=== PATIENT | male | born 1955 | race African-American/Black ===

== ENCOUNTER 2017-02-04 19:46 | Emergency (ER) | payer MEDICARE ==
[2017-02-04] MEDS ORDERED: predniSONE 20 MG TAB ONE (20:11)
--- NOTE | 2017-02-04 21:29 | RAD ---
SINGLE VIEW OF THE CHEST: 02/04/17 COMPARISON: 02/03/17 HISTORY: Shortness of breath and dyspnea. History of COPD. FINDINGS: Single view of the chest shows a normal sized cardiomediastinal silhouette. There is no evidence of consolidation, mass, or pleural effusion. Degenerative changes are seen in the spine. IMPRESSION: No evidence of acute cardiopulmonary disease. POS: [facility]
[2017-02-04 21:38] LABS: #Basophils 0.1 thou/uL (0.0-0.2); #Eosinphils 0.1 thou/uL (0.0-0.7); #Lymphocytes 2.7 thou/uL (1.20-3.40); #Monocytes 0.6 thou/uL (0.11-0.59); #Neutrophils 3.4 thou/uL (1.40-6.50); %Basophils 0.9 % (0.0-1.0); %Eosinophils 0.7 % (0.0-10.0); %Monocytes 9.1 % (0.0-10.0); Hematocrit 32.6 % (42.0-52.0); Red Blood Cell (RBC) Count 3.21 mill/uL (4.70-6.10); White Blood Cell (WBC) Count 6.8 thou/uL (4.8-10.8)
[2017-02-04 21:51] LABS: ALT (SGPT) 53 U/L (8-55); AST (SGOT) 59 U/L (5-34); Alkaline Phosphatase 94 U/L (40-150); Anion Gap 15 mmol/L (10-20); BUN (Urea Nitrogen) 9 mg/dL (8.4-25.7); Bilirubin, Total 0.2 mg/dL (0.2-1.2); CK (CPK) 82 U/L (30-200); Calc. Creatinine Clearance 0 mL/min (70-130); Calcium 8.6 mg/dL (7.8-10.44); Carbon Dioxide 23 mmol/L (22-29); Chloride 115 mmol/L (98-107); Estimated GFR-MDRD Greater than 90; Globulin 2.4 g/dL (2.4-3.5); Lipase 37 U/L (8-78); Protein, Total 5.8 g/dL (6.0-8.3)
[2017-02-04 21:55] LABS: Troponin I Less than 0.010 ng/mL (< 0.028)
--- NOTE | 2017-02-27 15:19 | EKG ---
Test Reason : SOB Blood Pressure : / mmHG Vent. Rate : 093 BPM Atrial Rate : 093 BPM P-R Int : 148 ms QRS Dur : 082 ms QT Int : 364 ms P-R-T Axes : 078 052 065 degrees QTc Int : 452 ms Normal sinus rhythm Normal ECG Confirmed by REED PENALOZA, ERICKA ([id number]), editor magazine FIDELINA CHANEY ([id number]) on 02/27/2017 3:19:07 PM Referred By: Confirmed By:ERICKA MCBRIDE MD
== END 2017-02-04 22:50 | disposition home or self-care (01) ==
LOC: ERS 19:46
DX: J44.1 Chronic obstructive pulmonary disease with (acute) exacerbation (principal); I11.0 Hypertensive heart disease with heart failure; I50.9 Heart failure, unspecified; F41.9 Anxiety disorder, unspecified; F32.9 Major depressive disorder, single episode, unspecified; F17.210 Nicotine dependence, cigarettes, uncomplicated
CPT/HCPCS: 36415; 71010; 80053; 82550; 82553; 83690; 83880; 84484; 85025; 93005; 94640; 94760; 99284; J7506; J7620

== ENCOUNTER 2017-02-07 21:35 | Inpatient (IN) | payer MEDICARE ==
[2017-02-07] MEDS ORDERED: methylPREDNISolone Sod Succ/PF 125 MG/2 ML VIAL ONE (22:15)
[2017-02-07 22:25] LABS: PTT 24.5 SEC (22.9-36.1); Prothrombin Time 12.2 SEC (12.0-14.7)
[2017-02-07 22:33] LABS: ALT (SGPT) 74 U/L (8-55); AST (SGOT) 134 U/L (5-34); Alkaline Phosphatase 92 U/L (40-150); Anion Gap 22 mmol/L (10-20); BUN (Urea Nitrogen) 16 mg/dL (8.4-25.7); Bilirubin, Total 0.5 mg/dL (0.2-1.2); CK (CPK) 89 U/L (30-200); Calc. Creatinine Clearance 0 mL/min (70-130); Calcium 9.3 mg/dL (7.8-10.44); Carbon Dioxide 21 mmol/L (22-29); Chloride 102 mmol/L (98-107); Estimated GFR-MDRD 86
[2017-02-07 22:43] LABS: #Basophils 0.1 thou/uL (0.0-0.2); #Eosinphils 0.1 thou/uL (0.0-0.7); #Lymphocytes 2.6 thou/uL (1.20-3.40); #Monocytes 0.8 thou/uL (0.11-0.59); #Neutrophils 4.7 thou/uL (1.40-6.50); %Basophils 0.7 % (0.0-1.0); %Eosinophils 1.2 % (0.0-10.0); %Lymphocytes 31.2 % (21.0-51.0); %Monocytes 9.8 % (0.0-10.0); Neutrophil 65 % (42-75); Red Blood Cell (RBC) Count 3.92 mill/uL (4.70-6.10); White Blood Cell (WBC) Count 8.2 thou/uL (4.8-10.8)
[2017-02-07 22:51] LABS: Troponin I Less than 0.010 ng/mL (< 0.028)
[2017-02-07 22:52] LABS: Acetaminophen Less than 6.0 mcg/mL (10.0-30.0); Salicylate Less than 8.0 mg/dL (15.0-30.0)
--- NOTE | 2017-02-07 23:39 | RAD ---
AP CHEST: Indication: Shortness of breath. Comparison: 02-04-17 FINDINGS: There are stable changes of emphysema. There is partial pneumonectomy changes involving the right beni ng base. Heart size is within normal limits. No pleural effusion, airspace consolidation, or pneumot horax is noted. There is deformity involving the posterior left fourth rib which is stable. There is healed fracture deformity involving the posterior left 9th rib and right 8th ribs. No acute osseous abnormality is evident. IMPRESSION: No acute abnormality. POS: [facility]
--- NOTE | 2017-02-08 00:17 | PDOC.EVN ---
Event Note - Event Note Event Note: [id number] h&p dictated 1. Acute copd exacerbation 2. alcohol abuse 3. h/o htn 4. h/o subdural hematoma
[2017-02-08] MEDS ORDERED: Albuterol Sulfate 2.5 mg/3 ml Neb NEB PRN (00:51)
[2017-02-08 01:30] LABS: Amphetamine Not Detected (NotDetected); Methadone Not Detected (NotDetected); Methamphetamine Not Detected (NotDetected)
[2017-02-08 01:30] LABS: Troponin I Less than 0.010 ng/mL (< 0.028)
[2017-02-08] MEDS: cefTRIAXone\\ROCEPHIN 1 GM in Sodium Chloride 0.9% 100 ML IVPB SCH (02:17)
[2017-02-08] MEDS: Azithromycin 500 MG in Sodium Chloride 0.9% 250 ML 250 ML IVPB SCH (02:22)
[2017-02-08 02:50] LABS: Troponin I Less than 0.010 ng/mL (< 0.028)
[2017-02-08 03:01] VITALS: BMI 18.9
--- NOTE | 2017-02-08 06:39 | HP ---
DATE OF ADMISSION: 02/07/2017 CHIEF COMPLAINT: Dyspnea. HISTORY OF PRESENT ILLNESS: The patient is a 61-year-old male with past medical history of COPD, hypertension, hepatitis C, subdural hematoma, alcohol abuse, now came to the ER because of dyspnea; dyspnea started a few days back. Dyspnea is associated with cough, cough is associated with sputum production and chest congestion, sputum green to yellow in color. Per ED physician, this is the third visit in the last one week patient came to the ER for COPD exacerbation. The patient was adviced to get admitted last week when he came for COPD exacerbations, left from the ER. The patient complains of chest pain, the coughing and trouble breathing. Denies any dizziness, denies lightheadedness, denies any nausea, denies any vomiting. PAST MEDICAL HISTORY: As per HPI. PAST SURGICAL HISTORY: Foot surgery. SOCIAL HISTORY: Positive for alcohol, positive for smoking. Denies any drugs. He did drink alcohol today. MEDICATIONS: Reviewed. FAMILY HISTORY: Positive for heart problems. REVIEW OF SYSTEMS: Constitutional: Denies any fever, denies any chills. Eyes : Negative. Ears: Negative. Throat: Negative. Cardiovascular System: Positive for chest pain. Respiratory System: Positive for cough and sputum production. Cranial Nerve System: Denies syncope, denies lightheadedness. Psychiatric: Denies anxiety. Musculoskeletal: Denies any joint deformities. Integument: Denies any rash. All other review of systems are reviewed and are negative. PHYSICAL EXAMINATION: VITAL SIGNS: Blood pressure 140/70, afebrile, heart rate 110, respiratory rate 18, pulse ox 98%. GENERAL: The patient appears tired. HEENT: Patent. Nose normal. Ears normal. Teeth intact. Tongue is moist. NECK: Supple, no JVD. CARDIOVASCULAR SYSTEM: S1, S2 present. Regular rate and rhythm. No murmurs, no rubs, no gallops. RESPIRATORY SYSTEM: Positive for rhonchi, diminished breath sounds present. Positive for wheezing. No accessory muscles were seen. GASTROINTESTINAL: Abdomen is soft, nontender, no guarding, no organomegaly, no masses felt. MUSCULOSKELETAL: No edema. INTEGUMENTARY: No rashes were seen. PSYCHIATRIC: Mood appropriate at this time. MUSCULOSKELETAL: No edema. IMAGING STUDIES AND LABORATORY DATA: Chest x-ray, no obvious infiltrates seen. Labs at the time of H and P, sodium 141, potassium 3.7, chloride 102, CO2 of 71, BUN 16, creatinine 1.06, AST 134, ALT 74. Troponin less than 0.010. Serum total protein 7. PT 12.2, INR 0.9. CBC showed a white count of 8.2, hemoglobin 13.3, platelet count is 190. ASSESSMENT AND PLAN: The patient is a 61-year-old female. 1. Chronic obstructive pulmonary disease exacerbation. Plan to start the patient on breathing treatments and IV steroids. Plan to monitor the patient closely. 2. History of hypertension. Monitor blood pressure. Continue blood pressure meds. 3. History of subdural hematoma and hepatitis C, stable. Continue to monitor closely. 4. Deep venous thrombosis and gastrointestinal prophylaxis, PPI and SCDs. 5. Alcohol abuse. Plan to start po thiamine, folic acid, and p.r.n. Ativan. The case was discussed in detail with the patient. The patient is FULL CODE. MTDD
[2017-02-08] MEDS: Metoprolol Tartrate 25 MG TAB PO SCH ×2 (08:59→21:10)
[2017-02-08] MEDS: Lisinopril 2.5 MG TAB PO SCH (08:59)
[2017-02-08] MEDS: Folic Acid 1 MG TAB PO SCH (08:59)
[2017-02-08] MEDS: HYDROcodone/Acetaminophen 10/325 mg Tablet PO PRN ×2 (11:04→21:10)
[2017-02-08 12:43] LABS: Anion Gap 10 mmol/L (-14-95); T. Carbon Dioxide 23.8 mmol/L (1.0-85.0); pH (Venous) 7.441 (7.35-7.45); vO2 Saturation-calc 97.8 % (0.0-100.0)
--- NOTE | 2017-02-08 15:47 | PQF ---
CLINICAL DOCUMENTATION IMPROVEMENT CLARIFICATION FORM: ICD-10 Updated PLEASE DO AN ADDENDUM TO THE PROGRESS NOTE WITH ANY DOCUMENTATION UPDATES OR ADDITIONS AND CARRY THROUGH TO DC SUMMARY. THANK YOU. Date: 02/08/17 ATTN: SERGIO Please sean a box (or boxes) below if a more specific term indicating a diagnosis and/or acuity level for this condition can be identified. Please exercise your independent, professional judgment in responding to the clarification form. Clinical indicators are provided on the bottom of this form for your review. Thank you. [ ] Under-nutrition / Malnutrition:[ ] Mild [ ] Moderate[ ] Severe [ ] Unspecified [ ] Protein Calorie Malnutrition: [ ] Mild [ ] Moderate [ ] Severe [ ] Unspecified [ ] Marasmus [ ] Nutritional Edema [ ] Other Malnutrition (please specify) __ [ ] No diagnosis of Malnutrition [ ] Does not apply to this patient [ ] Unable to determine [ ] Other diagnosis: [ ] Present on Admission (POA); [ ] Yes [ ] No [ ] Unable to determine BMI Less than 19Under weight 19 - 24.9Healthy 25.0 - 29.9Slightly Overweight 30.0 - 34.9Obese 35.0 - 39.9Severely Obese 40.0 and OverMorbidly Obese Values Commonly Used to Grade the Severity of Protein-Energy Malnutrition Measurement Normal Mild Moderate Severe Normal weight (%) 38990 8590 7585 < 75 Body mass index 1924 1818.9 1617.9 < 16 Serum albumin (g/dL) 3.55.0 3.13.4 2.43.0 < 2.4 Serum transferrin (mg/dL) 269507 330119 459359 < 150 Total lymphocyte count (per mm3) 50583598 27732470 800 1500 < 800 Delayed hypersensitivity index 2 2 1 0 From The Merck Manual of Diagnosis and Therapy, Edition 18, edited by Sean Bueno. Copyright 2006 by [employer], [place]. Available at : http://www.merck.com/mmpe/sec01/ch002/ki420s.html. Accessed 12/01/06. The following CLINICAL INDICATORS - Signs / Symptoms are documented in the medical record: BMI 18.9 DIETARY NOTE 02/08: "REPORTS UBW AT 140 LBS NUT HAS RECENTLY LOST 20 POUNDS ' SINCE BEING SICK ON AND OFF'" "KCAL AND PROTEIN REQUIREMENTS NOT MET" RISKS: ALCOHOL ABUSE TREATMENT: DIETARY CONSULT (This form is maintained as a part of the permanent medical record) 2015 [employer]. All Rights Reserved JOSE [email or web address] Office: [phone] MTDD
[2017-02-08] MEDS: Sodium Chloride 0.9% 1,000 ML IV SCH (19:43)
[2017-02-08] MEDS: Mirtazapine 15 MG TAB PO SCH (21:11)
[2017-02-09] MEDS: cefTRIAXone\\ROCEPHIN 1 GM in Sodium Chloride 0.9% 100 ML IVPB SCH (00:21)
[2017-02-09] MEDS: HYDROcodone/Acetaminophen 10/325 mg Tablet PO PRN ×3 (00:32→21:42)
[2017-02-09] MEDS: Azithromycin 500 MG in Sodium Chloride 0.9% 250 ML 250 ML IVPB SCH (02:18)
[2017-02-09 06:34] LABS: Anion Gap 12 mmol/L (10-20); BUN (Urea Nitrogen) 17 mg/dL (8.4-25.7); Calc. Creatinine Clearance 75 mL/min (70-130); Carbon Dioxide 27 mmol/L (22-29); Chloride 103 mmol/L (98-107); Estimated GFR-MDRD Greater than 90
[2017-02-09 06:36] LABS: #Lymphocytes 0.5 thou/uL (1.20-3.40); #Monocytes 0.5 thou/uL (0.11-0.59); #Neutrophils 7.8 thou/uL (1.40-6.50); %Basophils 0.3 % (0.0-1.0); %Eosinophils 0.1 % (0.0-10.0); Hematocrit 39.1 % (42.0-52.0); Mean Platelet Volume 8.8 fL (7.4-10.4); White Blood Cell (WBC) Count 8.9 thou/uL (4.8-10.8)
[2017-02-09] MEDS: Lisinopril 2.5 MG TAB PO SCH (09:35)
[2017-02-09] MEDS: Folic Acid 1 MG TAB PO SCH (09:35)
[2017-02-09] MEDS: Metoprolol Tartrate 25 MG TAB PO SCH ×2 (09:35→21:21)
--- NOTE | 2017-02-09 11:02 | PQF ---
CLINICAL DOCUMENTATION IMPROVEMENT CLARIFICATION FORM: ICD-10 Updated PLEASE DO AN ADDENDUM TO THE PROGRESS NOTE WITH ANY DOCUMENTATION UPDATES OR ADDITIONS AND CARRY THROUGH TO DC SUMMARY. THANK YOU. Date: 02/09/17 ATTN: DR. HILL Please sean a box (or boxes) below if a more specific term indicating a diagnosis and/or acuity level for this condition can be identified. Please exercise your independent, professional judgment in responding to the clarification form. Clinical indicators are provided on the bottom of this form for your review. Thank you. [ ] Under-nutrition / Malnutrition:[ ] Mild [ ] Moderate[ ] Severe [ ] Unspecified [ ] Protein Calorie Malnutrition: [ ] Mild [ ] Moderate [ ] Severe [ ] Unspecified [ ] Marasmus [ ] Nutritional Edema [ ] Other Malnutrition (please specify) __ [ ] No diagnosis of Malnutrition [ ] Does not apply to this patient [ ] Unable to determine [ ] Other diagnosis: [ ] Present on Admission (POA); [ ] Yes [ ] No [ ] Unable to determine BMI Less than 19Under weight 19 - 24.9Healthy 25.0 - 29.9Slightly Overweight 30.0 - 34.9Obese 35.0 - 39.9Severely Obese 40.0 and OverMorbidly Obese Values Commonly Used to Grade the Severity of Protein-Energy Malnutrition Measurement Normal Mild Moderate Severe Normal weight (%) 18603 8590 7585 < 75 Body mass index 1924 1818.9 1617.9 < 16 Serum albumin (g/dL) 3.55.0 3.13.4 2.43.0 < 2.4 Serum transferrin (mg/dL) 521700 507107 825098 < 150 Total lymphocyte count (per mm3) 73190188 82572141 800 1500 < 800 Delayed hypersensitivity index 2 2 1 0 From The Merck Manual of Diagnosis and Therapy, Edition 18, edited by Sean Bueno. Copyright 2006 by [employer], [place]. Available at : http://www.merck.com/mmpe/sec01/ch002/fn014v.html. Accessed 12/01/06. The following CLINICAL INDICATORS - Signs / Symptoms are documented in the medical record: BMI 18.9 DIETARY NOTE 02/08: "REPORTS UBW AT 140 LBS NUT HAS RECENTLY LOST 20 POUNDS ' SINCE BEING SICK ON AND OFF'" "KCAL AND PROTEIN REQUIREMENTS NOT MET" RISKS: ALCOHOL ABUSE TREATMENT: DIETARY CONSULT (This form is maintained as a part of the permanent medical record) 2014 [email or web address]. All Rights Reserved JOSE [email or web address] Office: [phone] [facility]
--- NOTE | 2017-02-09 13:02 | PDOC.PN ---
- Subjective Encounter Start Date: 02/09/17 Encounter Start Time: 13:00 breathing better no f/c no n/v - Objective MAR Reviewed: Yes Vital Signs & Weight: Vital Signs (12 hours) Temp Pulse Resp BP BP Pulse Ox 02/09/17 09:35 70 118/80 02/09/17 08:00 97.4 F L 70 18 118/80 95 02/09/17 04:00 97.8 F 67 20 148/79 H 95 Weight Admit Weight 120 lb 14.4 oz Weight 125 lb 6.4 oz I&O: 02/08/17 02/09/17 02/10/17 06:59 06:59 06:59 Intake Total 630 5208 Output Total 350 3425 Balance 280 1783 Result Diagrams: 02/09/17 05:37 02/09/17 05:37 Phys Exam - Physical Examination Constitutional: NAD HEENT: PERRLA Neck: no JVD scattered wheezing, good air entry Cardiovascular: RRR Gastrointestinal: non-tender Musculoskeletal: pulses present Neurological: moves all 4 limbs Psychiatric: A&O x 3 Dx/Plan (1) COPD exacerbation Code(s): J44.1 - CHRONIC OBSTRUCTIVE PULMONARY DISEASE W (ACUTE) EXACERBATION Status: Acute (2) Alcohol abuse Code(s): F10.10 - ALCOHOL ABUSE, UNCOMPLICATED Status: Chronic (3) Anxiety and depression Code(s): F41.9 - ANXIETY DISORDER, UNSPECIFIED; F32.9 - MAJOR DEPRESSIVE DISORDER, SINGLE EPISODE, UNSPECIFIED Status: Chronic (4) Chronic pain Code(s): G89.29 - OTHER CHRONIC PAIN Status: Chronic (5) Hepatitis C Code(s): B19.20 - UNSPECIFIED VIRAL HEPATITIS C WITHOUT HEPATIC COMA Status: Chronic (6) Hypertension Code(s): I10 - ESSENTIAL (PRIMARY) HYPERTENSION Status: Chronic (7) Tobacco abuse Code(s): Z72.0 - TOBACCO USE Status: Chronic - Plan * pt is under weight with some h/o wt loss. will have pcp evaluate that as out pt. * he has been advised to stop smoking and drinking * copd is better- will change to po steroids and po abx * d/c in am if clinically better
[2017-02-09] MEDS: Sodium Chloride 0.9% 1,000 ML IV SCH (14:53)
[2017-02-09] MEDS: predniSONE 20 MG TAB PO SCH (17:25)
[2017-02-09] MEDS: Mirtazapine 15 MG TAB PO SCH (21:21)
[2017-02-10] MEDS: HYDROcodone/Acetaminophen 10/325 mg Tablet PO PRN ×2 (01:55→09:40)
[2017-02-10 06:48] LABS: #Lymphocytes 1.5 thou/uL (1.20-3.40); #Monocytes 0.6 thou/uL (0.11-0.59); #Neutrophils 8.6 thou/uL (1.40-6.50); %Basophils 0.1 % (0.0-1.0); %Eosinophils 0.2 % (0.0-10.0); %Lymphocytes 14.1 % (21.0-51.0); %Monocytes 5.8 % (0.0-10.0); Hematocrit 37.5 % (42.0-52.0); Mean Platelet Volume 9.2 fL (7.4-10.4); Red Blood Cell (RBC) Count 3.69 mill/uL (4.70-6.10); White Blood Cell (WBC) Count 10.8 thou/uL (4.8-10.8)
[2017-02-10 06:59] LABS: Anion Gap 11 mmol/L (10-20); BUN (Urea Nitrogen) 20 mg/dL (8.4-25.7); Calc. Creatinine Clearance 75 mL/min (70-130); Carbon Dioxide 25 mmol/L (22-29); Chloride 106 mmol/L (98-107); Estimated GFR-MDRD Greater than 90
[2017-02-10 08:11] VITALS: BP 146/97; TEMP 98.3
[2017-02-10] MEDS: Lisinopril 2.5 MG TAB PO SCH (09:39)
[2017-02-10] MEDS: Folic Acid 1 MG TAB PO SCH (09:39)
[2017-02-10] MEDS: Metoprolol Tartrate 25 MG TAB PO SCH (09:40)
[2017-02-10] MEDS: predniSONE 20 MG TAB PO SCH (09:40)
--- NOTE | 2017-02-10 11:36 | PDOC.PN ---
- Subjective Encounter Start Date: 02/10/17 Encounter Start Time: 11:36 Patient seen and examined. No new complaints. No overnight events - Objective MAR Reviewed: Yes Vital Signs & Weight: Vital Signs (12 hours) Temp Pulse Resp BP BP Pulse Ox 02/10/17 09:39 91 146/97 H 02/10/17 07:05 98.3 F 91 18 146/97 H 94 L 02/10/17 04:00 98.0 F 61 18 130/84 93 L Weight Admit Weight 120 lb 14.4 oz Weight 125 lb 6.4 oz I&O: 02/09/17 02/10/17 02/11/17 06:59 06:59 06:59 Intake Total 5208 Output Total 3425 Balance 1783 Result Diagrams: 02/10/17 06:15 02/10/17 06:15 Phys Exam - Physical Examination Constitutional: NAD HEENT: PERRLA Neck: no JVD Respiratory: no rales Cardiovascular: no significant murmur Gastrointestinal: non-tender Musculoskeletal: pulses present Neurological: normal sensation Psychiatric: A&O x 3 Dx/Plan (1) COPD exacerbation Code(s): J44.1 - CHRONIC OBSTRUCTIVE PULMONARY DISEASE W (ACUTE) EXACERBATION Status: Resolved (2) Alcohol abuse Code(s): F10.10 - ALCOHOL ABUSE, UNCOMPLICATED Status: Chronic (3) Anxiety and depression Code(s): F41.9 - ANXIETY DISORDER, UNSPECIFIED; F32.9 - MAJOR DEPRESSIVE DISORDER, SINGLE EPISODE, UNSPECIFIED Status: Chronic (4) Chronic pain Code(s): G89.29 - OTHER CHRONIC PAIN Status: Chronic (5) Hepatitis C Code(s): B19.20 - UNSPECIFIED VIRAL HEPATITIS C WITHOUT HEPATIC COMA Status: Chronic (6) Hypertension Code(s): I10 - ESSENTIAL (PRIMARY) HYPERTENSION Status: Chronic (7) Tobacco abuse Code(s): Z72.0 - TOBACCO USE Status: Chronic - Plan * . doing well d/c home
[2017-02-10] MEDS: Sodium Chloride 0.9% 1,000 ML IV SCH (11:46)
--- NOTE | 2017-02-10 14:28 | DIS ---
DATE OF ADMISSION: 02/08/2017 DATE OF DISCHARGE: 02/10/2017 DISCHARGE DIAGNOSES: 1. Acute chronic obstructive pulmonary disease exacerbation, resolved. 2. Acute bronchitis, better. 3. Alcohol abuse, counseled. 4. Tobacco abuse, the patient was counseled. 5. Anxiety, stable. 6. Chronic pain, stable. 7. Hepatitis C, stable. 8. Hypertension, stable. DISCHARGE MEDICATIONS: Include all home medications plus Levaquin 500 mg p.o. daily for 5 days and Medrol Dosepak. BRIEF HOSPITAL COURSE: This is a 61-year-old pleasant gentleman with a history of smoking and COPD, who came into the hospital with dyspnea. Please refer to the admitting physician's H\T\P for furth er details. He had some cough and chest congestion as well as chest x-ray was negative for pneumoni a. The patient was treated as COPD exacerbation secondary to acute bronchitis with IV antibiotics, nebulizer treatments, IV steroids. He improved during this hospital stay. Steroids were transition ed to p.o. He feels much better right now. He has been asked not to smoke and drink. He understan ds all this. He is asked to come back to the emergency room in case symptoms recur. Right now, he is medically stable to be discharged. He is asked to follow up with PCP. He is medically stable to be discharged. Total time for this discharge took 35 minutes.
--- NOTE | 2017-02-12 14:55 | EKG ---
Test Reason : SOB Blood Pressure : / mmHG Vent. Rate : 114 BPM Atrial Rate : 114 BPM P-R Int : 134 ms QRS Dur : 082 ms QT Int : 332 ms P-R-T Axes : 079 051 060 degrees QTc Int : 457 ms Sinus tachycardia Anterior infarct , age undetermined Abnormal ECG Confirmed by KALEE ARIAS D.O. ([id number]), makeup editor FIDELINA CHANEY ([id number]) on 02/12/2017 2:55:42 PM Referred By: Confirmed By:KALEE ARIAS D.O.
== END 2017-02-10 12:09 | disposition home or self-care (01) | DRG 192 ==
LOC: ERS 21:35 → 2NO 02-08 01:04
PROVIDERS: ADMIT Internal Medicine; ATTEND Internal Medicine
DX: J44.0 Chronic obstructive pulmonary disease with (acute) lower respiratory infection (principal); I10 Essential (primary) hypertension; J20.9 Acute bronchitis, unspecified; J44.1 Chronic obstructive pulmonary disease with (acute) exacerbation; B18.2 Chronic viral hepatitis C; Z72.0 Tobacco use; F10.10 Alcohol abuse, uncomplicated; F41.9 Anxiety disorder, unspecified; G89.29 Other chronic pain; F32.9 Major depressive disorder, single episode, unspecified
CPT/HCPCS: 36415; 71010; 80048; 80053; 80306; 80307; 82330; 82435; 82550; 82553; 82803; 83880; 84132; 84295; 84484; 85014; 85025; 85610; 85730; 93005; 96374; A4216; J0456; J0696; J2920; J2930; J7050; J7506; J7620

== ENCOUNTER 2017-02-15 18:49 | Emergency (ER) | payer MEDICARE, MEDICAID ==
[2017-02-15] MEDS ORDERED: Dexamethasone 4 mg/ml Vial ONE (19:24)
[2017-02-15] MEDS ORDERED: Albuterol Sulfate 2.5 mg/3 ml Neb ONE (19:24)
[2017-02-15] MEDS ORDERED: Albuterol Sulfate 2.5 mg/0.5 ml Neb ONE (19:24)
== END 2017-02-15 19:51 | disposition left against medical advice (07) ==
LOC: ERS 18:49
DX: R05 Cough (principal); I11.0 Hypertensive heart disease with heart failure; I50.9 Heart failure, unspecified; J44.9 Chronic obstructive pulmonary disease, unspecified; F32.9 Major depressive disorder, single episode, unspecified; F41.9 Anxiety disorder, unspecified; F17.210 Nicotine dependence, cigarettes, uncomplicated; Z79.899 Other long term (current) drug therapy
CPT/HCPCS: 94640; 96374; J1100; J7611

== ENCOUNTER 2017-03-03 17:55 | Emergency (ER) | payer MEDICARE, MEDICAID ==
[2017-03-03] MEDS ORDERED: methylPREDNISolone Sod Succ/PF 125 MG/2 ML VIAL ONE (18:23)
--- NOTE | 2017-03-03 19:01 | RAD ---
PORTABLE CHEST ONE VIEW: 03/03/17 at 6:27 p.m. HISTORY: Shortness of breath, dyspnea. FINDINGS: Comparison is made with exam of 02/07/17. The heart size is normal. The aorta is tortuous. No focal areas of consolidation, pneumothorax or pl eural effusions are seen. Emphysematous changes are again noted. Healed fracture deformity of the po sterior left 9th rib and right 8th rib again seen. IMPRESSION: No acute process. POS: [facility]
[2017-03-03 19:12] LABS: ALT (SGPT) 51 U/L (8-55); AST (SGOT) 59 U/L (5-34); Alkaline Phosphatase 84 U/L (40-150); Anion Gap 17 mmol/L (10-20); BUN (Urea Nitrogen) 6 mg/dL (8.4-25.7); Bilirubin, Total 0.8 mg/dL (0.2-1.2); Calc. Creatinine Clearance 0 mL/min (70-130); Calcium 9.8 mg/dL (7.8-10.44); Carbon Dioxide 24 mmol/L (22-29); Chloride 99 mmol/L (98-107); Estimated GFR-MDRD Greater than 90; Protein, Total 7.4 g/dL (6.0-8.3)
[2017-03-03 19:31] LABS: #Basophils 0.1 thou/uL (0.0-0.2); #Eosinphils 0.1 thou/uL (0.0-0.7); #Lymphocytes 3.2 thou/uL (1.20-3.40); #Monocytes 0.8 thou/uL (0.11-0.59); #Neutrophils 3.8 thou/uL (1.40-6.50); %Basophils 1.1 % (0.0-1.0); %Eosinophils 0.8 % (0.0-10.0); %Lymphocytes 39.9 % (21.0-51.0); %Monocytes 10.4 % (0.0-10.0); Band 3 % (5-11); Hematocrit 43.4 % (42.0-52.0); Macrocytosis SLIGHT = 6-15 cells (100X) (0-5/hpf); Neutrophil 40 % (42-75); Ovalocytes SLIGHT = 2-5 cells (100X) (0-1/hpf); Reactive Lymphocytes 8 % (0-10); Red Blood Cell (RBC) Count 4.25 mill/uL (4.70-6.10); White Blood Cell (WBC) Count 7.9 thou/uL (4.8-10.8)
== END 2017-03-03 22:23 | disposition home or self-care (01) ==
LOC: ERS 17:55
DX: J44.1 Chronic obstructive pulmonary disease with (acute) exacerbation (principal); I11.0 Hypertensive heart disease with heart failure; I50.9 Heart failure, unspecified; F41.9 Anxiety disorder, unspecified; F32.9 Major depressive disorder, single episode, unspecified; F17.210 Nicotine dependence, cigarettes, uncomplicated; Z79.899 Other long term (current) drug therapy
CPT/HCPCS: 71010; 80053; 85025; 94640; 96374; J2930; J7620

== ENCOUNTER 2017-03-10 20:07 | Emergency (ER) | payer MEDICARE, MEDICAID | END 2017-03-10 20:35 | disposition left against medical advice (07) | LOC: ERS 20:07 | DX: F10.10 Alcohol abuse, uncomplicated (principal); J44.9 Chronic obstructive pulmonary disease, unspecified; M87.9 Osteonecrosis, unspecified; I11.0 Hypertensive heart disease with heart failure; I50.9 Heart failure, unspecified; F41.9 Anxiety disorder, unspecified; F32.9 Major depressive disorder, single episode, unspecified; F17.210 Nicotine dependence, cigarettes, uncomplicated; Z79.899 Other long term (current) drug therapy | CPT/HCPCS: 93005 ==

== ENCOUNTER 2017-03-11 00:23 | Emergency (ER) | payer MEDICARE, MEDICAID ==
[2017-03-11] MEDS ORDERED: Dexamethasone 10 MG/ML VIAL ONE (02:03)
[2017-03-11 02:15] LABS: #Basophils 0.1 thou/uL (0.0-0.2); #Eosinphils 0.1 thou/uL (0.0-0.7); #Monocytes 0.8 thou/uL (0.11-0.59); #Neutrophils 2.7 thou/uL (1.40-6.50); %Basophils 2.2 % (0.0-1.0); %Eosinophils 1.3 % (0.0-10.0); %Lymphocytes 44.6 % (21.0-51.0); Hematocrit 42.1 % (42.0-52.0); Mean Platelet Volume 8.3 fL (7.4-10.4); Red Blood Cell (RBC) Count 4.05 mill/uL (4.70-6.10); White Blood Cell (WBC) Count 6.7 thou/uL (4.8-10.8)
[2017-03-11 02:33] LABS: ALT (SGPT) 35 U/L (8-55); AST (SGOT) 54 U/L (5-34); Alkaline Phosphatase 116 U/L (40-150); Anion Gap 14 mmol/L (10-20); BUN (Urea Nitrogen) 9 mg/dL (8.4-25.7); Bilirubin, Total 0.4 mg/dL (0.2-1.2); Calc. Creatinine Clearance 0 mL/min (70-130); Calcium 9.3 mg/dL (7.8-10.44); Carbon Dioxide 28 mmol/L (22-29); Chloride 109 mmol/L (98-107); Estimated GFR-MDRD Greater than 90; Globulin 2.9 g/dL (2.4-3.5); Protein, Total 7.1 g/dL (6.0-8.3)
[2017-03-11 02:37] LABS: Troponin I Less than 0.010 ng/mL (< 0.028)
--- NOTE | 2017-03-11 07:59 | RAD ---
RADIOGRAPH CHEST 1 VIEW: Date: 03/11/17 Time: 0106 hours COMPARISON: 04/21/16. HISTORY: 61-year-old male with dyspnea. FINDINGS: There is hyperinflation of the lungs, consistent with COPD. There is no evidence of air space densi ty, pneumothorax, or pulmonary edema. The left lateral costophrenic angle is sharp. Right lateral c ostophrenic angle is blunted, unchanged since 04/21/16. There is no cardiomegaly. There is no interv al change overall. IMPRESSION: 1. No acute pulmonary findings. 2. Emphysema. 3. Mild right lateral basilar chronic pleural thickening. jn [] POS: [facility]
== END 2017-03-11 03:40 | disposition home or self-care (01) ==
LOC: ERS 00:23
DX: J44.1 Chronic obstructive pulmonary disease with (acute) exacerbation (principal); F41.9 Anxiety disorder, unspecified; F32.9 Major depressive disorder, single episode, unspecified; F17.210 Nicotine dependence, cigarettes, uncomplicated; I11.0 Hypertensive heart disease with heart failure; I50.9 Heart failure, unspecified; Z79.899 Other long term (current) drug therapy
CPT/HCPCS: 36415; 71010; 80053; 82553; 84484; 85025; 94640; 96372; J1100; J7620

== ENCOUNTER 2017-05-22 19:00 | Emergency (ER) | payer MEDICARE, MEDICAID ==
[~2017-05-22 19:00] MED LIST: ISOVUE-370 76%-LOCM 1 ML ONE
[2017-05-22 19:41] LABS: #Basophils 0.1 thou/uL (0.0-0.2); #Eosinphils 0.2 thou/uL (0.0-0.7); #Lymphocytes 2.1 thou/uL (1.20-3.40); #Monocytes 0.6 thou/uL (0.11-0.59); #Neutrophils 2.6 thou/uL (1.40-6.50); %Basophils 1.4 % (0.0-1.0); %Eosinophils 3.2 % (0.0-10.0); %Lymphocytes 38.6 % (21.0-51.0); %Monocytes 10.5 % (0.0-10.0); %Neutrophils 46.4 % (42.0-75.0); Hemoglobin 13.2 g/dL (14.0-18.0); Mean Corpuscular HGB CONC 34.4 g/dL (32.0-36.0); Mean Corpuscular Hemoglobin 33.5 pg (27.0-31.0); Mean Corpuscular Volume 97.4 fl (80.0-94.0); Platelet Count 183 thou/uL (130-400); RBC Distribution Width 12.4 % (11.5-14.5); Red Blood Cell (RBC) Count 3.95 mill/uL (4.70-6.10); White Blood Cell (WBC) Count 5.5 thou/uL (4.8-10.8)
--- NOTE | 2017-05-22 19:52 | RAD ---
CHEST ONE VIEW 05/22/17 HISTORY: Dyspnea. COMPARISON: Chest one view, 03/18/17. FINDINGS: Chronic blunting of the right lateral costophrenic sulcus. Suture material right lower lobe. No new focal air space consolidation, pneumothorax or effusion. Cardiac silhouette and mediastinal co ntours are within normal limits. IMPRESSION: No acute intrathoracic abnormality. POS: [facility]
[2017-05-22 20:04] LABS: ALT (SGPT) 53 U/L (8-55); AST (SGOT) 123 U/L (5-34); Albumin 4.5 g/dL (3.5-5.0); Alkaline Phosphatase 82 U/L (40-150); Anion Gap 18 mmol/L (10-20); BUN (Urea Nitrogen) 7 mg/dL (8.4-25.7); Bilirubin, Total 0.5 mg/dL (0.2-1.2); CK (CPK) 229 U/L (30-200); Calc. Creatinine Clearance 0 mL/min (70-130); Carbon Dioxide 22 mmol/L (22-29); Chloride 103 mmol/L (98-107); Estimated GFR-MDRD Greater than 90; Globulin 3.3 g/dL (2.4-3.5); Glucose 73 mg/dL (70-105); Lipase 27 U/L (8-78); Potassium 4.3 mmol/L (3.5-5.1); Protein, Total 7.8 g/dL (6.0-8.3); Sodium 139 mmol/L (136-145)
[2017-05-22] MEDS ORDERED: methylPREDNISolone Sod Succ/PF 125 MG/2 ML VIAL ONE (20:04)
[2017-05-22 20:05] LABS: CKMB 3.7 ng/mL (0-6.6); Troponin I Less than 0.010 ng/mL (< 0.028)
[2017-05-22 21:07] LABS: Bilirubin Negative (Negative); Blood, Urine Negative (Negative); Clarity CLEAR (Clear); Glucose, Urine (Dipstick) Negative (Negative); Leukocyte Negative (Negative); Nitrite Negative (Negative); Protein, Urine (Dipstick) Negative (Neg-Trace); Specific Gravity, Urine 1.011 (1.002-1.036); Urobilinogen 0.2 mg/dL (0.2-1.0); pH, Urine 5.5 (5.0-9.0)
--- NOTE | 2017-05-22 21:32 | CT ---
CTA CHEST WITH 3D VOLUME RENDERING 05/22/17 Reference made to 11/12/16. CLINICAL HISTORY: Intermittent, progressive shortness of breath. FINDINGS: There is no large, central filling defect of pulmonary arterial system to indicate pulmonary embolus. The thoracic aorta is nonaneurysmal. There is extensive pulmonary emphysema. Incompletely assessed s ubcentimeter hypodensity of the lateral aspect of the right kidney is incompletely evaluated. There i s diffuse osseous degenerative change. IMPRESSION: 1. No large, central pulmonary embolus. 2. Pulmonary emphysema. POS: [facility]
[2017-05-23 00:41] LABS: Lactic Acid 2.2 mmol/L (0.5-2.2)
--- NOTE | 2017-06-12 22:41 | EKG ---
Test Reason : Blood Pressure : / mmHG Vent. Rate : 084 BPM Atrial Rate : 084 BPM P-R Int : 146 ms QRS Dur : 080 ms QT Int : 382 ms P-R-T Axes : 079 042 057 degrees QTc Int : 451 ms Normal sinus rhythm Early repolarization Normal ECG Confirmed by WARREN LAKE ([id number]), editorial cartoonist FIDELINA CHANEY ([id number]) on 06/12/2017 10:40:35 PM Referred By: Confirmed By:W[place]EN [place]
== END 2017-05-23 01:05 | disposition home or self-care (01) ==
LOC: ERS 19:00
DX: J44.1 Chronic obstructive pulmonary disease with (acute) exacerbation (principal); B19.20 Unspecified viral hepatitis C without hepatic coma; I11.0 Hypertensive heart disease with heart failure; I50.9 Heart failure, unspecified; F41.9 Anxiety disorder, unspecified; F32.9 Major depressive disorder, single episode, unspecified; F17.210 Nicotine dependence, cigarettes, uncomplicated; Z71.6 Tobacco abuse counseling
CPT/HCPCS: 36415; 71045; 71275; 80053; 81003; 82553; 83605; 83690; 83880; 84484; 85025; 85379; 93005; 94640; 94760; 96361; 96365; 96375; 99406; J1956; J2930; J7620

== ENCOUNTER 2017-06-09 08:14 | Emergency (ER) | payer MEDICARE, MEDICAID ==
[2017-06-09 08:56] LABS: #Eosinphils 0.1 thou/uL (0.0-0.7); #Lymphocytes 1.9 thou/uL (1.20-3.40); #Monocytes 0.6 thou/uL (0.11-0.59); #Neutrophils 4.4 thou/uL (1.40-6.50); %Basophils 0.1 % (0.0-1.0); %Eosinophils 1.4 % (0.0-10.0); %Lymphocytes 26.8 % (21.0-51.0); %Monocytes 9.2 % (0.0-10.0); %Neutrophils 62.5 % (42.0-75.0); Hemoglobin 14.8 g/dL (14.0-18.0); Mean Corpuscular HGB CONC 31.8 g/dL (32.0-36.0); Mean Corpuscular Hemoglobin 31.6 pg (27.0-31.0); Mean Corpuscular Volume 99.5 fl (80.0-94.0); Mean Platelet Volume 8.3 fL (7.4-10.4); Platelet Count 254 thou/uL (130-400); RBC Distribution Width 13.6 % (11.5-14.5); Red Blood Cell (RBC) Count 4.67 mill/uL (4.70-6.10)
[2017-06-09 09:16] LABS: CKMB 1.5 ng/mL (0-6.6); Troponin I Less than 0.010 ng/mL (< 0.028)
[2017-06-09 10:32] LABS: Albumin 4.3 g/dL (3.5-5.0)
[2017-06-09 10:33] LABS: Chloride 106 mmol/L (98-107); Potassium 4.1 mmol/L (3.5-5.1); Sodium 142 mmol/L (136-145)
[2017-06-09 10:34] LABS: Calcium 9.7 mg/dL (7.8-10.44); Glucose 64 mg/dL (70-105)
[2017-06-09] MEDS ORDERED: Albuterol Sulfate 2.5 mg/3 ml Neb ONE (10:34)
[2017-06-09 10:35] LABS: Globulin 3.3 g/dL (2.4-3.5); Protein, Total 7.6 g/dL (6.0-8.3)
[2017-06-09 10:36] LABS: Anion Gap 18 mmol/L (10-20); Bilirubin, Total 0.5 mg/dL (0.2-1.2); Carbon Dioxide 22 mmol/L (22-29)
[2017-06-09 10:37] LABS: Alcohol 167 mg/dL (Less than 10); Alkaline Phosphatase 78 U/L (40-150)
[2017-06-09 10:38] LABS: Calc. Creatinine Clearance 0 mL/min (70-130); Estimated GFR-MDRD Greater than 90
[2017-06-09 10:39] LABS: BUN (Urea Nitrogen) 9 mg/dL (8.4-25.7)
--- NOTE | 2017-06-09 10:39 | RAD ---
CHEST ONE VIEW: History: Dyspnea. Comparison: 05-22-17 FINDINGS: Small right pleural effusion. Cardiac silhouette and mediastinal contours are within normal limits. N o focal consolidation. There is trace material in the right lower lobe. IMPRESSION: Blunting right lateral costophrenic sulcus may be chronic scarring. POS: [facility]
[2017-06-09 10:40] LABS: ALT (SGPT) 27 U/L (8-55); AST (SGOT) 50 U/L (5-34)
[2017-06-09] MEDS ORDERED: Azithromycin 250 MG TAB ONE (11:57)
== END 2017-06-09 12:06 | disposition home or self-care (01) ==
LOC: ERS 08:14
DX: J40 Bronchitis, not specified as acute or chronic (principal); J44.9 Chronic obstructive pulmonary disease, unspecified; I11.0 Hypertensive heart disease with heart failure; I50.9 Heart failure, unspecified; F41.9 Anxiety disorder, unspecified; F32.9 Major depressive disorder, single episode, unspecified; F17.210 Nicotine dependence, cigarettes, uncomplicated; Z79.899 Other long term (current) drug therapy
CPT/HCPCS: 36415; 71045; 80053; 80307; 82553; 84484; 85025; 93005; 94640; J7611; J7620

== ENCOUNTER 2017-06-09 18:15 | Emergency (ER) | payer MEDICARE ==
[2017-06-09] MEDS ORDERED: predniSONE 20 MG TAB ONE (20:17)
== END 2017-06-09 20:30 | disposition home or self-care (01) ==
LOC: ERS 18:15
DX: J40 Bronchitis, not specified as acute or chronic (principal); J44.9 Chronic obstructive pulmonary disease, unspecified; I11.0 Hypertensive heart disease with heart failure; I50.9 Heart failure, unspecified; F41.9 Anxiety disorder, unspecified; F32.9 Major depressive disorder, single episode, unspecified; F17.210 Nicotine dependence, cigarettes, uncomplicated
CPT/HCPCS: 36415; 71045; 80053; 80307; 82553; 84484; 85025; 93005; 94640; J7506; J7611; J7620

== ENCOUNTER 2017-07-19 15:44 | Emergency (ER) | payer MEDICARE, MEDICAID ==
[2017-07-19] MEDS ORDERED: methylPREDNISolone Sod Succ/PF 125 MG/2 ML VIAL ONE (17:09)
[2017-07-19 17:19] LABS: ALT (SGPT) 33 U/L (8-55); AST (SGOT) 70 U/L (5-34); Alkaline Phosphatase 74 U/L (40-150); Anion Gap 14 mmol/L (10-20); BUN (Urea Nitrogen) 7 mg/dL (8.4-25.7); Bilirubin, Total 0.3 mg/dL (0.2-1.2); Calc. Creatinine Clearance 0 mL/min (70-130); Calcium 9.2 mg/dL (7.8-10.44); Carbon Dioxide 26 mmol/L (22-29); Chloride 102 mmol/L (98-107); Estimated GFR-MDRD Greater than 90; Globulin 2.7 g/dL (2.4-3.5); Glucose 89 mg/dL (70-105); Potassium 3.9 mmol/L (3.5-5.1); Protein, Total 6.7 g/dL (6.0-8.3); Sodium 138 mmol/L (136-145)
[2017-07-19 17:23] LABS: Hemoglobin 11.9 g/dL (14.0-18.0); Mean Corpuscular HGB CONC 33.1 g/dL (32.0-36.0); Mean Corpuscular Hemoglobin 31.6 pg (27.0-31.0); Mean Corpuscular Volume 95.3 fl (80.0-94.0); Mean Platelet Volume 7.8 fL (7.4-10.4); Platelet Count 182 thou/uL (130-400); RBC Distribution Width 12.2 % (11.5-14.5); Red Blood Cell (RBC) Count 3.78 mill/uL (4.70-6.10); White Blood Cell (WBC) Count 5.6 thou/uL (4.8-10.8)
[2017-07-19 17:25] LABS: CKMB 1.8 ng/mL (0-6.6); Troponin I Less than 0.010 ng/mL (< 0.028)
[2017-07-19 17:30] LABS: Band 4 % (5-11); Eosinophils 4 % (0-10); Lymphocytes 44 % (21-51); MDiff Complete? YES; Metamyelocyte 5 % (0-0); Monocytes 3 % (0-10); Myelocyte 1 % (0-0); Neutrophil 39 % (42-75); PLT Morphology Comment Appears Adequate; RBC Morphology Normal
[2017-07-19 17:34] LABS: CK (CPK) 141 U/L (30-200); Lipase 21 U/L (8-78)
--- NOTE | 2017-07-19 18:13 | RAD ---
CHEST ONE VIEW: History: Shortness of breath. Comparison: 06-09-17 FINDINGS: There is mild blunting of the right lateral costophrenic sulcus, similar. No pneumothorax. No large e ffusion. There is some thickening of the right sided fissure. No acute osseous abnormality is appreciated. IMPRESSION: No acute intrathoracic abnormality. POS: [facility]
== END 2017-07-19 20:11 | disposition home or self-care (01) ==
LOC: ERS 15:44
DX: J44.0 Chronic obstructive pulmonary disease with (acute) lower respiratory infection (principal); J20.9 Acute bronchitis, unspecified; F41.9 Anxiety disorder, unspecified; I11.0 Hypertensive heart disease with heart failure; I50.9 Heart failure, unspecified; F32.9 Major depressive disorder, single episode, unspecified; F17.210 Nicotine dependence, cigarettes, uncomplicated; Z71.6 Tobacco abuse counseling
CPT/HCPCS: 36416; 71045; 80053; 82553; 83690; 83880; 84484; 85025; 93005; 94640; 94760; 96374; 99406; J2930; J7620

== ENCOUNTER 2017-07-20 16:14 | Observation (INO) | payer MEDICARE, MEDICAID ==
[2017-07-20 16:59] LABS: #Lymphocytes 2.1 thou/uL (1.20-3.40); #Neutrophils 5.7 thou/uL (1.40-6.50); %Basophils 0.5 % (0.0-1.0); %Eosinophils 0.2 % (0.0-10.0); %Lymphocytes 23.6 % (21.0-51.0); %Monocytes 11.1 % (0.0-10.0); %Neutrophils 64.7 % (42.0-75.0); Hemoglobin 11.4 g/dL (14.0-18.0); Mean Corpuscular HGB CONC 32.8 g/dL (32.0-36.0); Mean Corpuscular Hemoglobin 31.4 pg (27.0-31.0); Mean Corpuscular Volume 95.7 fl (80.0-94.0); Mean Platelet Volume 8.4 fL (7.4-10.4); Platelet Count 185 thou/uL (130-400); RBC Distribution Width 12.7 % (11.5-14.5); Red Blood Cell (RBC) Count 3.63 mill/uL (4.70-6.10); White Blood Cell (WBC) Count 8.8 thou/uL (4.8-10.8)
[2017-07-20] MEDS ORDERED: methylPREDNISolone Sod Succ/PF 125 MG/2 ML VIAL ONE (16:59)
[2017-07-20 17:15] LABS: CKMB 1.9 ng/mL (0-6.6); Troponin I Less than 0.010 ng/mL (< 0.028)
[2017-07-20 17:53] LABS: ALT (SGPT) 31 U/L (8-55); AST (SGOT) 67 U/L (5-34); Albumin 4.1 g/dL (3.5-5.0); Alkaline Phosphatase 86 U/L (40-150); Anion Gap 16 mmol/L (10-20); BUN (Urea Nitrogen) 8 mg/dL (8.4-25.7); Bilirubin, Total 0.3 mg/dL (0.2-1.2); CK (CPK) 148 U/L (30-200); Calc. Creatinine Clearance 0 mL/min (70-130); Calcium 9.3 mg/dL (7.8-10.44); Carbon Dioxide 23 mmol/L (22-29); Chloride 104 mmol/L (98-107); Estimated GFR-MDRD Greater than 90; Globulin 3.2 g/dL (2.4-3.5); Glucose 90 mg/dL (70-105); Potassium 4.6 mmol/L (3.5-5.1); Protein, Total 7.3 g/dL (6.0-8.3); Sodium 138 mmol/L (136-145)
[2017-07-20] MEDS ORDERED: cefTRIAXone\\ROCEPHIN 2 GM in Sodium Chloride 0.9% 100 ML IVPB ONE (18:00)
--- NOTE | 2017-07-20 18:21 | RAD ---
CHEST ONE VIEW 07/20/17 HISTORY: Emergency exam. Shortness of breath. COMPARISON: Chest radiograph prior day. FINDINGS: There is a small right basilar air space opacity. There is mild blunting of the right lateral costoph renic sulcus. No pneumothorax. Old rib fractures. IMPRESSION: Subtle right lower lobe air space opacity concerning for infection. Followup recommended. POS: [facility]
[2017-07-20] MEDS ORDERED: Azithromycin 500 MG VIAL ONE (18:24)
--- NOTE | 2017-07-20 20:39 | PDOC.FPRHP ---
- History of Present Illness Chief Complaint: Cough and SOB History of Present Illness: 61 yo M with hx of COPD presents to the ED for the 3rd time in 3 days for progressively worsening SOB and cough. During the previous visits pt was treated for mild COPD exacerbation as outpatient. He received IV methylpred and was sent home with 50 of oral pred yesterday. Previous to today pt had no supplemental oxygen demand, however per ER today he dropped to 86 on RA. He has since been in the low 90s after duoneb. The patient states that his cough and worsening SOB started about 5 days ago. He states that nothing makes the coughing better or worse. He complains of associated fever/chills and n/v for the same period of time. Further ROS finds complaint of watery diarrhea for months. Pt states that he is homeless and does not see a doctor regularly, though has been written for an inhaler for COPD in the past. - Allergies/Adverse Reactions Allergies Allergy/AdvReac Type Severity Reaction Status Date / Time No Known Drug Allergies Allergy Verified 07/20/17 20:26 - Home Medications Medication Instructions Recorded Confirmed Type Cyanocobalamin (Vitamin B-12) 1,000 mcg PO DAILY #30 tab 11/16/16 03/19/17 Rx [Vitamin B-12] Citalopram [CeleXA] 20 mg PO DAILY #30 tab 01/01/17 03/19/17 Rx Folic Acid [Folvite] 1 mg PO DAILY #30 tab 01/01/17 03/19/17 Rx Lisinopril [Zestril] 2.5 mg PO DAILY #30 tab 01/01/17 03/19/17 Rx Metoprolol Tartrate [Lopressor] 25 mg PO BID #30 tab 01/01/17 03/19/17 Rx QUEtiapine Fumarate [SEROquel] 100 mg PO DAILY #30 tab 01/01/17 03/19/17 Rx predniSONE [Prednisone] 5 mg PO DAILY 03/19/17 03/19/17 History Benzonatate [Tessalon] 100 mg PO Q4H PRN #30 cap 03/20/17 Rx Famotidine [Pepcid] 20 mg PO BID #60 tab 03/20/17 Rx Levofloxacin [Levaquin] 500 mg PO DAILY #7 tab 03/20/17 Rx Mometasone/Formoterol 200/5 2 puff INH BID #1 inhaler 03/20/17 Rx [Dulera 200 Mcg/5 Mcg Inhaler] Ventolin HFA Inhaler [Ventolin HFA 2 puff INH Q4HR PRN #1 inh 03/20/17 Rx Inhaler] guaiFENesin ER [Mucinex] 600 mg PO Q12HR #14 tab 03/20/17 Rx predniSONE 20 mg PO QAM-WM #30 tab 03/20/17 Rx Comments: Pt does not know what meds he is supposed to be on. He has taken no medication for some time. - History PMHx: COPD HTN Hep C, untreated R avascular necrosis of talus PSHx: Unknown surgery on R talus for avascular necrosis FHx: Social: Smokes 4 cigars daily for 20 years Drinks at least 2 16oz beers per day Denies recreational drugs - Review of Systems ROS unobtainable: other (Unreliable dt etoh intoxication) General: reports: fever/chills Eyes: denies: eye pain, vision changes ENT: denies: nasal congestion, rhinorrhea Respiratory: reports: cough, shortness of breath Cardiovascular: reports: chest pain (Right side with cough). denies: palpitation, edema Gastrointestinal: reports: nausea, diarrhea (watery in nature for multiple months duration). denies: vomiting Genitourinary: denies: incontinence Skin: denies: rashes, lesions Musculoskeletal: denies: pain, tenderness Neurological: denies: numbness, syncope Psychological: denies: anxiety, depression - Vital signs BP: 144/88 HR: 88 RR: 20 Tmax: 98.0 Pox: 94% on 3L Wt: 61.3 kg - Physical Exam Constitutional: NAD, awake, alert and oriented HEENT: normocephalic and atraumatic, PERRLA, EOMI, conjunctiva clear, no scleral icterus Neck: supple, FROM Chest: no-tender to palpation, no lesions Heart: RRR, normal S1/S2, no murmurs/rubs/gallops, no edema Lungs: good air movement, no rales/rhonchi -Lungs: Wheezing in both lung bases. Abdomen: soft, non-tender, bowel sounds present Musculoskeletal: normal structure, normal tone Neurological: no focal deficit, CN II-XII intact Skin: no rash/lesions, good turgor Heme/Lymphatic: no unusual bruising or bleeding -Psychiatric: Difficult to ascertain given patient's intoxication FMR H&P: Results - Labs Result Diagrams: 07/20/17 16:39 07/20/17 16:39 Lab results: WBC 8.8 thou/uL (4.8-10.8) 07/20/17 16:39 Hgb 11.4 g/dL (14.0-18.0) L 07/20/17 16:39 Hct 34.7 % (42.0-52.0) L 07/20/17 16:39 MCV 95.7 fl (80.0-94.0) H 07/20/17 16:39 Plt Count 185 thou/uL (130-400) 07/20/17 16:39 Neutrophils % 64.7 % (42.0-75.0) 07/20/17 16:39 Sodium 138 mmol/L (136-145) 07/20/17 16:39 Potassium 4.6 mmol/L (3.5-5.1) 07/20/17 16:39 Chloride 104 mmol/L (98-107) 07/20/17 16:39 Carbon Dioxide 23 mmol/L (22-29) 07/20/17 16:39 BUN 8 mg/dL (8.4-25.7) L 07/20/17 16:39 Creatinine 0.86 mg/dL (0.6-1.3) 07/20/17 16:39 Glucose 90 mg/dL (70-105) 07/20/17 16:39 Calcium 9.3 mg/dL (7.8-10.44) 07/20/17 16:39 Total Bilirubin 0.3 mg/dL (0.2-1.2) 07/20/17 16:39 AST 67 U/L (5-34) H 07/20/17 16:39 ALT 31 U/L (8-55) 07/20/17 16:39 Alkaline Phosphatase 86 U/L (40-150) 07/20/17 16:39 Creatine Kinase 148 U/L (30-200) 07/20/17 16:39 CK-MB (CK-2) 1.9 ng/mL (0-6.6) 07/20/17 16:39 B-Natriuretic Peptide 43.7 pg/mL (0-100) 07/20/17 16:39 Serum Total Protein 7.3 g/dL (6.0-8.3) 07/20/17 16:39 Albumin 4.1 g/dL (3.5-5.0) 07/20/17 16:39 - Radiology Interpretation Chest x-ray Status: report reviewed by me Additional comment: R basilar opacity concerning for early PNA. FMR H&P: A/P - Problem List (1) COPD exacerbation Current Visit: Yes Status: Acute Priority: High Code(s): J44.1 - CHRONIC OBSTRUCTIVE PULMONARY DISEASE W (ACUTE) EXACERBATION (2) Community acquired pneumonia Current Visit: Yes Status: Acute Priority: High Code(s): J18.9 - PNEUMONIA , UNSPECIFIED ORGANISM Qualifiers: Laterality: right Lung location: lower lobe of lung Qualified Code(s): J18.1 - Lobar pneumonia, unspecified organism (3) Acute alcohol intoxication Current Visit: Yes Status: Acute Priority: Medium Code(s): F10.929 - ALCOHOL USE, UNSPECIFIED WITH INTOXICATION, UNSPECIFIED Qualifiers: Complication of substance-induced condition: uncomplicated Qualified Code(s ): F10.929 - Alcohol use, unspecified with intoxication, unspecified (4) Diarrhea Current Visit: Yes Status: Chronic Priority: Medium Code(s): R19.7 - DIARRHEA, UNSPECIFIED Qualifiers: Diarrhea type: unspecified type Qualified Code(s): R19.7 - Diarrhea, unspecified (5) Abnormal LFTs Current Visit: Yes Status: Chronic Priority: Medium Code(s): R79.89 - OTHER SPECIFIED ABNORMAL FINDINGS OF BLOOD CHEMISTRY (6) Alcohol abuse Current Visit: Yes Status: Chronic Priority: Medium Code(s): F10.10 - ALCOHOL ABUSE, UNCOMPLICATED (7) Hepatitis C Current Visit: Yes Status: Chronic Priority: Low Code(s): B19.20 - UNSPECIFIED VIRAL HEPATITIS C WITHOUT HEPATIC COMA Qualifiers: Viral hepatitis chronicity: unspecified Hepatic coma status: without hepatic coma Qualified Code(s): B19.20 - Unspecified viral hepatitis C without hepatic coma (8) Hypertension Current Visit: Yes Status: Chronic Priority: Medium Code(s): I10 - ESSENTIAL (PRIMARY) HYPERTENSION Qualifiers: Hypertension type: unspecified Qualified Code(s): I10 - Essential (primary ) hypertension (9) Tobacco abuse Current Visit: Yes Status: Chronic Priority: Low Code(s): Z72.0 - TOBACCO USE (10) Macrocytic anemia Current Visit: Yes Status: Chronic Priority: Low Code(s): D53.9 - NUTRITIONAL ANEMIA, UNSPECIFIED - Plan COPD exacerbation -In the ED patient had O2 sat in the low 90s after duoneb on RA -Continue scheduled nebs and PO prednisone -Pt getting abx for possible PNA -Continuous O2 sat monitoring. Supplemental O2 PRN Pneumonia -Continue azithro and rocephin from ED -Continuous O2 monitoring as above Chronic diarrhea -pt appears to be euvolemic -will order stool studies to r/o infectious cause HTN -there are some previously documented meds, however it is unclear the last time the patient has taken them -will restart KORY-I Macrocytic anemia -chronic and stable -most likely secondary to etoh abuse -will order B12 and folate Alcohol intoxication -ASE protocol -this is the most likely cause of mild AST elevation History of Hep C -Per patient this has never been treated -Will refer to HFA for outpatient followup DVT PPx -SCD and lovenox Diet: regular Activity: Ad jim Disposition/LOS: Pt is stable. Will admit for Obs due to progressively worsening SOB. Pt will likely dc in the next 24-48 hours FMR H&P: Upper Level - Pertinent history 61yo AAM with PMHx of COPD, Hep C, alcohol abuse, HTN, chronic pain who presents with worsening shortness of breath. Endorses 2wk hx of difficulty breathing and productive cough with greenish sputum. Pt presented to ED yesterday with similar presentation and given steroids and duoneb and discharged home with rx for PO steroids and Proventil. States never got rxs filled and shortness of breath and wheezing has worsened. He has been out of all of his medications for the past week. Not able to provide med list. Denies any fevers, chest pain, N/V. Endorses chills but that he is always cold. Currently living with family but says when he wants to be by himself he goes to [employer]. - Pertinent findings Gen: cantankerous gentleman, NAD HEENT: PERRLA Heart: S1 S2, RRR Lungs: expiratory wheezing Abd: soft, nt/nd/bs+ Ext: no cyanosis or edema - Plan Date/Time: 07/20/172028 I, Helen Lennon, have evaluated this patient and agree with findings/ plan as outlined by geotechnical intern resident. Pertinent changes/additions are listed here. 1. COPD exacerbation: Place on obs to medical. Given solumedrol, duo neb, rocephin and azithromycin in the ED. Cont duo nebs, PO steroids and add mucinex. Cont abx regimen. 2. RLL CAP: CXR showing a subtle RLL opacity concerning for infection. Questionable PNA diagnosis but regardless abx regimen for COPD will provide coverage. 3. Alcohol abuse: Reports drinking 2-3 16oz beers/day. Current alcohol level of 343. States last drink was sometime today. Monitor for withdrawals. 4. Macrocytic Anemia: likely 2/2 #3. Obtain RBC folate and B12. 5. Hep C: not treated. 6. HTN: Does not know what meds he is taking. BP stable currently. Monitor. 7. PPx: SCDs 8. Diet: regular 9. Code Status: Full Attending Addendum - Attending Addendum Date/Time: 07/20/17 3145 I personally evaluated the patient and discussed the management with Dr. Gilbert I agree with the History, Examination, Assessment and Plan documented above with any addition or exceptions noted below- Briefly this is a 61 year old BM with h/o COPD, HTN, alcohol abuse, Hepatitis C and avascular necrosis of tallus presents c/o SOB and cough for last 5 days. Seen in ER yesterday and treated for COPD exacerbation with steroids and nebs. Discharged with rx for steroids and inhaler. Patient states that his symptoms continue and worsened. Cough productive of greenish sputum. Subjective fever and chills. PMH/PSH/All/Meds/ SH /ROS reviewed and agree with resident's documentation. Afebrile VSS. Physical exam repeated by me and agree with resident's documentation. Labs WBC 8.8 Hgb 11.3. CXR- subtle right basilar opacity not seen on prior film. A/P: 1) COPD exacerbation- continue nebs, O2, steroids. Wean O2 as tolerated. 2) Possible early CAP- continue IV antibiotics, 3) HTN- continue to monitor and treat accordingly, 4) Alchol abuse- YI currently 340- monitor for withdrawal/DTs.
[2017-07-20 21:15] VITALS: BMI 18.0
[2017-07-20] MEDS ORDERED: Thiamine HCl 200 MG/2 ML VIAL IM SCH (22:45)
[2017-07-20 23:37] LABS: Folate (Folic Acid) 6.3 ng/mL (7.0-31.4)
[2017-07-21 04:55] LABS: #Lymphocytes 0.6 thou/uL (1.20-3.40); #Monocytes 0.2 thou/uL (0.11-0.59); #Neutrophils 5.2 thou/uL (1.40-6.50); %Eosinophils 0.2 % (0.0-10.0); %Lymphocytes 9.6 % (21.0-51.0); %Monocytes 2.8 % (0.0-10.0); %Neutrophils 87.4 % (42.0-75.0); Hemoglobin 11.8 g/dL (14.0-18.0); Mean Corpuscular HGB CONC 31.7 g/dL (32.0-36.0); Mean Corpuscular Hemoglobin 31.2 pg (27.0-31.0); Mean Corpuscular Volume 98.3 fl (80.0-94.0); Mean Platelet Volume 8.4 fL (7.4-10.4); Platelet Count 186 thou/uL (130-400); RBC Distribution Width 12.8 % (11.5-14.5)
[2017-07-21 05:00] LABS: Anion Gap 15 mmol/L (10-20); BUN (Urea Nitrogen) 10 mg/dL (8.4-25.7); Calc. Creatinine Clearance 75 mL/min (70-130); Calcium 9.4 mg/dL (7.8-10.44); Carbon Dioxide 26 mmol/L (22-29); Chloride 103 mmol/L (98-107); Estimated GFR-MDRD Greater than 90; Glucose 115 mg/dL (70-105); Potassium 4.3 mmol/L (3.5-5.1); Sodium 140 mmol/L (136-145)
[2017-07-21] MEDS: Acetaminophen 325 MG TAB PO PRN ×2 (05:25→12:36)
[2017-07-21] MEDS: Guaifenesin DM 100-10/5 ML UDCUP PO PRN ×2 (05:26→15:35)
[2017-07-21] MEDS ORDERED: Mometasone/Formoterol 120 PUFF INHALER INH SCH (06:30)
[2017-07-21] MEDS ORDERED: Enoxaparin Sodium 40 MG/0.4 ML SYRINGE SC SCH (09:00)
[2017-07-21] MEDS ORDERED: predniSONE 20 MG TAB PO SCH (09:00)
[2017-07-21] MEDS ORDERED: Lisinopril 2.5 MG TAB PO SCH (09:00)
[2017-07-21] MEDS ORDERED: Multivitamin W/ Minerals 1 TAB PO SCH (09:00)
[2017-07-21] MEDS ORDERED: Azithromycin 250 MG TAB PO SCH (09:00)
[2017-07-21] MEDS ORDERED: Folic Acid 1 MG TAB PO SCH (09:00)
[2017-07-21] MEDS ORDERED: Magnesium Oxide 400 MG TAB PO SCH (09:00)
--- NOTE | 2017-07-21 09:18 | PDOC.FM ---
- Subjective Subjective: Patient reports that he is feeling a little better this AM. He reports that he had been feeling feverish and having chills prior to admission, but did not have any F/C last night. He reports that his SOB has improved a little, but it is always worse in the AM. He reports that his cough is still just as bad and is productive of greenish sputum. Denies chest pain. - Objective MAR Reviewed: Yes Vital Signs & Weight: Vital Signs (12 hours) Temp Pulse Resp BP BP Pulse Ox 07/21/17 09:08 85 07/21/17 07:23 98.7 F 85 16 07/21/17 07:12 98.2 F 97 20 129/83 93 L 07/21/17 06:51 85 16 96 07/21/17 06:50 85 16 96 07/21/17 04:01 98.7 F 89 18 121/73 95 07/21/17 02:38 106 H 16 97 07/20/17 23:37 86 16 104/63 93 L 07/20/17 22:47 135/83 07/20/17 22:03 100 16 92 L Weight Admit Weight 52.254 kg Weight 52.254 kg I&O: 07/20/17 07/21/17 07/22/17 06:59 06:59 06:59 Intake Total 1570 Output Total 625 Balance 945 Result Diagrams: 07/21/17 04:12 07/21/17 04:12 <Honey Thornton - Last Filed: 07/21/17 12:44> - Objective Vital Signs & Weight: Vital Signs (12 hours) Temp Pulse Resp BP Pulse Ox 07/21/17 16:07 98.7 F 79 18 134/80 93 L 07/21/17 15:34 94 L 07/21/17 14:18 83 16 97 07/21/17 14:15 94 L 07/21/17 13:40 95 07/21/17 11:09 98.8 F 89 16 140/81 94 L 07/21/17 10:40 102 H 18 97 07/21/17 09:08 85 07/21/17 07:23 98.7 F 85 16 07/21/17 07:12 98.2 F 97 20 129/83 93 L 07/21/17 06:51 85 16 96 03/07/18 06:50 85 16 96 Weight Admit Weight 52.254 kg Weight 52.254 kg I&O: 07/20/17 07/21/17 07/22/17 06:59 06:59 06:59 Intake Total 1570 Output Total 625 Balance 945 Result Diagrams: 07/21/17 04:12 07/21/17 04:12 <Hermes Puckett - Last Filed: 07/21/17 17:15> Phys Exam - Physical Examination Constitutional: NAD HEENT: moist MMs Respiratory: no wheezing, no rales, no rhonchi, clear to auscultation bilateral Cardiovascular: RRR, no significant murmur, no rub Gastrointestinal: soft, non-tender, no distention, positive bowel sounds Musculoskeletal: no edema, pulses present Neurological: non-focal, moves all 4 limbs Psychiatric: normal affect, A&O x 3 Skin: normal turgor, cap refill <2 seconds <Honey Thornton - Last Filed: 07/21/17 12:44> Dx/Plan (1) COPD exacerbation Code(s): J44.1 - CHRONIC OBSTRUCTIVE PULMONARY DISEASE W (ACUTE) EXACERBATION Status: Acute (2) Community acquired pneumonia Code(s): J18.9 - PNEUMONIA, UNSPECIFIED ORGANISM Status: Acute QualifierTitle: Laterality: right Lung location: lower lobe of lung Qualified Code(s): J18.1 - Lobar pneumonia, unspecified organism (3) Acute alcohol intoxication Code(s): F10.929 - ALCOHOL USE, UNSPECIFIED WITH INTOXICATION, UNSPECIFIED Status: Acute QualifierTitle: Complication of substance-induced condition: uncomplicated Qualified Code(s): F10.929 - Alcohol use, unspecified with intoxication, unspecified (4) Alcohol abuse Code(s): F10.10 - ALCOHOL ABUSE, UNCOMPLICATED Status: Chronic (5) Diarrhea Code(s): R19.7 - DIARRHEA, UNSPECIFIED Status: Chronic QualifierTitle: Diarrhea type: unspecified type Qualified Code(s): R19.7 - Diarrhea, unspecified (6) Hepatitis C Code(s): B19.20 - UNSPECIFIED VIRAL HEPATITIS C WITHOUT HEPATIC COMA Status: Chronic QualifierTitle: Viral hepatitis chronicity: unspecified Hepatic coma status: without hepatic coma Qualified Code(s): B19.20 - Unspecified viral hepatitis C without hepatic coma (7) Hypertension Code(s): I10 - ESSENTIAL (PRIMARY) HYPERTENSION Status: Chronic QualifierTitle: Hypertension type: unspecified Qualified Code(s): I10 - Essential (primary) hypertension (8) Macrocytic anemia Code(s): D53.9 - NUTRITIONAL ANEMIA, UNSPECIFIED Status: Chronic (9) Protein-calorie malnutrition, moderate Code(s): E44.0 - MODERATE PROTEIN-CALORIE MALNUTRITION Status: Chronic (10) Acute respiratory failure with hypoxia Code(s): J96.01 - ACUTE RESPIRATORY FAILURE WITH HYPOXIA Status: Acute - Plan Plan: Acute Hypoxic Respiratory Failure 2/2 COPD exacerbation The patient was satting in the mid-80's on RA and improved to the low 90s after duoneb on RA in the ED intially. He has had worsened sputum production, cough, and SOB over the past few days. -Continue scheduled nebs and PO prednisone -Pt getting abx for possible PNA -Continuous O2 sat monitoring. Supplemental O2 PRN. Goal O2 of 92% Community Acquired Pneumonia CXR concerning for RLL opacity -Azithromycin day 2, Rocephin day 2 -Continuous O2 monitoring as above -Urine legionella and urine strep pneumo antigens Chronic diarrhea pt appears to be euvolemic, this is likely 2/2 alcoholism -will order stool studies to r/o infectious cause HTN there are some previously documented meds, however it is unclear the last time the patient has taken them -will restart KORY-I Macrocytic anemia Chronic and stable -most likely secondary to etoh abuse -will order B12 and RBC folate Acute Alcohol intoxication EtOH level 343 since admission -ASE protocol, ASE scores 3 since admission -this is the most likely cause of mild AST elevation History of Hep C Per patient this has never been treated -Will refer to HFA for outpatient follow-up <Honey Thornton - Last Filed: 07/21/17 12:44> Attending Addendum - Attending Addendum Date/Time: 07/21/17 2653 I personally evaluated the patient and discussed the management with Dr. Thornton. I agree with the History, Examination, Assessment and Plan documented above with any addition or exceptions noted below. <Hermes Puckett - Last Filed: 07/21/17 17:15>
[2017-07-21 11:15] LABS: Legionella Urinary Ag Negative (Negative); Strep pneumo Urine Ag NEGATIVE (NEGATIVE)
[2017-07-21 16:08] VITALS: BP 134/80; TEMP 98.7
[2017-07-21] MEDS ORDERED: cefTRIAXone\\ROCEPHIN 1 GM in Sodium Chloride 0.9% 100 ML IVPB SCH (20:00)
[2017-07-21] MEDS ORDERED: Cefdinir 300 MG CAP PO SCH (21:00)
[2017-07-22 12:17] LABS: Folate,Hemolysate 507.9 ng/mL (Not Estab.); Hematocrit 35.1 % (37.5-51.0); RBC Folate Test Component 1447 ng/mL (>498)
--- NOTE | 2017-07-23 06:19 | DIS-2 ---
DATE OF ADMISSION: 07/20/2017 DATE OF DISCHARGE: 07/21/2017 ADMITTING RESIDENT: Bang Gilbert DO DISCHARGE RESIDENT: Honey Thornton MD ADMITTING ATTENDING: Mallory Cantu M.D. DISCHARGE ATTENDING: Hermes Puckett M.D. CONSULTATIONS: None. PROCEDURES: None. PRIMARY DIAGNOSES: 1. Acute hypoxic respiratory failure secondary to chronic obstructive pulmonary disease exacerbation . 2. Community-acquired pneumonia. 3. Acute alcohol intoxication. SECONDARY DIAGNOSES: 1. Chronic diarrhea. 2. Hypertension. 3. Macrocytic anemia. 4. History of hepatitis C. DISCHARGE MEDICATIONS: 1. Azithromycin 250 mg p.o. daily, dispense #3. 2. Benzonatate 100 mg p.o. q.4 hours p.r.n. cough. 3. Omnicef 300 mg p.o. b.i.d., #7. 4. Celexa 20 mg p.o. daily. 5. Vitamin B12 of 1000 mcg p.o. daily. 6. Pepcid 20 mg p.o. b.i.d. 7. Folic acid 1 mg p.o. daily. 8. Mucinex 600 mg p.o. q.12 hours. 9. Lisinopril 2.5 mg p.o. daily. 10. Metoprolol 25 mg p.o. b.i.d. 11. Multivitamin 1 tab p.o. daily. 12. Prednisone 40 mg p.o. daily, dispense #3. 13. Seroquel 100 mg p.o. daily. 14. Spiriva Respimat 2 puffs inhaled daily. 15. Ventolin HFA inhaler 2 puffs inhaled q.4 hours p.r.n. shortness of breath or wheezing. 16. Dulera 200 mcg/5 mcg inhaler 2 puffs inhaled b.i.d. if the patient cannot afford the Spiriva. DISCONTINUED MEDICATIONS: None. HISTORY OF PRESENT ILLNESS AND HOSPITAL COURSE: This is a 61-year-old male with a past history of al cohol abuse, COPD, who presented to the ED because he had persistent cough productive with worsen spu vanessa production as well as fever. He had been seen in the emergency room for the past few days prior and treated for COPD exacerbation by the ER; however, at this time, his chest x-ray was concerning fo r subtle right lower lobe airspace opacity concerning for infection and he initially was hypoxic to 8 6% on room air, and so the patient was hospitalized. He was initially put on oxygen, given DuoNebs, and started initially on Solu-Medrol and switched to prednisone and started on Rocephin and azithromy trista. The patient did not have an elevated white blood cell count and his urine Strep pneumo and Legi onella came back negative. The patient was able to be weaned off oxygen by the afternoon of 07/23/19 18 and he was doing well with the DuoNebs and receiving oral steroids. The patient was switched to a zithromycin and cefdinir for antibiotics. The patient initially came in with a blood alcohol level o f 343 by the afternoon of , which downtrended to less than 10. The patient's blood cultures grew out no growth at 48 hours, and the patient was discharged home with 3 more days of antibiotics and pr ednisone, and the patient was also discharged home with a prescription for Spiriva. DISPOSITION: Stable. DISCHARGE INSTRUCTIONS: 1. Location: Home. 2. Diet: Heart healthy. 3. Activity: As tolerated. 4. Follow up with PCP within 1 week.
--- NOTE | 2017-07-31 14:23 | EKG ---
Test Reason : Blood Pressure : / mmHG Vent. Rate : 094 BPM Atrial Rate : 094 BPM P-R Int : 148 ms QRS Dur : 082 ms QT Int : 352 ms P-R-T Axes : 083 056 065 degrees QTc Int : 440 ms Normal sinus rhythm Cannot rule out Anterior infarct , age undetermined Abnormal ECG Confirmed by ALEKSANDER MICHELLE M.D. ([id number]), news assignment editor FIDELINA CHANEY ([id number]) on 07/31/2017 2:21:45 PM Referred By: Confirmed By:ALEKSANDER MICHELLE M.D.
== END 2017-07-21 16:40 | disposition home or self-care (01) ==
LOC: ERS 16:14 → 2SW 18:54
PROVIDERS: ADMIT Family Medicine; ATTEND Family Medicine
DX: J44.1 Chronic obstructive pulmonary disease with (acute) exacerbation (principal); J96.01 Acute respiratory failure with hypoxia; J18.9 Pneumonia, unspecified organism; F10.129 Alcohol abuse with intoxication, unspecified; K52.9 Noninfective gastroenteritis and colitis, unspecified; I10 Essential (primary) hypertension; D53.9 Nutritional anemia, unspecified; B19.20 Unspecified viral hepatitis C without hepatic coma; F17.210 Nicotine dependence, cigarettes, uncomplicated; G89.29 Other chronic pain; E44.0 Moderate protein-calorie malnutrition; Z68.1 Body mass index [BMI] 19.9 or less, adult; Z79.51 Long term (current) use of inhaled steroids; Z79.899 Other long term (current) drug therapy
CPT/HCPCS: 71045; 80048; 80053; 80307 ×2; 82274; 82550; 82553; 82607 ×2; 82746; 82747; 83630; 83880; 84484; 85014; 85025 ×2; 87040; 87328; 87329; 87899 ×2; 93005; 94640 ×3; 96365; 96366; 96367 ×2; 96372 ×2; 96375; 99285; G0378; 36415; J0456; J0696; J1650; J2930; J3411; J3475; J7050; J7506; J7620

== ENCOUNTER 2017-07-23 19:30 | Emergency (ER) | payer MEDICARE ==
--- NOTE | 2017-07-23 20:44 | RAD ---
PA AND LATERAL VIEWS CHEST: 07/23/17 HISTORY: Dyspnea. FINDINGS/IMPRESSION: Comparison is made with exam of 07/20/17. The heart size is normal. The aorta is tortuous. The lungs are expanded with continued mild blunting of the right costophrenic angle. This is likely due to a small pleural effusion. No lobar consolidati on or pneumothoraces are identified. POS: [facility]
== END 2017-07-23 21:13 | disposition home or self-care (01) ==
LOC: ERS 19:30
DX: J40 Bronchitis, not specified as acute or chronic (principal); J44.9 Chronic obstructive pulmonary disease, unspecified; I11.0 Hypertensive heart disease with heart failure; I50.9 Heart failure, unspecified; F41.9 Anxiety disorder, unspecified; F32.9 Major depressive disorder, single episode, unspecified; F17.290 Nicotine dependence, other tobacco product, uncomplicated; F17.210 Nicotine dependence, cigarettes, uncomplicated
CPT/HCPCS: 71046; 93005

== ENCOUNTER 2017-07-30 16:18 | Emergency (ER) | payer MEDICARE ==
[2017-07-30 16:51] LABS: Hemoglobin 12.9 g/dL (14.0-18.0); Mean Corpuscular HGB CONC 33.5 g/dL (32.0-36.0); Mean Corpuscular Hemoglobin 32.3 pg (27.0-31.0); Mean Corpuscular Volume 96.3 fl (80.0-94.0); Platelet Count 173 thou/uL (130-400); RBC Distribution Width 13.4 % (11.5-14.5); Red Blood Cell (RBC) Count 3.99 mill/uL (4.70-6.10); White Blood Cell (WBC) Count 6.2 thou/uL (4.8-10.8)
[2017-07-30 16:56] LABS: PTT 25.7 SEC (22.9-36.1); Prothrombin Time 12.7 SEC (12.0-14.7)
[2017-07-30 17:09] LABS: ALT (SGPT) 40 U/L (8-55); AST (SGOT) 68 U/L (5-34); Albumin 4.1 g/dL (3.5-5.0); Alkaline Phosphatase 80 U/L (40-150); Anion Gap 18 mmol/L (10-20); BUN (Urea Nitrogen) 14 mg/dL (8.4-25.7); Bilirubin, Total 0.6 mg/dL (0.2-1.2); CK (CPK) 98 U/L (30-200); CKMB 1.5 ng/mL (0-6.6); Calc. Creatinine Clearance 0 mL/min (70-130); Carbon Dioxide 21 mmol/L (22-29); Chloride 100 mmol/L (98-107); Estimated GFR-MDRD 86; Globulin 2.7 g/dL (2.4-3.5); Glucose 93 mg/dL (70-105); Lipase 25 U/L (8-78); Potassium 3.5 mmol/L (3.5-5.1); Protein, Total 6.8 g/dL (6.0-8.3); Sodium 135 mmol/L (136-145); Troponin I Less than 0.010 ng/mL (< 0.028)
[2017-07-30 17:13] LABS: Band 1 % (5-11); Lymphocytes 57 % (21-51); MDiff Complete? YES; Monocytes 10 % (0-10); Neutrophil 32 % (42-75); PLT Morphology Comment Appears Adequate
--- NOTE | 2017-07-30 17:13 | RAD ---
CHEST ONE VIEW: 07/30/17 HISTORY: 61-year-old male with history of dyspnea and COPD exacerbation. COMPARISON: 07/20/17. There is some bilateral upper lung zone hyperinflation, worse on the left side. Heart size is within normal limits. No confluent pneumonia, overt edema or other acute process. There are several deformed upper left ribs having the appearance of old rib fractures. IMPRESSION: Stable appearing chronic lung changes. No acute process. Bilateral stable hyperinflation changes. POS: [facility]
== END 2017-07-30 17:35 | disposition home or self-care (01) ==
LOC: ERS 16:18
DX: J44.1 Chronic obstructive pulmonary disease with (acute) exacerbation (principal); I11.0 Hypertensive heart disease with heart failure; I50.9 Heart failure, unspecified; F41.9 Anxiety disorder, unspecified; F32.9 Major depressive disorder, single episode, unspecified; F17.210 Nicotine dependence, cigarettes, uncomplicated; F17.290 Nicotine dependence, other tobacco product, uncomplicated; Z71.6 Tobacco abuse counseling
CPT/HCPCS: 36415; 71045; 80053; 82550; 82553; 83690; 83880; 84484; 85025; 85610; 85730; 93005; 99406

== ENCOUNTER 2017-08-07 15:16 | Emergency (ER) | payer MEDICARE, MEDICAID | END 2017-08-07 15:44 | disposition home or self-care (01) | LOC: ERS 15:16 | DX: J44.1 Chronic obstructive pulmonary disease with (acute) exacerbation (principal); I11.0 Hypertensive heart disease with heart failure; I50.9 Heart failure, unspecified; F41.9 Anxiety disorder, unspecified; F32.9 Major depressive disorder, single episode, unspecified; F17.290 Nicotine dependence, other tobacco product, uncomplicated; F17.210 Nicotine dependence, cigarettes, uncomplicated | CPT/HCPCS: 99284 ==

== ENCOUNTER 2017-08-07 18:56 | Emergency (ER) | payer MEDICARE, MEDICAID ==
[2017-08-07 19:58] LABS: #Lymphocytes 0.4 thou/uL (1.20-3.40); #Monocytes 0.1 thou/uL (0.11-0.59); #Neutrophils 2.2 thou/uL (1.40-6.50); %Eosinophils 0.3 % (0.0-10.0); %Lymphocytes 14.1 % (21.0-51.0); %Monocytes 2.5 % (0.0-10.0); %Neutrophils 83.1 % (42.0-75.0); Hemoglobin 12.9 g/dL (14.0-18.0); Mean Corpuscular HGB CONC 31.5 g/dL (32.0-36.0); Mean Corpuscular Hemoglobin 31.8 pg (27.0-31.0); Mean Platelet Volume 8.6 fL (7.4-10.4); Platelet Count 153 thou/uL (130-400); RBC Distribution Width 13.3 % (11.5-14.5); Red Blood Cell (RBC) Count 4.05 mill/uL (4.70-6.10); White Blood Cell (WBC) Count 2.6 thou/uL (4.8-10.8)
[2017-08-07 20:20] LABS: Troponin I Less than 0.010 ng/mL (< 0.028)
[2017-08-07 20:22] LABS: ALT (SGPT) 37 U/L (8-55); AST (SGOT) 39 U/L (5-34); Albumin 4.2 g/dL (3.4-4.8); Alkaline Phosphatase 89 U/L (40-150); Anion Gap 17 mmol/L (10-20); BUN (Urea Nitrogen) 8 mg/dL (8.4-25.7); Bilirubin, Total 0.3 mg/dL (0.2-1.2); Calc. Creatinine Clearance 0 mL/min (70-130); Calcium 9.6 mg/dL (7.8-10.44); Carbon Dioxide 21 mmol/L (23-31); Chloride 111 mmol/L (98-107); Estimated GFR-MDRD 82; Globulin 2.8 g/dL (2.4-3.5); Glucose 113 mg/dL (80-115); Potassium 3.7 mmol/L (3.5-5.1); Sodium 145 mmol/L (136-145)
--- NOTE | 2017-08-07 20:32 | RAD ---
PORTABLE AP CHEST X-RAY 08/07/17 HISTORY: Decreased oxygen saturation. COMPARISON: 07/30/17. FINDINGS: There are emphysematous changes seen in the upper lung zones bilaterally, similar to the prior study. There is minimal linear and patchy density at the left lung base which could be related to atelectas is, although pneumonitis cannot be excluded. Lungs are otherwise clear. Degenerative changes noted in the spine. IMPRESSION: 1. Minimal linear and patchy density at the left lung base which could be related to atelectasis or developing pneumonitis. Followup evaluation is recommended as clinically indicated. 2. Emphysematous changes within the lungs. POS: [facility]
--- NOTE | 2017-08-21 21:34 | EKG ---
Test Reason : Blood Pressure : / mmHG Vent. Rate : 098 BPM Atrial Rate : 098 BPM P-R Int : 152 ms QRS Dur : 066 ms QT Int : 328 ms P-R-T Axes : 084 -08 057 degrees QTc Int : 418 ms Normal sinus rhythm Normal ECG Confirmed by DELMER RIVERA M.D. ([id number]), editor publications FIDELINA CHANEY ([id number]) on 08/21/2017 9:34:32 PM Referred By: Confirmed By:DELMER RIVERA M.D.
== END 2017-08-07 21:58 | disposition home or self-care (01) ==
LOC: ERS 18:56
DX: D53.9 Nutritional anemia, unspecified (principal); D72.819 Decreased white blood cell count, unspecified; J44.9 Chronic obstructive pulmonary disease, unspecified; I11.0 Hypertensive heart disease with heart failure; I50.9 Heart failure, unspecified; F17.210 Nicotine dependence, cigarettes, uncomplicated
CPT/HCPCS: 36415; 71045; 80053; 83880; 84484; 85025; 93005; 99284

== ENCOUNTER 2017-08-14 05:20 | Inpatient (IN) | payer MEDICARE, MEDICAID ==
[2017-08-14] MEDS ORDERED: methylPREDNISolone Sod Succ/PF 125 MG/2 ML VIAL ONE (05:28)
[2017-08-14 05:55] LABS: #Eosinphils 0.1 thou/uL (0.0-0.7); #Lymphocytes 1.6 thou/uL (1.20-3.40); #Monocytes 0.5 thou/uL (0.11-0.59); #Neutrophils 2.8 thou/uL (1.40-6.50); %Basophils 0.2 % (0.0-1.0); %Eosinophils 1.4 % (0.0-10.0); %Lymphocytes 31.9 % (21.0-51.0); %Monocytes 10.7 % (0.0-10.0); %Neutrophils 55.8 % (42.0-75.0); Hemoglobin 13.5 g/dL (14.0-18.0); Mean Corpuscular HGB CONC 31.4 g/dL (32.0-36.0); Mean Corpuscular Hemoglobin 31.9 pg (27.0-31.0); Mean Platelet Volume 8.7 fL (7.4-10.4); Platelet Count 176 thou/uL (130-400); RBC Distribution Width 13.7 % (11.5-14.5); Red Blood Cell (RBC) Count 4.21 mill/uL (4.70-6.10)
[2017-08-14 06:04] LABS: Actual Bicarbonate (HCO3a) 24.4 mEq/L (22-26); Base Excess (BEa) -1.7 mEq/L (0 (+/-) 2.5); CO2 Tension 46.4 mmHg (35.0-45.0); O2 Tension (PaO2) 214.8 mmHg (80.0-100.0); pH, Arterial 7.34 (7.35-7.45)
[2017-08-14 06:05] LABS: Calcium, Ionized 1.2 mmol/L (1.12-1.30); Hematocrit-ABG 41.5 % (42.0-52.0); Hemoglobin (Hb) 13.1 g/dL (14.0-18.0)
[2017-08-14 06:06] LABS: Analyzer IN Cardio ER; Puncture Site LRA
[2017-08-14 06:10] LABS: ALT (SGPT) 47 U/L (8-55); AST (SGOT) 63 U/L (5-34); Albumin 4.4 g/dL (3.4-4.8); Alkaline Phosphatase 101 U/L (40-150); Anion Gap 14 mmol/L (10-20); BUN (Urea Nitrogen) 12 mg/dL (8.4-25.7); Bilirubin, Total 0.3 mg/dL (0.2-1.2); CK (CPK) 77 U/L (30-200); Calc. Creatinine Clearance 0 mL/min (70-130); Calcium 9.2 mg/dL (7.8-10.44); Carbon Dioxide 25 mmol/L (23-31); Chloride 108 mmol/L (98-107); Estimated GFR-MDRD Greater than 90; Globulin 3.1 g/dL (2.4-3.5); Glucose 115 mg/dL (80-115); Potassium 4.6 mmol/L (3.5-5.1); Protein, Total 7.5 g/dL (5.8-8.1); Sodium 142 mmol/L (136-145)
[2017-08-14 06:14] LABS: CKMB 2.3 ng/mL (0-6.6); Troponin I Less than 0.010 ng/mL (< 0.028)
--- NOTE | 2017-08-14 06:30 | PDOC.FPRHP ---
- History of Present Illness Chief Complaint: increase shortness of breath History of Present Illness: PCP: Bianka HPI: Arnie Aguirre is a 62 year old male with PMH of COPD, HTN, Hep C- untreated who presents to the ED today for worsened short of breath. Patient was recently treated at this hospital about one month ago for pneumonia. He states since he has been discharged he never really got better. He did not grape picker the prescriptions he was supposed to get after last admission. He states that he has progressively had worsening shortness of breath, especially when he has to walk somewhere. He came to the ED because he was struggling to travel anywhere without having to stop frequently to catch his breath. He also has associated increase sputum production. Denies fevers, chest pain. When he arrived to the ED, he was in respiratory distress and he was put on BiPAP. His respiratory distress improved. ED Course: In the ED, he was started on BiPAP and his O2 sats have since improved - Allergies/Adverse Reactions Allergies Allergy/AdvReac Type Severity Reaction Status Date / Time No Known Drug Allergies Allergy Verified 07/20/17 20:26 - Home Medications Medication Instructions Recorded Confirmed Type Cyanocobalamin (Vitamin B-12) 1,000 mcg PO DAILY #30 tab 11/16/16 03/19/17 Rx [Vitamin B-12] Citalopram [CeleXA] 20 mg PO DAILY #30 tab 01/01/17 03/19/17 Rx Folic Acid [Folvite] 1 mg PO DAILY #30 tab 01/01/17 03/19/17 Rx Lisinopril [Zestril] 2.5 mg PO DAILY #30 tab 01/01/17 03/19/17 Rx Metoprolol Tartrate [Lopressor] 25 mg PO BID #30 tab 01/01/17 03/19/17 Rx QUEtiapine Fumarate [SEROquel] 100 mg PO DAILY #30 tab 01/01/17 03/19/17 Rx Benzonatate [Tessalon] 100 mg PO Q4H PRN #30 cap 03/20/17 Rx Famotidine [Pepcid] 20 mg PO BID #60 tab 03/20/17 Rx Mometasone/Formoterol 200/5 2 puff INH BID #1 inhaler 03/20/17 Rx [Dulera 200 Mcg/5 Mcg Inhaler] Ventolin HFA Inhaler 2 puff INH Q4HR PRN #1 inh 03/20/17 Rx guaiFENesin ER [Mucinex] 600 mg PO Q12HR #14 tab 03/20/17 Rx Azithromycin [Zithromax] 250 mg PO DAILY #3 tab 07/21/17 Rx Cefdinir [Omnicef] 300 mg PO BID #7 cap 07/21/17 Rx Multivitamin W/ Minerals 1 tab PO DAILY #30 tab 07/21/17 Rx [Theragran M] Tiotropium Weikert [Spiriva 2 inh IH DAILY #1 inhaler 07/21/17 Rx Respimat] predniSONE 40 mg PO DAILY 3 Days #6 tab 07/21/17 Rx Comments: Unable to obtain reliable medication list at this time. Meds above are from previous admission medication list, not confirmed. - History PMHx: COPD, HTN, Hep C-untreated, avascular necrosis of talus PSHx: 2X hernia repair, surgery FHx: Social: - Review of Systems ROS unobtainable: other (Patient had burnette positive ROS, he said yes to every single ROS I asked him. Difficult to ascertain if he truly is positive for a complete 12 point review of systems.) - Vital signs BP: 171/119 HR: 82 RR: 25 Tmax: 98.1 Pox: 98% on BiPAP Wt: 65 kg - Physical Exam Constitutional: NAD, awake, alert and oriented, well developed HEENT: normocephalic and atraumatic, PERRLA, EOMI, conjunctiva clear, no scleral icterus, grossly normal vision, TM's clear and intact, grossly normal hearing, normal nasal mucosa, MMM, oropharynx clear Neck: supple, FROM, trachea midline, no JVD Chest: no-tender to palpation, no lesions Heart: RRR, normal S1/S2, no murmurs/rubs/gallops, pulses present -Lungs: decreased breath sounds with expiratory wheezes heard throughout all lung bay and tachypneic on BiPAP Abdomen: soft, non-tender, bowel sounds present Musculoskeletal: normal structure, normal tone, ROM grossly normal Neurological: no focal deficit, CN II-XII intact, normal sensation Skin: no rash/lesions, good turgor, capillary refill <2 seconds Heme/Lymphatic: no unusual bruising or bleeding, no purpura, no petechia Psychiatric: normal mood and affect, good judgment and insight, intact recent and remote memory FMR H&P: Results - Labs Result Diagrams: 08/14/17 05:43 08/14/17 05:43 Lab results: WBC 5.0 thou/uL (4.8-10.8) 08/14/17 05:43 Hgb 13.5 g/dL (14.0-18.0) L 08/14/17 05:43 Hct 42.8 % (42.0-52.0) 08/14/17 05:43 MCV 102.0 fl (80.0-94.0) H 08/14/17 05:43 Plt Count 176 thou/uL (130-400) 08/14/17 05:43 Neutrophils % 55.8 % (42.0-75.0) 08/14/17 05:43 ABG pH 7.34 (7.35-7.45) L 08/14/17 05:56 ABG pCO2 46.4 mmHg (35.0-45.0) H 08/14/17 05:56 ABG pO2 214.8 mmHg (80.0-100.0) H 08/14/17 05:56 Sodium 142 mmol/L (136-145) 08/14/17 05:43 Potassium 4.6 mmol/L (3.5-5.1) 08/14/17 05:43 Chloride 108 mmol/L (98-107) H 08/14/17 05:43 Carbon Dioxide 25 mmol/L (23-31) 08/14/17 05:43 BUN 12 mg/dL (8.4-25.7) 08/14/17 05:43 Creatinine 0.89 mg/dL (0.6-1.3) 08/14/17 05:43 Glucose 115 mg/dL (80-115) 08/14/17 05:43 Calcium 9.2 mg/dL (7.8-10.44) 08/14/17 05:43 Total Bilirubin 0.3 mg/dL (0.2-1.2) 08/14/17 05:43 AST 63 U/L (5-34) H 08/14/17 05:43 ALT 47 U/L (8-55) 08/14/17 05:43 Alkaline Phosphatase 101 U/L (40-150) 08/14/17 05:43 Creatine Kinase 77 U/L (30-200) 08/14/17 05:43 CK-MB (CK-2) 2.3 ng/mL (0-6.6) 08/14/17 05:43 B-Natriuretic Peptide 16.3 pg/mL (0-100) 08/14/17 05:43 Serum Total Protein 7.5 g/dL (5.8-8.1) 08/14/17 05:43 Albumin 4.4 g/dL (3.4-4.8) 08/14/17 05:43 - EKG Interpretation EKG: Normal sinus rhythm FMR H&P: A/P - Problem List (1) Acute respiratory failure with hypoxia Current Visit: No Status: Acute Code(s): J96.01 - ACUTE RESPIRATORY FAILURE WITH HYPOXIA (2) COPD exacerbation Current Visit: No Status: Acute Priority: High Code(s): J44.1 - CHRONIC OBSTRUCTIVE PULMONARY DISEASE W (ACUTE) EXACERBATION (3) Hypertension Current Visit: No Status: Chronic Priority: Medium Code(s): I10 - ESSENTIAL (PRIMARY) HYPERTENSION Qualifiers: Hypertension type: unspecified Qualified Code(s): I10 - Essential (primary ) hypertension (4) Alcohol abuse Current Visit: No Status: Chronic Priority: Medium Code(s): F10.10 - ALCOHOL ABUSE, UNCOMPLICATED (5) Macrocytic anemia Current Visit: No Status: Chronic Priority: Low Code(s): D53.9 - NUTRITIONAL ANEMIA, UNSPECIFIED - Plan (1) Acute Hypoxic Respiratory Failure: likely 2/2 COPD exacerbation. Patient is currently having good O2 sats while on BiPAP. Since he has had a rapid positive response with BiPAP, I anticipate that he will not require it for much longer. Start daily prednisone, q4h rosy duonebs, and azithromycin. Sputum cultures and GS. However, CXR only showed findings suggestive of COPD, no infiltrate. Normal WBC count, no fever. Low suspicion for pneumonia. (2) COPD Exacerbation: as above. (3) HTN: Continue home meds, continue to monitor. (4) Alcohol abuse: last drink was yesterday. Monitor for signs of withdrawal. (5) Macrocytic anemia: chronic, cont to trend Code Status: FULL CODE Disposition/LOS: Admit to IMCU, anticipated length of stay: 2-3 days. FMR H&P: Upper Level - Plan Date/Time: 08/14/17 0630 62 yr old AAM with hx of COPD and medication noncompliance who presents with c/ o SOB and unable to talk due to difficulty breathing. He was discharged from this hospital earlier this month after being treated for community acquired PNA. He states he never really recovered after being discharged and has been seen in the ER 5 times since then. He c/o increased sputum production every morning, feeling hot/cold, and cough. At first he stated he did not get any of the medications after being discharged and upon asking again, he may have. Poor historian. States last drink last night (within last 12 hours). It appears he came into the ER on bipap satting 100%. Gen: no acute distress, well developed CV: RRR, No M/F/G Lungs: CTAB no wheezing, rhales, rhonchi, no respiratory distress on bipap (02/18 ) Abd: BS normocative, NTTP A/P 1.Acute hypoxic respiratory failure 2/2 COPD exacerbation- initiate Levaquin and daily prednisone. He is significantly better and sats are good on bipap without any distress, likely can be weaned soon. Cont scheduled duonebs. 2. Alcohol abuse- last drink in less than 12 hours, monitor for withdrawals. 3.Macrocytic anemia- chronic in nature. B12 recently wnl, folate mildly low- will supplement. 4.HTN- unclear if he even takes medications because he doesnt know. Will monitor and start BP meds as needed. 5.Hep C- chronic and untreated. 6.Ppx- lovenox 7.Regular diet once off bipap. I, [Honey Taylor], have evaluated this patient and agree with findings/plan as outlined by international specialist resident. Pertinent changes/additions are listed here. Attending Addendum - Attending Addendum Date/Time: 08/14/17 [id number] I personally evaluated the patient and discussed the management with Dr. Solano/ Claudia. I agree with the History, Examination, Assessment and Plan documented above with any addition or exceptions noted below. Patient with history of med concompliance and COPD presenting with 2 days of worsening dyspnea on exertion and rest, increased sputum production, and generalized malaise. He is feeling much improved after nebs and steroids and Bipap in ER. He has already been weaned from Bipap and doing well. Will be downgraded to tele or medical floor. Will continues nebs, steroids, Azithromycin , and initiation of prescribed home meds that he is not currently taking. Obtain UDS due to acute worsening and history of polysubstance abuse.
--- NOTE | 2017-08-14 08:36 | RAD ---
CHEST 1 VIEW: HISTORY: Deformity. Trouble breathing. COMPARISON: Radiograph 08/07/17. FINDINGS: Lungs are emphysematous with upper lobe bullae. No new focal airspace consolidation, pneumothorax, o r effusion. Suture is noted of the right lower lobe. Cardiac silhouette and mediastinal contours are similar. Old left-sided rib fractures. IMPRESSION: No significant change in radiographic appearance of the chest. No evidence of pneumonia. POS: [facility]
[2017-08-14] MEDS ORDERED: Ondansetron HCl/PF 4 MG/2 ML Vial IVP PRN (08:42)
[2017-08-14] MEDS ORDERED: Acetaminophen 325 MG TAB PO PRN (08:42)
[2017-08-14] MEDS ORDERED: Ibuprofen 200 MG TAB ONE (09:00)
[2017-08-14 09:34] LABS: Troponin I 0.012 ng/mL (< 0.028)
[2017-08-14] MEDS ORDERED: Azithromycin 500 MG in Sodium Chloride 0.9% 250 ML 250 ML IVPB SCH (10:00)
[2017-08-14 13:26] LABS: Troponin I 0.011 ng/mL (< 0.028)
[2017-08-14] MEDS ORDERED: Acetaminophen 325 MG TAB ONE (13:56)
[2017-08-14 16:04] VITALS: BMI 20.2
[2017-08-14] MEDS ORDERED: Albuterol Sulfate 2.5 mg/3 ml Neb NEB PRN (16:20)
[2017-08-14] MEDS ORDERED: Furosemide 20 MG/2 ML VIAL SLOW IVP SCH (16:30)
[2017-08-14] MEDS: predniSONE 20 MG TAB PO SCH (16:48)
[2017-08-14 16:57] LABS: Amphetamine Not Detected (NotDetected); Barbiturates Screen Not Detected (NotDetected); Benzodiazepine Screen Not Detected (NotDetected); Cocaine Metabolite Screen Detected (NotDetected); Medtox Control Line Valid? VALID (VALID); Medtox Reader # READER 1; Methadone Not Detected (NotDetected); Methamphetamine Not Detected (NotDetected); Opiate Screen Not Detected (NotDetected); Oxycodone Screen Not Detected (NotDetected); Phencyclidine (PCP) Not Detected (NotDetected); THC/Cannabinoid Screen Not Detected (NotDetected); Tricyclic Screen Not Detected (NotDetected)
--- NOTE | 2017-08-14 17:39 | CON ---
DATE OF CONSULTATION: 08/14/2017 SERVICE: Pulmonary Medicine. REASON FOR CONSULTATION: Respiratory failure. HISTORY OF PRESENT ILLNESS: The patient is a 62-year-old -[place] male with past medical history significant for very advanced COPD. He also has a hard time affording any of his medications. He is continuing to smoke on a daily basis. In this setting, he was recently in the hospital at the beginning of the month. He ran out of his medication and could not afford any. As such, he developed increasing respiratory discomfort. He presented to the emergency department. He was given some nebulized medications and steroids. He was initially placed on BiPAP, but after an ABG was performed, they realized that he probably did not need it. As such, he was subsequently taken off. He was going to go to the floor, but then they decided to put him in the IMCU based on how he looks. He remains on room air. He is breathing air. He has got accessory muscle use with respirations. Denies any current chest pain, fevers or chills. He is coughing a little bit, but not bringing up anything at this time. PAST MEDICAL HISTORY: 1. COPD, advanced. 2. Chronic systolic heart failure. 3. Hypertension. 4. Hepatitis, no history of treatment. 5. History of avascular necrosis of the right talus. PAST SURGICAL HISTORY: Surgery on the right talus. FAMILY HISTORY: Noncontributory. SOCIAL HISTORY: He continues to smoke on a daily basis. He has a greater than [id number] history of smoking. He drinks 2 beers on a daily basis. Denies any recreational drug use. He has no exposure to chemicals, dust asbestos or tuberculosis. ALLERGIES: No known drug allergies. MEDICATIONS: List of his inpatient medications reviewed. Multiple small updates were made. REVIEW OF SYSTEMS: General, head, ears, eyes, nose, throat, cardiovascular, respiratory, GI, , musculoskeletal, neurologic and skin is except as stated per HPI. PHYSICAL EXAMINATION: VITAL SIGNS: Afebrile, pulse 84, blood pressure 149/96, respirations 18, saturation 100% on room air. GENERAL: The patient is awake and alert, in mild respiratory distress. He is using some accessory muscles to breathe deep. HEENT: Normocephalic, atraumatic. Sclerae are white, conjunctivae pink. Oral mucosa is moist without lesions. LUNGS: Reduced air entry. There is a prolonged expiratory phase, but the only adventitious sound I hear with careful auscultation are crackles at the bibasilar region. I really do not hear much in the way of wheezing though he is not moving much air. HEART: Normal rate and regular. ABDOMEN: Soft, nontender, and nondistended. Bowel sounds are positive. MUSCULOSKELETAL: No cyanosis or clubbing. There is trace pitting in the bilateral lower extremities. NEUROLOGIC: Grossly nonfocal. LABORATORY DATA: WBC 5.0, hemoglobin 13.5, platelets 176,000. PH 7.34, pCO2 46 , pO2 214 on 40% FiO2 at that time. Basic metabolic profile and liver function studies are unremarkable. Troponin is negative. BNP is 16.3. He has had prior urine drug screens that demonstrated cannabinoids and cocaine metabolites. ASSESSMENT: 1. Acute hypercapnic respiratory failure. 2. Chronic obstructive pulmonary disease with mild acute exacerbation. 3. Medical noncompliance. PLAN: We will provide him with BiPAP to be used as needed. This will help with his work of breathing. We will give him some steroids and nebulized medications. There is a mild COPD exacerbation and I do not think antibiotics are indicated. I will give him one dose of Lasix as he has minimal swelling in the lower extremities and some crackles on auscultation. If he remains stable from a respiratory perspective, he can be transitioned to the floor tomorrow. I will check a urine drug screen on him and provide him with albuterol on an as needed basis. Pulmonary or Critical Care will continue to follow in this location, but Dr. Luna will assume care on Wednesday. 70 minutes have been devoted to this patient in various activities. I personally reviewed all imaging studies and laboratory data noted within this document. For fifty percent of this time, I was interacting with the patient at the bedside or coordinating care with the care team. For the remainder of the time I was immediately available to the patient in the hospital unit. SUNSHINE
[2017-08-14] MEDS: Mometasone/Formoterol 120 PUFF INHALER INH SCH (18:32)
[2017-08-15] MEDS: Mometasone/Formoterol 120 PUFF INHALER INH SCH ×2 (06:27→18:26)
[2017-08-15] MEDS ORDERED: Azithromycin 250 MG TAB PO ONE (07:00)
--- NOTE | 2017-08-15 07:10 | PDOC.FM ---
- Subjective Subjective: Arnie Aguirre is a 62 year old male with PMH of COPD, HTN, Hep C- untreated that was admitted with an acute COPD exacerbation. Over night he has been on and off of Bipap dt increased work of breathing and dropping his O2 sat into the mid 80s. He complains of a productive cough with clear/white sputum. He denies chest pain. - Objective MAR Reviewed: Yes Vital Signs & Weight: Vital Signs (12 hours) Temp Pulse Resp BP Pulse Ox 08/15/17 06:27 67 22 H 08/15/17 04:05 98.7 F 72 17 119/68 100 08/15/17 04:00 97 08/15/17 00:40 64 20 96 08/15/17 00:08 98.3 F 96 18 110/79 98 08/14/17 21:03 87 08/14/17 21:02 92 21 H 100 08/14/17 20:24 98.4 F 79 19 133/79 100 08/14/17 20:15 98.4 F 92 18 Weight Weight 58.649 kg I&O: 08/14/17 08/15/17 08/16/17 06:59 06:59 06:59 Intake Total 880 Output Total 2225 Balance -1345 Result Diagrams: 08/14/17 05:43 08/14/17 05:43 <Bang Gilbert - Last Filed: 08/15/17 07:08> - Objective Vital Signs & Weight: Vital Signs (12 hours) Temp Pulse Resp BP Pulse Ox 08/15/17 08:00 98.7 F 66 19 100 08/15/17 07:37 98.7 F 66 19 117/73 93 L 08/15/17 06:27 67 22 H 08/15/17 04:05 98.7 F 72 17 119/68 100 08/15/17 04:00 97 08/15/17 00:40 64 20 96 08/15/17 00:08 98.3 F 96 18 110/79 98 Weight Weight 58.649 kg I&O: 08/14/17 08/15/17 08/16/17 06:59 06:59 06:59 Intake Total 880 Output Total 2225 Balance -1345 Result Diagrams: 08/14/17 05:43 08/14/17 05:43 <Elian Martínez - Last Filed: 08/15/17 10:36> Phys Exam - Physical Examination Currently on bipap, breathing well. Uses accessory mm when off. HEENT: moist MMs, sclera anicteric Neck: no nodes, no JVD, supple, full ROM mild wheezing at bases with good air movement, however pt on bipap Cardiovascular: RRR, no significant murmur Gastrointestinal: soft, non-tender, no distention, positive bowel sounds Musculoskeletal: no edema Neurological: non-focal Psychiatric: normal affect, A&O x 3 <Bang Gilbert - Last Filed: 08/15/17 07:08> Dx/Plan (1) Acute respiratory failure with hypoxia Code(s): J96.01 - ACUTE RESPIRATORY FAILURE WITH HYPOXIA Status: Acute (2) COPD exacerbation Code(s): J44.1 - CHRONIC OBSTRUCTIVE PULMONARY DISEASE W (ACUTE) EXACERBATION Status: Acute (3) Abnormal LFTs Code(s): R79.89 - OTHER SPECIFIED ABNORMAL FINDINGS OF BLOOD CHEMISTRY Status : Chronic (4) Hepatitis C Code(s): B19.20 - UNSPECIFIED VIRAL HEPATITIS C WITHOUT HEPATIC COMA Status: Chronic QualifierTitle: Viral hepatitis chronicity: unspecified Hepatic coma status: without hepatic coma Qualified Code(s): B19.20 - Unspecified viral hepatitis C without hepatic coma (5) Hypertension Code(s): I10 - ESSENTIAL (PRIMARY) HYPERTENSION Status: Chronic QualifierTitle: Hypertension type: unspecified Qualified Code(s): I10 - Essential (primary) hypertension (6) Macrocytic anemia Code(s): D53.9 - NUTRITIONAL ANEMIA, UNSPECIFIED Status: Chronic - Plan Plan: Acute Hypoxic Respiratory Failure: likely 2/2 COPD exacerbation. - Pt will do well for a few hours off of bipap and then start to desat and have increased work of breathing. - continue prednisone, q4h rosy duonebs, and azithromycin, prn albuterol nebs. - Attempt to wean from bipap today COPD Exacerbation: - as above. HTN: - Continue home meds, currently controlled Alcohol abuse: - last drink was 2 days ago, monitor for withdrawal signs Cocaine abuse - avoid bblockers. family counselor on cessation Macrocytic anemia: - chronic related to low folate - supplement folate <Bang Gilbert - Last Filed: 08/15/17 07:08> (1) Acute respiratory failure with hypoxia Code(s): J96.01 - ACUTE RESPIRATORY FAILURE WITH HYPOXIA Status: Acute (2) COPD exacerbation Code(s): J44.1 - CHRONIC OBSTRUCTIVE PULMONARY DISEASE W (ACUTE) EXACERBATION Status: Acute (3) Hypertension Code(s): I10 - ESSENTIAL (PRIMARY) HYPERTENSION Status: Chronic Qualifiers: Hypertension type: unspecified Qualified Code(s): I10 - Essential (primary ) hypertension (4) Alcohol abuse Code(s): F10.10 - ALCOHOL ABUSE, UNCOMPLICATED Status: Chronic (5) Macrocytic anemia Code(s): D53.9 - NUTRITIONAL ANEMIA, UNSPECIFIED Status: Chronic <Elian Martínez - Last Filed: 08/15/17 10:36> Attending Addendum - Attending Addendum Date/Time: 08/15/17 1035 I personally evaluated the patient and discussed the management with Dr. Gilbert. I agree with the History, Examination, Assessment and Plan documented above with any addition or exceptions noted below. Patient continues to require intermittent Bipap for flares in respiratory distress. Continue steroids for COPD exacerbation due to medical noncompliance. If does well without Bipap through the day, can transition to medical floor. Positive cocaine UDS, likely contributing to his exacerbation. <Elian Martínez - Last Filed: 08/15/17 10:36>
[2017-08-15] MEDS ORDERED: Folic Acid/Vit B Comp W-C PO SCH (09:00)
[2017-08-15] MEDS: Enoxaparin Sodium 40 MG/0.4 ML SYRINGE SC SCH (09:18)
[2017-08-15] MEDS: Citalopram 20 MG TAB PO SCH (09:18)
[2017-08-15] MEDS: predniSONE 20 MG TAB PO SCH (09:18)
--- NOTE | 2017-08-15 15:23 | PRG ---
DATE OF SERVICE: 08/15/2017 SERVICE: Pulmonary Medicine. INTERVAL HISTORY: The patient is doing fine from a respiratory standpoint. He denies any current ch est pain or significant shortness of breath. He is doing fine on a BiPAP. He wore it again last nig ht. This morning, he is awake and alert. He has no specific complaints. He is eating fairly well. PHYSICAL EXAMINATION: VITAL SIGNS: Afebrile, pulse 84, blood pressure 112/71, respirations 21, saturation 100% on room air . GENERAL: The patient is awake and alert, no apparent distress. LUNGS: There is reduced air entry. There is a prolonged expiratory phase. No wheezing, rhonchi, or crackles can be appreciated today. There was not moving enough air to hear adventitious sounds. HEART: Normal rate, regular. ABDOMEN: Soft, nontender, nondistended. Bowel sounds are positive. MUSCULOSKELETAL: No cyanosis or clubbing. No pitting in the bilateral lower extremities. NEUROLOGIC: Grossly nonfocal. LABORATORY DATA: Urine drug screen is positive for cocaine metabolite. Respiratory culture is growi ng multiple organisms, currently. ASSESSMENT: 1. Acute on chronic hypercapnic respiratory failure. 2. Cocaine abuse. 3. Chronic obstructive pulmonary disease with acute exacerbation, mild. 4. Medical noncompliance. PLAN: The patient is doing fine from a respiratory standpoint. At this point, we will discontinue B iPAP. He can be transitioned to the medical unit. We might consider getting him set up with noninva sive therapy in the outpatient setting. That being said, I think it would be more beneficial to the patient if he were to avoid cocaine, tobacco products moving forward. Dr. Luna will resume care in t morning.
[2017-08-15] MEDS: Famotidine 20 MG TAB PO SCH (20:30)
[2017-08-16 06:15] LABS: Anion Gap 11 mmol/L (10-20); BUN (Urea Nitrogen) 20 mg/dL (8.4-25.7); Calc. Creatinine Clearance 66 mL/min (70-130); Calcium 9.5 mg/dL (7.8-10.44); Carbon Dioxide 28 mmol/L (23-31); Chloride 104 mmol/L (98-107); Estimated GFR-MDRD Greater than 90; Glucose 73 mg/dL (80-115); Potassium 3.4 mmol/L (3.5-5.1); Sodium 140 mmol/L (136-145)
[2017-08-16 06:40] LABS: Band 1 % (5-11); Hemoglobin 12.9 g/dL (14.0-18.0); Lymphocytes 32 % (21-51); MDiff Complete? YES; Mean Corpuscular HGB CONC 31.9 g/dL (32.0-36.0); Monocytes 14 % (0-10); Neutrophil 53 % (42-75); Platelet Count 163 thou/uL (130-400); RBC Distribution Width 13.5 % (11.5-14.5); Red Blood Cell (RBC) Count 4.05 mill/uL (4.70-6.10); White Blood Cell (WBC) Count 5.7 thou/uL (4.8-10.8)
[2017-08-16] MEDS: Mometasone/Formoterol 120 PUFF INHALER INH SCH (07:13)
--- NOTE | 2017-08-16 08:14 | PDOC.FM ---
- Subjective Subjective: Arnie Aguirre is a 62 year old male with PMH of COPD, HTN, Hep C- untreated that was admitted with an acute COPD exacerbation. Pt has been off of bipap for 24 hours and O2 sat 100 on RA. Today he states that he is still periodically SOB and has continued cough. He denies chest pain, n/v, fever/ chills, feelings of anxiety, cold sweats and all other symptoms in ROS. There were no acute events over night. - Objective MAR Reviewed: Yes Vital Signs & Weight: Vital Signs (12 hours) Temp Pulse Resp BP Pulse Ox 08/16/17 08:04 98.6 F 70 16 113/73 100 08/16/17 07:49 99.0 F 80 14 100 08/16/17 07:11 80 14 100 08/16/17 04:07 99.0 F 62 18 119/69 100 08/16/17 00:38 62 12 100 08/15/17 23:56 98.0 F 82 18 105/67 100 Weight Weight 58.649 kg I&O: 08/15/17 08/16/17 08/17/17 06:59 06:59 06:59 Intake Total 880 840 Output Total 2225 1550 Balance -1345 -710 Result Diagrams: 08/16/17 03:53 08/16/17 03:53 EKG Reviewed by me: Yes <Bang Gilbert - Last Filed: 08/16/17 08:11> - Objective Vital Signs & Weight: Vital Signs (12 hours) Temp Pulse Resp BP Pulse Ox 08/16/17 08:04 98.6 F 70 16 113/73 100 08/16/17 07:49 99.0 F 80 14 100 08/16/17 07:11 80 14 100 08/16/17 04:07 99.0 F 62 18 119/69 100 08/16/17 00:38 62 12 100 08/15/17 23:56 98.0 F 82 18 105/67 100 Weight Weight 58.649 kg I&O: 08/15/17 08/16/17 08/17/17 06:59 06:59 06:59 Intake Total 880 840 240 Output Total 2225 1550 Balance -1345 710 240 Result Diagrams: 08/16/17 03:53 08/16/17 03:53 <Elian Martínez - Last Filed: 08/16/17 11:36> Phys Exam - Physical Examination Constitutional: NAD HEENT: moist MMs, sclera anicteric Neck: no JVD, supple, full ROM Respiratory: clear to auscultation bilateral Decreased air movement b/l Cardiovascular: RRR, no significant murmur Gastrointestinal: soft, non-tender, no distention, positive bowel sounds Musculoskeletal: no edema Neurological: moves all 4 limbs Psychiatric: normal affect, A&O x 3 Skin: no rash <Bang Gilbert - Last Filed: 08/16/17 08:11> Dx/Plan (1) COPD exacerbation Code(s): J44.1 - CHRONIC OBSTRUCTIVE PULMONARY DISEASE W (ACUTE) EXACERBATION Status: Acute (2) Abnormal LFTs Code(s): R79.89 - OTHER SPECIFIED ABNORMAL FINDINGS OF BLOOD CHEMISTRY Status : Chronic (3) Hepatitis C Code(s): B19.20 - UNSPECIFIED VIRAL HEPATITIS C WITHOUT HEPATIC COMA Status: Chronic QualifierTitle: Viral hepatitis chronicity: unspecified Hepatic coma status: without hepatic coma Qualified Code(s): B19.20 - Unspecified viral hepatitis C without hepatic coma (4) Hypertension Code(s): I10 - ESSENTIAL (PRIMARY) HYPERTENSION Status: Chronic QualifierTitle: Hypertension type: unspecified Qualified Code(s): I10 - Essential (primary) hypertension (5) Macrocytic anemia Code(s): D53.9 - NUTRITIONAL ANEMIA, UNSPECIFIED Status: Chronic (6) Acute respiratory failure with hypoxia Code(s): J96.01 - ACUTE RESPIRATORY FAILURE WITH HYPOXIA Status: Resolved - Plan Plan: Acute Hypoxic Respiratory Failure: likely 2/2 COPD exacerbation. - Pt will do well for a few hours off of bipap and then start to desat and have increased work of breathing. - continue prednisone, q4h rosy duonebs, and azithromycin, prn albuterol nebs. - Attempt to wean from bipap today COPD Exacerbation: - as above. HTN: - Continue home meds, currently controlled Alcohol abuse: - last drink was 2 days ago, monitor for withdrawal signs Cocaine abuse - avoid bblockers. area counselor on cessation Macrocytic anemia: - chronic related to low folate - supplement folate Elevated LFT - mild elevation of AST on admission. 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 no concern for acute hepatitis Dispo: pt is showing significant improvement. likely ready for dc in the next 24 -48 hours. <Bang Gilbert - Last Filed: 08/16/17 08:11> (1) Acute respiratory failure with hypoxia Code(s): J96.01 - ACUTE RESPIRATORY FAILURE WITH HYPOXIA Status: Resolved (2) COPD exacerbation Code(s): J44.1 - CHRONIC OBSTRUCTIVE PULMONARY DISEASE W (ACUTE) EXACERBATION Status: Acute (3) Hypertension Code(s): I10 - ESSENTIAL (PRIMARY) HYPERTENSION Status: Chronic Qualifiers: Hypertension type: unspecified Qualified Code(s): I10 - Essential (primary ) hypertension (4) Alcohol abuse Code(s): F10.10 - ALCOHOL ABUSE, UNCOMPLICATED Status: Chronic (5) Macrocytic anemia Code(s): D53.9 - NUTRITIONAL ANEMIA, UNSPECIFIED Status: Chronic <Elian Martínez - Last Filed: 08/16/17 11:36> Attending Addendum - Attending Addendum Date/Time: 08/16/17 [id number] I personally evaluated the patient and discussed the management with Dr. Gilbert. I agree with the History, Examination, Assessment and Plan documented above with any addition or exceptions noted below. Patient has been off Bipap near 24 hours and is satting high 90s to 100% on room air. His low O2 sats are timed with poor waveforms on the monitors. We will ambulate patient today and anticipate discharge. He has transfer orders to leave [facility]. Continue Azithromycin and steroids. Will work with CM to see if he qualifies for medication assistance to help improve med compliance. Needs to avoid cocaine use. <Elian Martínez - Last Filed: 08/16/17 11:36>
[2017-08-16] MEDS: predniSONE 20 MG TAB PO SCH (08:34)
[2017-08-16] MEDS: Citalopram 20 MG TAB PO SCH (08:35)
[2017-08-16] MEDS: Enoxaparin Sodium 40 MG/0.4 ML SYRINGE SC SCH (08:35)
[2017-08-16] MEDS: Famotidine 20 MG TAB PO SCH (08:35)
[2017-08-16] MEDS ORDERED: Cyanocobalamin (Vitamin B-12) 1,000 MCG TAB PO SCH (09:00)
[2017-08-16] MEDS ORDERED: Non-Formulary Item 1 EACH (Tiotropium Bromide [Spiriva Respimat] 2 INH) IH SCH ×2 (09:00)
[2017-08-16] MEDS ORDERED: Multivitamin W/ Minerals 1 TAB PO SCH (09:00)
[2017-08-16] MEDS ORDERED: Folic Acid 1 MG TAB PO SCH (09:00)
[2017-08-16] MEDS ORDERED: Azithromycin 250 MG TAB PO SCH (09:00)
[2017-08-16] MEDS ORDERED: Lisinopril 2.5 MG TAB PO SCH (09:00)
[2017-08-16 12:03] VITALS: BP 131/82; TEMP 97.7
[2017-08-16] MEDS ORDERED: Ipratropium Bromide 2.5 ml Neb NEB SCH (13:00)
--- NOTE | 2017-08-16 15:10 | PRG ---
DATE OF SERVICE: 08/16/2017 SUBJECTIVE: The patient stated he is better this morning, less short of breath, less coughing. PHYSICAL EXAMINATION: VITAL SIGNS: His blood pressure is 113/70, sats 99%, temperature 98, pulse 79, respiratory rate 16. CHEST: Minimal wheezing. CARDIAC: Normal S1, S2, no gallops. ABDOMEN: Soft. LABORATORY DATA: Electrolytes are normal. White count normal. ASSESSMENT: Bronchitis. PLAN: He was transferred out of the MICU. PT and supportive care. Hopefully, he can be discharged home in the next several days.
[2017-08-17] MEDS ORDERED: Spiriva 18 MCG CAP (Box of 5 Caps) INH SCH (07:00)
--- NOTE | 2017-08-17 11:36 | DIS-2 ---
DATE OF ADMISSION: 08/14/2017 DATE OF DISCHARGE: 08/16/2017 RESIDENT: Bang Gilbert D.O. ADMITTING ATTENDING: Elian Martínez M.D. DISCHARGE ATTENDING: Elian Martínez M.D. CONSULTS: Pulmonology, Dr. Kamron Jacob PROCEDURES: None. ADMITTING DIAGNOSES: Acute respiratory failure with hypoxia secondary to chronic obstructive pulmon hannah disease exacerbation. SECONDARY DIAGNOSES: Hypertension, alcohol abuse, macrocytic anemia. DISCHARGE MEDICATIONS: Vitamin B12 1000 mcg p.o. daily, Seroquel 100 mg p.o. daily, folic acid 1 mg p.o. daily, lisinopril 2.5 mg p.o. daily, metoprolol tartrate 25 mg p.o. b.i.d., citalopram 20 mg p.o . daily, Tessalon 100 mg p.o. q.4 hourly p.r.n. cough, Dulera 200 mcg/5 mcg two puffs inhaled b.i.d. Ventolin HFA 2 puffs inhaled q.4h. p.r.n. shortness of breath, wheezing. Guaifenesin 600 mg p.o. q.12h. p.r.n. cough, azithromycin 250 mg p.o. daily x3 days, Cefdinir 300 mg p.o. b.i.d. x3 days, prednisone 4 mg p.o. x3 days, Spiriva Respimat 4 mg mist 2 puffs inhaled daily. DISCONTINUED MEDICATIONS: None. HOSPITAL COURSE: This is a 62-year-old male with a history of COPD, hypertension, and multidrug abus e was admitted with a COPD exacerbation. Initially on admission, the patient required BiPAP, but was quickly weaned off. For the first 24 hours of admission, the patient would maintain oxygen saturati on on room air for a few hours and then over the course of those hours, his work of breathing would i ncrease and he began to use accessory muscles for breathing and then would require BiPAP again. He w as treated for this exacerbation with scheduled DuoNebs, prednisone, azithromycin and p.r.n. albutero l in between the scheduled nebs. By the second day of admission, he was able to be weaned completely off the BiPAP and needed no oxygen via nasal cannula. Walking oxygen saturation was found to be at 95 on the day of discharge. The patient was discharged with a prescription for continuing prednisone , azithromycin for remainder of a 5 day course. Additionally, the patient stated that he was unable to take his prescribed COPD controller medication due to cost. Case management helped enroll in a pr ogram to help with these medications at a discount. Regarding hypertension, the patient had reasonab le controlled blood pressures throughout the hospitalization and required no changes in medications. Regarding multi-substance abuse, the patient with a previous history of alcohol abuse. At the time of admission, his first drink was the day before; however, he had apparently not been drinking heavil y prior to coming in. While admitted, the patient experienced no tremulousness, no restlessness, no hallucinations. There was little concern for delirium tremens. Additionally, the patient was positi ve for cocaine on admission. Therefore, beta blockers were avoided during hospitalization. The sreekanth ent was counseled on cessation of cocaine as it would worsen due to its long-term effects. Regarding the patient's microcytic anemia, this was stable and his outpatient folate was continued [facility]. DISPOSITION: The patient was discharged in stable condition. DISCHARGE INSTRUCTIONS: 1. Location: Home. 2. Diet: Heart healthy. 3. Followup: Follow up in 1 week with his primary care physician.
--- NOTE | 2017-08-19 14:39 | EKG ---
Test Reason : Blood Pressure : / mmHG Vent. Rate : 082 BPM Atrial Rate : 082 BPM P-R Int : 132 ms QRS Dur : 078 ms QT Int : 398 ms P-R-T Axes : 075 063 075 degrees QTc Int : 464 ms Normal sinus rhythm Prolonged QT Abnormal ECG Confirmed by RUI PENALOZA, COOPER Babcock ([id number]), primer expeditor and drier FIDELINA CHANEY ([id number]) on 08/19/2017 2:38:18 PM Referred By: Confirmed By:COOPER FABIAN MD
== END 2017-08-16 14:10 | disposition home or self-care (01) | DRG 189 ==
LOC: ERS 05:20 → ERHOLD 06:12 → IMCU/EMU 15:59
PROVIDERS: ADMIT Student in an Organized Health Care Education/Training Program; ATTEND Student in an Organized Health Care Education/Training Program
PROC: 5A09357 Assistance with Respiratory Ventilation, Less than 24 Consecutive Hours, Continuous Positive Airway Pressure (ICD-10-PCS; principal; 2017-08-14)
DX: J96.21 Acute and chronic respiratory failure with hypoxia (principal); I11.0 Hypertensive heart disease with heart failure; I50.22 Chronic systolic (congestive) heart failure; J44.0 Chronic obstructive pulmonary disease with (acute) lower respiratory infection; J44.1 Chronic obstructive pulmonary disease with (acute) exacerbation; J40 Bronchitis, not specified as acute or chronic; J96.02 Acute respiratory failure with hypercapnia; F14.10 Cocaine abuse, uncomplicated; Z91.19 Patient's noncompliance with other medical treatment and regimen; F10.10 Alcohol abuse, uncomplicated; D53.9 Nutritional anemia, unspecified; Z79.51 Long term (current) use of inhaled steroids; F17.210 Nicotine dependence, cigarettes, uncomplicated; B18.2 Chronic viral hepatitis C; I16.0 Hypertensive urgency
CPT/HCPCS: 36415; 71045; 80048; 80053; 80306; 82550; 82553; 82805; 83880; 84484; 85025; 87070; 87205; 93005; 94640; 94660; 94760; 96365; 96374; J0456; J2930; J7050; J7620

== ENCOUNTER 2017-08-20 14:03 | Emergency (ER) | payer MEDICARE | END 2017-08-20 14:16 | LOC: ERS 14:03 | DX: Z53.21 Procedure and treatment not carried out due to patient leaving prior to being seen by health care provider (principal) ==

== ENCOUNTER 2017-08-29 19:23 | Emergency (ER) | payer MEDICARE, MEDICAID ==
[2017-08-29 20:31] LABS: #Basophils 0.1 thou/uL (0.0-0.2); #Eosinphils 0.1 thou/uL (0.0-0.7); #Monocytes 0.6 thou/uL (0.11-0.59); #Neutrophils 3.5 thou/uL (1.40-6.50); %Basophils 1.3 % (0.0-1.0); %Eosinophils 1.2 % (0.0-10.0); %Lymphocytes 32.2 % (21.0-51.0); %Monocytes 9.4 % (0.0-10.0); %Neutrophils 55.8 % (42.0-75.0); Hemoglobin 13.6 g/dL (14.0-18.0); Mean Corpuscular HGB CONC 33.8 g/dL (32.0-36.0); Mean Corpuscular Hemoglobin 33.8 pg (27.0-31.0); Mean Corpuscular Volume 99.9 fl (80.0-94.0); Mean Platelet Volume 8.9 fL (7.4-10.4); Platelet Count 140 thou/uL (130-400); Red Blood Cell (RBC) Count 4.03 mill/uL (4.70-6.10); White Blood Cell (WBC) Count 6.2 thou/uL (4.8-10.8)
[2017-08-29 20:51] LABS: ALT (SGPT) 69 U/L (8-55); AST (SGOT) 94 U/L (5-34); Albumin 4.3 g/dL (3.4-4.8); Alkaline Phosphatase 77 U/L (40-150); Anion Gap 17 mmol/L (10-20); BUN (Urea Nitrogen) 5 mg/dL (8.4-25.7); Bilirubin, Total 0.8 mg/dL (0.2-1.2); Calc. Creatinine Clearance 0 mL/min (70-130); Calcium 9.8 mg/dL (7.8-10.44); Carbon Dioxide 23 mmol/L (23-31); Chloride 101 mmol/L (98-107); Estimated GFR-MDRD Greater than 90; Globulin 2.8 g/dL (2.4-3.5); Glucose 72 mg/dL (80-115); Potassium 3.5 mmol/L (3.5-5.1); Protein, Total 7.1 g/dL (5.8-8.1); Sodium 137 mmol/L (136-145)
[2017-08-29 20:55] LABS: CKMB 1.6 ng/mL (0-6.6); Troponin I Less than 0.010 ng/mL (< 0.028)
--- NOTE | 2017-08-29 21:49 | RAD ---
SINGLE VIEW OF THE CHEST: Comparison: 08-14-17 History: Shortness of breath for one month. COPD. FINDINGS: Single view of the chest shows a normal sized cardiomediastinal silhouette. A staple line projects ov er the right lower lobe. Hyperexpansion of lungs may be secondary to COPD. There is no evidence of co nsolidation, mass, or pleural effusions. Degenerative changes are seen in the spine. IMPRESSION: No evidence of acute cardiopulmonary disease. POS: [facility]
[2017-08-29 21:54] LABS: Bilirubin Negative (Negative); Blood, Urine Negative (Negative); Clarity CLEAR (Clear); Glucose, Urine (Dipstick) Negative (Negative); Leukocyte Negative (Negative); Nitrite Negative (Negative); Protein, Urine (Dipstick) Negative (Neg-Trace); Specific Gravity, Urine 1.004 (1.002-1.036); Urobilinogen 0.2 mg/dL (0.2-1.0)
[2017-08-29] MEDS ORDERED: predniSONE 20 MG TAB ONE (23:39)
[2017-08-29 23:56] LABS: Troponin I Less than 0.010 ng/mL (< 0.028)
--- NOTE | 2017-10-30 16:12 | EKG ---
Test Reason : Blood Pressure : / mmHG Vent. Rate : 073 BPM Atrial Rate : 073 BPM P-R Int : 158 ms QRS Dur : 076 ms QT Int : 398 ms P-R-T Axes : 082 032 065 degrees QTc Int : 438 ms Normal sinus rhythm Normal ECG Confirmed by VERENA CLARK MD ([id number]), image editor FIDELINA CHANEY ([id number]) on 10/30/2017 4:11:24 PM Referred By: Confirmed By:VERENA CLARK MD
== END 2017-08-30 00:37 | disposition home or self-care (01) ==
LOC: ERS 19:23
DX: J44.9 Chronic obstructive pulmonary disease, unspecified (principal); F32.9 Major depressive disorder, single episode, unspecified; F17.290 Nicotine dependence, other tobacco product, uncomplicated; Z71.6 Tobacco abuse counseling
CPT/HCPCS: 36415; 71045; 80053; 81003; 82553; 84484; 85025; 93005; 94640; 99406; J7506; J7620

== ENCOUNTER 2017-09-29 20:28 | Observation (INO) | payer MEDICARE, MEDICAID ==
[2017-09-29] MEDS ORDERED: methylPREDNISolone Sod Succ/PF 125 MG/2 ML VIAL ONE (20:39)
--- NOTE | 2017-09-29 21:15 | RAD ---
CHEST ONE VIEW 09/28/17 HISTORY: Cough. COMPARISON: Chest radiograph 08/29/17. FINDINGS: Lungs without focal air space consolidation, pneumothorax or effusion. The cardiac silhouette and me diastinal contours are within normal limits. Faint linear opacities are present in the right lung base. IMPRESSION: Faint linear opacities right lung base may be sequela of early edema. POS: [facility]
[2017-09-29 21:36] LABS: ALT (SGPT) 106 U/L (8-55); AST (SGOT) 121 U/L (5-34); Albumin 3.8 g/dL (3.4-4.8); Alkaline Phosphatase 80 U/L (40-150); Anion Gap 16 mmol/L (10-20); BUN (Urea Nitrogen) 10 mg/dL (8.4-25.7); Bilirubin, Total 0.5 mg/dL (0.2-1.2); Calc. Creatinine Clearance 0 mL/min (70-130); Calcium 8.4 mg/dL (7.8-10.44); Carbon Dioxide 20 mmol/L (23-31); Chloride 110 mmol/L (98-107); Estimated GFR-MDRD 85; Globulin 2.5 g/dL (2.4-3.5); Glucose 91 mg/dL (80-115); Potassium 3.7 mmol/L (3.5-5.1); Protein, Total 6.3 g/dL (5.8-8.1); Sodium 142 mmol/L (136-145)
[2017-09-29 21:41] LABS: CKMB 0.6 ng/mL (0-6.6); Troponin I Less than 0.010 ng/mL (< 0.028)
[2017-09-29 21:54] LABS: Eosinophils 2 % (0-10); Hemoglobin 12.5 g/dL (14.0-18.0); Lymphocytes 79 % (21-51); MDiff Complete? YES; Macrocytosis MODERATE=16-30 cells (100X) (0-5/hpf); Mean Corpuscular HGB CONC 33.2 g/dL (32.0-36.0); Mean Corpuscular Hemoglobin 33.9 pg (27.0-31.0); Mean Platelet Volume 8.6 fL (7.4-10.4); Monocytes 6 % (0-10); Neutrophil 12 % (42-75); PLT Morphology Comment Appears Decreased; Platelet Count 107 thou/uL (130-400); RBC Distribution Width 13.2 % (11.5-14.5); Reactive Lymphocytes 1 % (0-10); Red Blood Cell (RBC) Count 3.67 mill/uL (4.70-6.10)
[2017-09-30] MEDS ORDERED: Albuterol Sulfate 2.5 mg/3 ml Neb ONE (00:20)
[2017-09-30 01:31] VITALS: BMI 19.3
[2017-09-30] MEDS: Albuterol Sulfate 2.5 mg/3 ml Neb NEB SCH ×4 (04:07→10:55)
[2017-09-30 06:23] LABS: Amphetamine Not Detected (NotDetected); Barbiturates Screen Not Detected (NotDetected); Benzodiazepine Screen Not Detected (NotDetected); Cocaine Metabolite Screen Detected (NotDetected); Medtox Control Line Valid? VALID (VALID); Medtox Reader # READER 4; Methadone Not Detected (NotDetected); Methamphetamine Not Detected (NotDetected); Opiate Screen Not Detected (NotDetected); Oxycodone Screen Not Detected (NotDetected); Phencyclidine (PCP) Not Detected (NotDetected); THC/Cannabinoid Screen Not Detected (NotDetected); Tricyclic Screen Not Detected (NotDetected)
[2017-09-30] MEDS ORDERED: hydrALAZINE 20 MG/ML VIAL SLOW IVP PRN (08:24)
[2017-09-30] MEDS ORDERED: Ondansetron HCl/PF 4 MG/2 ML Vial IVP PRN (08:24)
[2017-09-30] MEDS ORDERED: Bisacodyl 5 MG TAB PO PRN (08:24)
[2017-09-30] MEDS ORDERED: Senokot 8.6 MG TAB PO PRN (08:24)
[2017-09-30] MEDS ORDERED: Calcium Carbonate 500 MG ChewTAB PO PRN (08:24)
[2017-09-30] MEDS ORDERED: Lorazepam 2 MG/ML VIAL SLOW IVP PRN (08:24)
[2017-09-30] MEDS ORDERED: Acetaminophen 325 MG TAB PO PRN (08:24)
[2017-09-30] MEDS ORDERED: Nitroglycerin 0.4 MG TAB (25 Tab Bottle) SL PRN (08:24)
[2017-09-30] MEDS ORDERED: Famotidine 20 MG TAB PO PRN (08:24)
[2017-09-30] MEDS ORDERED: Mag-Al 1200 mg/1200 mg/30 ML UDCUP PO PRN (08:24)
[2017-09-30] MEDS ORDERED: Loratadine 10 MG TAB PO PRN (08:24)
[2017-09-30] MEDS ORDERED: Benzonatate 100 MG CAP PO PRN (08:24)
[2017-09-30] MEDS ORDERED: cloNIDine 0.1 MG TAB PO PRN (08:24)
[2017-09-30] MEDS ORDERED: Diabetic Tussin 200 MG/10 ML UDCUP PO PRN (08:24)
[2017-09-30] MEDS ORDERED: predniSONE 50 MG TAB PO SCH (09:00)
[2017-09-30] MEDS: Amoxicillin/Potassium Clav 875 MG TAB PO SCH ×2 (11:05→19:55)
[2017-09-30] MEDS: Enoxaparin Sodium 40 MG/0.4 ML SYRINGE SC SCH (11:06)
[2017-09-30] MEDS ORDERED: Mometasone/Formoterol 120 PUFF INHALER INH SCH ×2 (12:49→13:45)
--- NOTE | 2017-09-30 13:26 | HP ---
DATE OF ADMISSION: 09/30/2017 PRIMARY CARE PHYSICIAN: Dr. Saavedra, but the patient has not seen him in "a long time." CHIEF COMPLAINT: Shortness of breath. HISTORY OF PRESENT ILLNESS: Mr. Aguirre is a 62-year-old male with known history of hepatitis C; MEDICAL AFFAIRS MANAGER D; alcohol, tobacco and drug abuse; who presented to the emergency room with the above-mentioned comp laint. History is mainly obtained by the patient himself and electronical medical records have been reviewed. The patient was admitted here last about one month ago with similar complaints for acute r espiratory failure secondary to chronic obstructive pulmonary disease exacerbation. He was discharge d on plenty of medications that were appropriate for him and was instructed to follow with the [facility] physician. Neither did he take his medication nor did he followup and he continues to do alco hol, tobacco and cocaine. He came to the emergency room last night for complaints of worsening shortness of breath. He does no t have any inhalers or nebulizers at home for him. He also complained about chest pain that was comi ng and going. He underwent general evaluation. Upon presentation, his oxygen saturation is recorded as 96% on 2 liters. I do not have oxygen saturation on room air upon presentation. He was found to have significant wheezing in the emergency room requiring several nebulizers. He was also given IV steroids and is feeling much better now. He is being admitted for COPD exacerbation a t this time. He has been weaned off of oxygen since then. His chest x-ray did not show any acute ca rdiopulmonary abnormality except for mild edema. PAST MEDICAL HISTORY: 1. COPD. 2. History of chronic hepatitis C. 3. Alcohol abuse. 4. Drug abuse. 5. Tobacco abuse, he smokes cigars. 6. Hypertension. 7. Noncompliance. 8. History of subdural hematoma. 9. Chronic kidney disease, stage 3. 10. History of Clostridium difficile colitis. 11. Osteomyelitis of his ankle and heel. 12. History of transient ischemic attack. PAST SURGICAL HISTORY: 1. Hernia repair x2. 2. Right foot and ankle surgery. PAST PSYCHIATRIC HISTORY: Anxiety and depression. SOCIAL HISTORY: According to him, he drinks about 2-3 small 8-10 ounces beer every day and smokes ab out 5-6 cigars daily. He did deny any drug abuse, but when I told him that he has tested positive fo r cocaine, he agreed to doing it infrequently. FAMILY HISTORY: The patient's father of colon cancer. The patient's mother possible alcoholic cirrhosis. He had a brother and sister both of lung cancer. ALLERGIES: No known medication allergies. CURRENT MEDICATIONS: He is not taking any medications. REVIEW OF SYSTEMS: The following complete review of systems was negative, unless otherwise mentioned in the HPI or below: Constitutional: Weight loss or gain, ability to conduct usual activities. Skin: Rash, itching. Eyes: Double vision, pain. ENT/Mouth: Nose bleeding, neck stiffness, pain, tenderness. Cardiovascular: Palpitations, dyspnea on exertion, orthopnea. Respiratory: Shortness of breath, wheezing, cough, hemoptysis, fever or night sweats. Gastrointestinal: Poor appetite, abdominal pain, heartburn, nausea, vomiting, constipation, or diarr hea. Genitourinary: Urgency, frequency, dysuria, nocturia. Musculoskeletal: Pain, swelling. Neurologic/Psychiatric: Anxiety, depression. Allergy/Immunologic: Skin rash, bleeding tendency. A 12-point review of systems is done and is negative except for those mentioned in the history and ph ysical. LABORATORY DATA: CBC shows hemoglobin 12.5, which is mainly macrocytic. Platelet count of 107. Ser um chemistries, bicarbonate 20, chloride 110, AST 121, ALT 106, otherwise unremarkable. Cardiac enzy mes are normal. BNP is normal at 11. His drug screen is positive for cocaine. Chest x-ray by my re view has no pulmonary infiltrate. There is trace edema and pulmonary vascular congestion by my revie w. Twelve-lead EKG by my review shows normal sinus rhythm at 98 beats per minute without any ST or T -wave changes. PHYSICAL EXAMINATION: VITAL SIGNS: Most recent vital signs, temperature 98.2, pulse of 81, respirations 18, saturating 97% on room air, blood pressure 132/74. GENERAL: No acute distress, awake, alert, oriented x3. He is able to converse in full sentences. N o respiratory distress noticed. HEENT: Mucous membrane is moist and pink. No oropharyngeal exudate or erythema. Head is normocepha lic, atraumatic. Pupils equal, reactive to light and accommodation. Extraocular movement intact. NECK: Supple without any lymphadenopathy, JVD or bruit. CHEST: Has few diffuse expiratory wheezes without any crackles. Rate and rhythm is regular without any murmur, rubs or gallops. ABDOMEN: Soft, nontender, and nondistended. Positive bowel sounds. EXTREMITIES: Free of any cyanosis, clubbing, or edema. NEUROLOGIC: Nonfocal. SKIN: Free of any rashes or bruises. I feel warm and dry to touch. PSYCHIATRIC: Normal affect. IMPRESSION AND PLAN: 1. Acute chronic obstructive pulmonary disease exacerbation. The patient will be started on IV ster oids and nebulizers as needed and scheduled basis. We will give him empiric antibiotics for the lunchroom attendant michell obstructive pulmonary disease exacerbation in the form of oral Augmentin. Continue with supporti ve care including the Mucinex. We will add Dulera as well. The patient is severely noncompliant wit h his medication and continues to smoke. I had a long discussion with him about this and at least fo r the time being, he seems receptive. He will be discharged on long-acting inhalers including steroi ds and bronchodilators upon discharge as well as prednisone. 2. History of chronic hepatitis C, untreated as far as I could tell from the record review. 3. History of tobacco disorder. Counseling has been provided. We will offer nicotine patch if need ed. 4. Alcohol abuse. The patient was counseled to avoid alcohol products. We will restart him on foli c acid and vitamin B12, which obviously requires. 5. History of hypertension. Monitor and start him on medications as needed. Otherwise, start him o n p.r.n. antihypertensives for now. 6. Chronic kidney disease, stage 3, stable for now. 7. Macrocytic anemia likely due to alcohol abuse. Start folic acid and vitamin B12. 8. Thrombocytopenia, once again secondary to chronic liver disease and alcohol abuse. We will monit or the platelet count on a chronic basis. 9. Deep venous thrombosis and gastrointestinal prophylaxis. 10. Code status: FULL CODE. Discussed with the patient. DISPOSITION: Mr. Aguirre is currently being admitted to the hospital for acute COPD exacerbation wit h bronchitis. Further management will depend upon his clinical course. Estimated length of stay at this time is at least 2-3 midnights.
[2017-09-30] MEDS: Mometasone/Formoterol 120 PUFF INHALER INH SCH (19:01)
[2017-09-30] MEDS: traMADol HCl 50 MG TAB PO PRN (19:54)
[2017-09-30] MEDS: guaiFENesin ER 600 MG TAB PO SCH (19:55)
[2017-10-01] MEDS: traMADol HCl 50 MG TAB PO PRN (05:35)
[2017-10-01 05:51] LABS: #Lymphocytes 0.3 thou/uL (1.20-3.40); #Monocytes 0.5 thou/uL (0.11-0.59); %Eosinophils 0.2 % (0.0-10.0); %Lymphocytes 5.4 % (21.0-51.0); %Monocytes 8.8 % (0.0-10.0); %Neutrophils 85.6 % (42.0-75.0); Hemoglobin 13.6 g/dL (14.0-18.0); Mean Corpuscular HGB CONC 33.6 g/dL (32.0-36.0); Mean Corpuscular Hemoglobin 33.5 pg (27.0-31.0); Mean Corpuscular Volume 99.6 fl (80.0-94.0); Mean Platelet Volume 9.2 fL (7.4-10.4); Platelet Count 133 thou/uL (130-400); RBC Distribution Width 13.1 % (11.5-14.5); Red Blood Cell (RBC) Count 4.05 mill/uL (4.70-6.10); White Blood Cell (WBC) Count 5.8 thou/uL (4.8-10.8)
[2017-10-01 06:09] LABS: Anion Gap 12 mmol/L (10-20); BUN (Urea Nitrogen) 12 mg/dL (8.4-25.7); Calc. Creatinine Clearance 79 mL/min (70-130); Calcium 9.8 mg/dL (7.8-10.44); Carbon Dioxide 26 mmol/L (23-31); Chloride 102 mmol/L (98-107); Estimated GFR-MDRD Greater than 90; Glucose 127 mg/dL (80-115); Potassium 4.1 mmol/L (3.5-5.1); Sodium 136 mmol/L (136-145)
[2017-10-01] MEDS ORDERED: Spiriva 18 MCG CAP (Box of 5 Caps) INH SCH (07:00)
[2017-10-01] MEDS: Mometasone/Formoterol 120 PUFF INHALER INH SCH (07:34)
[2017-10-01] MEDS: Enoxaparin Sodium 40 MG/0.4 ML SYRINGE SC SCH (08:53)
[2017-10-01] MEDS: guaiFENesin ER 600 MG TAB PO SCH (08:53)
[2017-10-01] MEDS: Amoxicillin/Potassium Clav 875 MG TAB PO SCH (08:53)
[2017-10-01] MEDS ORDERED: Folic Acid 1 MG TAB PO SCH (09:00)
[2017-10-01] MEDS ORDERED: Cyanocobalamin (Vitamin B-12) 1,000 MCG TAB PO SCH (09:00)
[2017-10-01] MEDS ORDERED: Multivitamin W/ Minerals 1 TAB PO SCH (09:00)
[2017-10-01] MEDS ORDERED: Lisinopril 2.5 MG TAB PO SCH (09:00)
[2017-10-01] MEDS ORDERED: Metoprolol Tartrate 25 MG TAB PO SCH ×2 (09:45→21:00)
[2017-10-01 13:41] VITALS: BP 157/89; TEMP 98.1
[2017-10-01] MEDS ORDERED: Mometasone/Formoterol 120 PUFF INHALER INH SCH (18:30)
--- NOTE | 2017-10-01 20:39 | DIS ---
DATE OF ADMISSION: 09/30/2017 DATE OF DISCHARGE: 10/01/2017 CONDITION AT THE TIME OF DISCHARGE: Stable and improved. DISCHARGE DIAGNOSES: 1. Acute chronic obstructive pulmonary disease exacerbation. 2. Medical noncompliance. 3. Hypertension. 4. History of chronic hepatitis C. 5. History of drug, tobacco and alcohol abuse. 6. History of subdural hematoma. 7. Chronic kidney disease, stage 3. 8. History of osteomyelitis. 9. History of Clostridium difficile. PRIMARY CARE PHYSICIAN: Rolf Marcelo MD, though the patient has not seen him in quite a long ti me. DISCHARGE MEDICATIONS: Medrol tapering Dosepak, Mucinex 600 mg p.o. b.i.d. for 5 days, Ventolin inha ler every 4 hours as needed, Spiriva 2 inhalations daily nebulizers, DuoNeb as needed every 4 hours, Dulera 200/5 mcg 2 puffs b.i.d., Lopressor 25 mg p.o. b.i.d., Zestril 2.5 mg p.o. daily, folic acid 1 mg daily, B12 1000 mcg daily, Tessalon Perles as needed and Augmentin 875 mg p.o. b.i.d. for 5 more days. PROCEDURES DONE IN THE HOSPITAL: A chest x-ray, which does not show any infiltrate. HISTORY OF PRESENTING ILLNESS: Mr. Aguirre is a 62-year-old male with known history of COPD, chronic alcohol abuse, tobacco and drug abuse and hepatitis C who presented to the hospital with complaints of worsening shortness of breath. He was found to be cocaine positive and an acute COPD exacerbation . He was admitted in observation status for further treatment. Please see admission history and phy sical dictated by myself for further detail. He was not hypoxic on presentation. He was started on IV steroids, nebulizers, empiric antibiotics and supportive care. HOSPITAL COURSE: The patient had significant improvement in his symptoms quite quickly. He was cont inued on these treatments until his discharge. I did discuss his lifestyle choices with him and his positive coping status. I emphasized that he needs to take his medications, follow up with primary c are physician and stay away from the drugs, alcohol and tobacco. He does seem receptive at this time , but this is the second admission in less than 2 months, so the likelihood of him being compliant at this point is very low. He remains high risk of readmission due to medication and medical noncompli ance, drug abuse and tobacco abuse. He was seen and examined prior to discharge and has no new complaints. PHYSICAL EXAMINATION: This morning includes, VITAL SIGNS: Temperature 98.2, pulse of 68, respirations 14, saturating 96%-94% on room air, blood p ressure 157/92. GENERAL: No acute distress, awake, alert and oriented x3. CHEST: Clear to auscultation without any wheezing, rales or rhonchi. He does have decreased air ent ry on both sides. HEART: Rate and rhythm are regular without any murmur, rubs or gallops. ABDOMEN: Soft, nontender, nondistended with positive bowel sounds. At this time, he is stable and will be discharged home shortly. Once again, I have emphasized the im portance of taking his medications at home to prevent readmission.
[2017-10-02] MEDS ORDERED: Non-Formulary Item 1 EACH (Tiotropium Bromide [Spiriva Respimat] 2 INH) IH SCH (09:00)
--- NOTE | 2017-10-02 14:47 | EKG ---
Test Reason : Blood Pressure : / mmHG Vent. Rate : 096 BPM Atrial Rate : 096 BPM P-R Int : 142 ms QRS Dur : 082 ms QT Int : 340 ms P-R-T Axes : 083 -02 069 degrees QTc Int : 429 ms Normal sinus rhythm Normal ECG No ST elevation/AK Confirmed by ALEKSANDER MICHELLE M.D. ([id number]), offline editor LISA PURDY ([id number]) on 10/02/2017 2:47:15 PM Referred By: Confirmed By:ALEKSANDER MICHELLE M.D.
== END 2017-10-01 13:41 | disposition home or self-care (01) ==
LOC: ERS 20:28 → SURG B 09-30
PROVIDERS: ADMIT Internal Medicine; ATTEND Internal Medicine
DX: J44.1 Chronic obstructive pulmonary disease with (acute) exacerbation (principal); F17.290 Nicotine dependence, other tobacco product, uncomplicated; B18.2 Chronic viral hepatitis C; F10.10 Alcohol abuse, uncomplicated; I12.9 Hypertensive chronic kidney disease with stage 1 through stage 4 chronic kidney disease, or unspecified chronic kidney disease; N18.3 Chronic kidney disease, stage 3 (moderate); D69.59 Other secondary thrombocytopenia; F41.9 Anxiety disorder, unspecified; F32.9 Major depressive disorder, single episode, unspecified; D53.9 Nutritional anemia, unspecified; F19.11 Other psychoactive substance abuse, in remission; Z91.19 Patient's noncompliance with other medical treatment and regimen
CPT/HCPCS: 71045; 80048; 80053; 80306; 82553; 83880; 84484; 85025 ×2; 93005; 94640 ×7; 94660; 96361; 96372 ×2; 96374; 96376 ×2; 97139 ×2; 99285; G0378; 36415; J1650; J2920; J2930; J7611; J7620

== ENCOUNTER 2017-10-15 15:50 | Emergency (ER) | payer MEDICARE ==
[2017-10-15] MEDS ORDERED: Albuterol Sulfate 2.5 mg/0.5 ml Neb ONE (16:03)
[2017-10-15] MEDS ORDERED: Dexamethasone 10 MG/ML VIAL ONE (16:18)
[2017-10-15 16:31] LABS: ALV-art Gradient 28.265 (0-20); Actual Bicarbonate (HCO3a) 20.3 mEq/L (22-26); Analyzer IN Cardio ER; Base Excess (BEa) -5.4 mEq/L (0 (+/-) 2.5); CO2 Tension 39.9 mmHg (35.0-45.0); Calcium, Ionized 1.2 mmol/L (1.12-1.30); Hematocrit-ABG 43.5 % (42.0-52.0); Hemoglobin (Hb) 12.4 g/dL (14.0-18.0); O2 Tension (PaO2) 120.1 mmHg (80.0-100.0); Puncture Site RRA; pH, Arterial 7.32 (7.35-7.45)
[2017-10-15 17:16] LABS: #Lymphocytes 1.3 thou/uL (1.20-3.40); #Monocytes 0.5 thou/uL (0.11-0.59); %Basophils 0.6 % (0.0-1.0); %Eosinophils 0.2 % (0.0-10.0); %Lymphocytes 21.9 % (21.0-51.0); %Monocytes 8.9 % (0.0-10.0); %Neutrophils 68.4 % (42.0-75.0); Hemoglobin 12.8 g/dL (14.0-18.0); Mean Corpuscular HGB CONC 33.6 g/dL (32.0-36.0); Mean Corpuscular Hemoglobin 33.6 pg (27.0-31.0); Mean Platelet Volume 8.9 fL (7.4-10.4); Platelet Count 130 thou/uL (130-400); RBC Distribution Width 12.4 % (11.5-14.5); White Blood Cell (WBC) Count 5.8 thou/uL (4.8-10.8)
--- NOTE | 2017-10-15 17:36 | RAD ---
CHEST ONE VIEW UPRIGHT PORTABLE 10/15/17 HISTORY: 62-year-old female with history of dyspnea. COMPARISON: None. FINDINGS: Monitor leads overlie the chest. Minimal stable increased linear and interstitial markings. Heart siz e is within normal limits. No confluent pneumonia, overt edema or pleural effusion. IMPRESSION: Stable minimal bilateral interstitial changes. Atherosclerosis of the aorta. No pneumonia or other ac rishabh process. POS: [facility]
[2017-10-15 17:39] LABS: Anion Gap 21 mmol/L (10-20); BUN (Urea Nitrogen) 10 mg/dL (8.4-25.7); CK (CPK) 104 U/L (30-200); Calc. Creatinine Clearance 0 mL/min (70-130); Calcium 9.2 mg/dL (7.8-10.44); Carbon Dioxide 18 mmol/L (23-31); Chloride 96 mmol/L (98-107); Estimated GFR-MDRD Greater than 90; Glucose 85 mg/dL (80-115); Lipase 24 U/L (8-78); Potassium 3.1 mmol/L (3.5-5.1); Sodium 132 mmol/L (136-145)
== END 2017-10-15 17:57 | disposition home or self-care (01) ==
LOC: ERS 15:50
DX: J44.1 Chronic obstructive pulmonary disease with (acute) exacerbation (principal); F32.9 Major depressive disorder, single episode, unspecified; F17.210 Nicotine dependence, cigarettes, uncomplicated
CPT/HCPCS: 36415; 71045; 80048; 82550; 82805; 83690; 83880; 85025; 93005; 96374; J1100; J7611; J7620

== ENCOUNTER 2017-10-19 22:22 | Emergency (ER) | payer MEDICARE, MEDICAID ==
[2017-10-19] MEDS ORDERED: predniSONE 20 MG TAB ONE (22:44)
[2017-10-19 23:00] LABS: #Eosinphils 0.2 thou/uL (0.0-0.7); #Monocytes 0.5 thou/uL (0.11-0.59); #Neutrophils 1.4 thou/uL (1.40-6.50); %Basophils 0.7 % (0.0-1.0); %Eosinophils 5.6 % (0.0-10.0); %Lymphocytes 47.7 % (21.0-51.0); %Neutrophils 33.1 % (42.0-75.0); Hemoglobin 13.4 g/dL (14.0-18.0); Mean Corpuscular Hemoglobin 33.7 pg (27.0-31.0); Mean Corpuscular Volume 99.1 fl (80.0-94.0); Mean Platelet Volume 8.6 fL (7.4-10.4); Platelet Count 154 thou/uL (130-400); RBC Distribution Width 12.2 % (11.5-14.5); Red Blood Cell (RBC) Count 3.99 mill/uL (4.70-6.10); White Blood Cell (WBC) Count 4.1 thou/uL (4.8-10.8)
[2017-10-19 23:22] LABS: Anion Gap 17 mmol/L (10-20); BUN (Urea Nitrogen) 11 mg/dL (8.4-25.7); Calc. Creatinine Clearance 0 mL/min (70-130); Calcium 9.7 mg/dL (7.8-10.44); Carbon Dioxide 22 mmol/L (23-31); Chloride 105 mmol/L (98-107); Estimated GFR-MDRD 83; Glucose 156 mg/dL (80-115); Potassium 3.9 mmol/L (3.5-5.1); Sodium 140 mmol/L (136-145)
[2017-10-19 23:26] LABS: CKMB 0.8 ng/mL (0-6.6); Troponin I Less than 0.010 ng/mL (< 0.028)
--- NOTE | 2017-10-30 15:09 | EKG ---
Test Reason : Blood Pressure : / mmHG Vent. Rate : 102 BPM Atrial Rate : 102 BPM P-R Int : 138 ms QRS Dur : 084 ms QT Int : 338 ms P-R-T Axes : 082 013 067 degrees QTc Int : 440 ms Poor data quality, interpretation may be adversely affected Sinus tachycardia Otherwise normal ECG Confirmed by RALPH WHITE ([id number]), manuscript editor FIDELINA CHANEY ([id number]) on 10/30/2017 3:09:19 PM Referred By: Confirmed By:RALPH WHITE
== END 2017-10-20 00:47 | disposition home or self-care (01) ==
LOC: ERS 22:22
DX: J44.1 Chronic obstructive pulmonary disease with (acute) exacerbation (principal); Z91.14 Patient's other noncompliance with medication regimen; F32.9 Major depressive disorder, single episode, unspecified; F17.210 Nicotine dependence, cigarettes, uncomplicated; Z79.899 Other long term (current) drug therapy
CPT/HCPCS: 36415; 80048; 82553; 84484; 85025; 93005; J7506; J7620

== ENCOUNTER 2017-10-22 21:29 | Emergency (ER) | payer MEDICARE, MEDICAID ==
[2017-10-22 22:13] LABS: #Basophils 0.1 thou/uL (0.0-0.2); #Eosinphils 0.1 thou/uL (0.0-0.7); #Lymphocytes 2.5 thou/uL (1.20-3.40); #Monocytes 0.8 thou/uL (0.11-0.59); #Neutrophils 3.4 thou/uL (1.40-6.50); %Eosinophils 1.9 % (0.0-10.0); %Lymphocytes 36.5 % (21.0-51.0); %Monocytes 11.5 % (0.0-10.0); %Neutrophils 49.2 % (42.0-75.0); Mean Corpuscular Hemoglobin 34.7 pg (27.0-31.0); Mean Corpuscular Volume 99.1 fl (80.0-94.0); Mean Platelet Volume 8.3 fL (7.4-10.4); Platelet Count 149 thou/uL (130-400); RBC Distribution Width 12.3 % (11.5-14.5); Red Blood Cell (RBC) Count 3.76 mill/uL (4.70-6.10); White Blood Cell (WBC) Count 6.8 thou/uL (4.8-10.8)
--- NOTE | 2017-10-22 22:20 | RAD ---
CHEST ONE VIEW 10/22/17 HISTORY: Shortness of breath. COMPARISON: Chest radiograph 10/15/17. FINDINGS: There is a small right effusion. Mild increased interstitial markings in the lung bases. Lung apices are clear. Old right posterior rib fracture. IMPRESSION: 1. Small right layering pleural effusion. 2. Right basilar suture material. 3. Faint left basilar air space opacity may be sequela of infection. POS: [facility]
[2017-10-22 22:21] LABS: ALT (SGPT) 80 U/L (8-55); AST (SGOT) 226 U/L (5-34); Albumin 4.1 g/dL (3.4-4.8); Alkaline Phosphatase 98 U/L (40-150); Anion Gap 18 mmol/L (10-20); BUN (Urea Nitrogen) 16 mg/dL (8.4-25.7); Bilirubin, Total 0.4 mg/dL (0.2-1.2); Calc. Creatinine Clearance 0 mL/min (70-130); Calcium 9.3 mg/dL (7.8-10.44); Carbon Dioxide 22 mmol/L (23-31); Chloride 105 mmol/L (98-107); Estimated GFR-MDRD 86; Globulin 2.8 g/dL (2.4-3.5); Glucose 84 mg/dL (80-115); Potassium 3.8 mmol/L (3.5-5.1); Protein, Total 6.9 g/dL (5.8-8.1); Sodium 141 mmol/L (136-145)
[2017-10-22 22:24] LABS: CKMB 0.6 ng/mL (0-6.6); Troponin I Less than 0.010 ng/mL (< 0.028)
[2017-10-22] MEDS ORDERED: cefTRIAXone\\ROCEPHIN 2 GM VIAL ONE (23:16)
== END 2017-10-23 01:41 | disposition home or self-care (01) ==
LOC: ERS 21:29
DX: J18.9 Pneumonia, unspecified organism (principal); J44.9 Chronic obstructive pulmonary disease, unspecified; F32.9 Major depressive disorder, single episode, unspecified; F17.290 Nicotine dependence, other tobacco product, uncomplicated
CPT/HCPCS: 36415; 71045; 80053; 82553; 83880; 84484; 85025; 93005; 94640; 96365; J0696; J7620

== ENCOUNTER 2017-10-25 21:13 | Emergency (ER) | payer MEDICARE, MEDICAID ==
--- NOTE | 2017-10-25 21:46 | RAD ---
PORTABLE CHEST: HISTORY: Dyspnea. COMPARISON: 10/22/2017 FINDINGS: The lungs are clear. The heart and mediastinum appear normal. IMPRESSION: No acute abnormality. POS: [facility]
[2017-10-25 21:47] LABS: Hemoglobin 13.1 g/dL (14.0-18.0); Mean Corpuscular HGB CONC 34.1 g/dL (32.0-36.0); Mean Corpuscular Hemoglobin 33.6 pg (27.0-31.0); Mean Corpuscular Volume 98.6 fl (80.0-94.0); Mean Platelet Volume 8.4 fL (7.4-10.4); Platelet Count 129 thou/uL (130-400); RBC Distribution Width 12.4 % (11.5-14.5); White Blood Cell (WBC) Count 5.5 thou/uL (4.8-10.8)
[2017-10-25 22:05] LABS: ALT (SGPT) 135 U/L (8-55); AST (SGOT) 230 U/L (5-34); Albumin 4.2 g/dL (3.4-4.8); Alkaline Phosphatase 73 U/L (40-150); Anion Gap 20 mmol/L (10-20); BUN (Urea Nitrogen) 5 mg/dL (8.4-25.7); Bilirubin, Total 0.6 mg/dL (0.2-1.2); CK (CPK) 105 U/L (30-200); Calc. Creatinine Clearance 0 mL/min (70-130); Calcium 9.5 mg/dL (7.8-10.44); Carbon Dioxide 19 mmol/L (23-31); Chloride 105 mmol/L (98-107); Eosinophils 2 % (0-10); Estimated GFR-MDRD Greater than 90; Globulin 2.7 g/dL (2.4-3.5); Glucose 84 mg/dL (80-115); Lymphocytes 50 % (21-51); MDiff Complete? YES; Monocytes 14 % (0-10); Neutrophil 27 % (42-75); Potassium 3.6 mmol/L (3.5-5.1); Protein, Total 6.9 g/dL (5.8-8.1); RBC Morphology Normal; Reactive Lymphocytes 6 % (0-10); Sodium 140 mmol/L (136-145)
[2017-10-25 22:09] LABS: CKMB 0.7 ng/mL (0-6.6); Troponin I Less than 0.010 ng/mL (< 0.028)
== END 2017-10-26 00:15 | disposition home or self-care (01) ==
LOC: ERS 21:13
DX: J44.1 Chronic obstructive pulmonary disease with (acute) exacerbation (principal); F32.9 Major depressive disorder, single episode, unspecified; F17.210 Nicotine dependence, cigarettes, uncomplicated
CPT/HCPCS: 36415; 71045; 80053; 82553; 84484; 85025; 93005

== ENCOUNTER 2021-12-24 11:12 | Emergency (ER) | payer MEDICAID, MEDICARE, OTHER | END 2021-12-24 11:45 | LOC: ERS 11:12 | DX: G51.0 Bell's palsy (principal); J44.9 Chronic obstructive pulmonary disease, unspecified; F17.290 Nicotine dependence, other tobacco product, uncomplicated; Z79.899 Other long term (current) drug therapy | CPT/HCPCS: 99284 ==

== ENCOUNTER 2022-08-26 23:06 | Inpatient (IN) | payer OTHER ==
[2022-08-27 01:56] VITALS: BMI 23.4
[2022-08-27] MEDS ORDERED: Albuterol 200 PUFF (6.7GM INHALER) INH PRN (03:27)
[2022-08-27] MEDS: Ipratropium/Albuterol 3 ML NEB NEB SCH ×2 (08:22→13:16)
[2022-08-27] MEDS: Mometasone 100 MCG/PUFF (1 INHALER) INH SCH ×2 (08:22→19:07)
[2022-08-27] MEDS: traMADol HCl 50 MG TAB PO PRN ×3 (08:38→21:18)
[2022-08-27] MEDS: Hydrochlorothiazide 25 MG TAB PO SCH (08:38)
[2022-08-27] MEDS: Aripiprazole 10 MG TAB PO SCH (08:38)
[2022-08-27] MEDS: Amlodipine 5 MG TAB PO SCH (08:39)
[2022-08-27 09:15] LABS: #Eosinphils 0.3 thou/uL (0.0-0.7); #Lymphocytes 1.1 thou/uL (1.20-3.40); #Monocytes 1.4 thou/uL (0.11-0.59); %Basophils 0.2 % (0.0-1.0); %Eosinophils 2.2 % (0.0-10.0); %Lymphocytes 9.6 % (21.0-51.0); %Monocytes 12.2 % (0.0-10.0); %Neutrophils 75.9 % (42.0-75.0); Hemoglobin 12.4 g/dL (14.0-18.0); Mean Corpuscular Hemoglobin 29.6 pg (27.0-31.0); Mean Corpuscular Volume 95.6 fl (78.0-98.0); Mean Platelet Volume 6.4 fL (7.4-10.4); Platelet Count 455 10x3/uL (130-400); RBC Distribution Width 12.7 % (11.5-14.5); Red Blood Cell (RBC) Count 4.18 mill/uL (4.70-6.10); White Blood Cell (WBC) Count 11.8 10x3/uL (4.8-10.8)
[2022-08-27] MEDS: Cefepime 2 GM in Sodium Chloride 0.9% 100 ML IVPB SCH (11:07)
[2022-08-27] MEDS: Acetaminophen 325 MG TAB PO PRN ×2 (11:10→18:56)
[2022-08-27] MEDS: Vancomycin HCl 750 MG in Sodium Chloride 0.9% 250 ML 250 ML IVPB SCH ×2 (12:32→22:58)
[2022-08-27] MEDS ORDERED: Iopamidol-370 76% 500 ML MDV (1 ML CHARGE) ONE (15:35)
[2022-08-27] MEDS: Albuterol 200 PUFF (6.7GM INHALER) INH SCH (19:06)
[2022-08-27] MEDS: Ipratropium 200 Puff Oral Inhaler INH SCH (19:06)
[2022-08-27] MEDS: Morphine 2 MG/ML VIAL SLOW IVP PRN (22:50)
[2022-08-28] MEDS: Albuterol 200 PUFF (6.7GM INHALER) INH SCH ×5 (00:01→22:38)
[2022-08-28] MEDS: traMADol HCl 50 MG TAB PO PRN ×3 (03:40→21:04)
[2022-08-28] MEDS: Morphine 2 MG/ML VIAL SLOW IVP PRN ×5 (03:40→23:00)
[2022-08-28 07:16] LABS: #Eosinphils 0.3 thou/uL (0.0-0.7); #Monocytes 1.1 thou/uL (0.11-0.59); #Neutrophils 8.3 thou/uL (1.40-6.50); %Basophils 0.2 % (0.0-1.0); %Eosinophils 2.7 % (0.0-10.0); %Lymphocytes 9.5 % (21.0-51.0); %Monocytes 10.3 % (0.0-10.0); %Neutrophils 77.3 % (42.0-75.0); Hemoglobin 12.9 g/dL (14.0-18.0); Mean Corpuscular HGB CONC 31.8 g/dL (32.0-36.0); Mean Corpuscular Hemoglobin 30.5 pg (27.0-31.0); Mean Corpuscular Volume 96.1 fl (78.0-98.0); Mean Platelet Volume 6.5 fL (7.4-10.4); Platelet Count 421 10x3/uL (130-400); RBC Distribution Width 12.8 % (11.5-14.5); Red Blood Cell (RBC) Count 4.21 mill/uL (4.70-6.10); White Blood Cell (WBC) Count 10.7 10x3/uL (4.8-10.8)
[2022-08-28 07:34] LABS: ALT (SGPT) 8 U/L (8-55); AST (SGOT) 16 U/L (5-34); Albumin 3.2 g/dL (3.4-4.8); Alkaline Phosphatase 56 U/L (40-110); Anion Gap 16 mmol/L (10-20); BUN (Urea Nitrogen) 9 mg/dL (8.4-25.7); Bilirubin, Total 0.8 mg/dL (0.2-1.2); Calc. Creatinine Clearance 94 mL/min (70-130); Calcium 9.3 mg/dL (7.8-10.44); Carbon Dioxide 25 mmol/L (23-31); Chloride 99 mmol/L (98-107); Estimated GFR 100; Globulin 3.5 g/dL (2.4-3.5); Glucose 79 mg/dL (80-115); Potassium 3.7 mmol/L (3.5-5.1); Protein, Total 6.7 g/dL (5.8-8.1); Sodium 136 mmol/L (136-145)
[2022-08-28] MEDS: Ipratropium 200 Puff Oral Inhaler INH SCH ×5 (07:43→22:39)
[2022-08-28] MEDS: Mometasone 100 MCG/PUFF (1 INHALER) INH SCH ×2 (07:43→19:17)
[2022-08-28] MEDS: Amlodipine 5 MG TAB PO SCH (09:15)
[2022-08-28] MEDS: Hydrochlorothiazide 25 MG TAB PO SCH (09:16)
[2022-08-28] MEDS: Polyethylene Glycol 3350 17 GM Packet PO SCH (09:16)
[2022-08-28] MEDS: Aripiprazole 10 MG TAB PO SCH (09:16)
[2022-08-28] MEDS ORDERED: Lactated Ringer's 1,000 ML IV SCH (10:15)
[2022-08-28 10:41] LABS: Vancomycin, Trough 8.6 ug/mL
[2022-08-28] MEDS ORDERED: fentaNYL PF 100 MCG/2 ML SYRINGE ONE (11:27)
[2022-08-28] MEDS ORDERED: PROPOFOL 200 MG/20 ML VIAL ONE (11:47)
[2022-08-28] MEDS ORDERED: Ondansetron PF 4 MG/2 ML Vial ONE (11:47)
[2022-08-28] MEDS ORDERED: Lidocaine 1% PF 5 ML VIAL ONE (11:47)
[2022-08-28] MEDS: Vancomycin HCl 750 MG in Sodium Chloride 0.9% 250 ML 250 ML IVPB SCH (11:56)
[2022-08-28] MEDS ORDERED: Vancomycin 1 GM/200 ML (FROZEN) BAG ONE (11:56)
[2022-08-28] MEDS: Vancomycin 1 GM in Premix Bag 1 BAG IVPB SCH (11:57)
[2022-08-28] MEDS: Cefepime 2 GM in Sodium Chloride 0.9% 100 ML IVPB SCH ×3 (11:57→23:00)
[2022-08-28] MEDS ORDERED: fentaNYL 50 mcg/mL 1 mL Vial ONE (12:48)
[2022-08-28] MEDS: Acetaminophen 325 MG TAB PO PRN (13:44)
[2022-08-28] MEDS: Senokot 8.6 MG TAB PO SCH (21:02)
[2022-08-28] MEDS: Ibuprofen 200 MG TAB PO PRN (21:03)
[2022-08-29] MEDS: Vancomycin 1 GM in Premix Bag 1 BAG IVPB SCH ×2 (00:30→12:50)
[2022-08-29] MEDS: traMADol HCl 50 MG TAB PO PRN ×3 (03:38→20:33)
[2022-08-29] MEDS: Ibuprofen 200 MG TAB PO PRN ×2 (03:38→16:09)
[2022-08-29] MEDS: Ipratropium 200 Puff Oral Inhaler INH SCH ×3 (07:15→19:48)
[2022-08-29] MEDS: Albuterol 200 PUFF (6.7GM INHALER) INH SCH ×3 (07:15→19:48)
[2022-08-29] MEDS: Mometasone 100 MCG/PUFF (1 INHALER) INH SCH ×2 (07:16→19:48)
[2022-08-29] MEDS: Hydrochlorothiazide 25 MG TAB PO SCH (07:45)
[2022-08-29] MEDS: Aripiprazole 10 MG TAB PO SCH (07:45)
[2022-08-29] MEDS: Amlodipine 5 MG TAB PO SCH (07:45)
[2022-08-29] MEDS: Polyethylene Glycol 3350 17 GM Packet PO SCH (07:47)
[2022-08-29] MEDS: Morphine 2 MG/ML VIAL SLOW IVP PRN ×3 (07:50→22:54)
[2022-08-29 08:21] LABS: #Basophils 0.2 thou/uL (0.0-0.2); #Eosinphils 0.4 thou/uL (0.0-0.7); #Lymphocytes 0.7 thou/uL (1.20-3.40); #Monocytes 0.8 thou/uL (0.11-0.59); #Neutrophils 5.7 thou/uL (1.40-6.50); %Basophils 2.7 % (0.0-1.0); %Eosinophils 4.6 % (0.0-10.0); %Lymphocytes 8.5 % (21.0-51.0); %Monocytes 10.6 % (0.0-10.0); %Neutrophils 73.6 % (42.0-75.0); Hemoglobin 11.2 g/dL (14.0-18.0); Mean Corpuscular HGB CONC 33.2 g/dL (32.0-36.0); Mean Corpuscular Hemoglobin 31.3 pg (27.0-31.0); Mean Corpuscular Volume 94.5 fl (78.0-98.0); Platelet Count 392 10x3/uL (130-400); RBC Distribution Width 12.7 % (11.5-14.5); Red Blood Cell (RBC) Count 3.57 mill/uL (4.70-6.10); White Blood Cell (WBC) Count 7.8 10x3/uL (4.8-10.8)
[2022-08-29 08:51] LABS: ALT (SGPT) 11 U/L (8-55); AST (SGOT) 20 U/L (5-34); Albumin 3.1 g/dL (3.4-4.8); Alkaline Phosphatase 50 U/L (40-110); Anion Gap 13 mmol/L (10-20); BUN (Urea Nitrogen) 9 mg/dL (8.4-25.7); Bilirubin, Total 0.6 mg/dL (0.2-1.2); Calc. Creatinine Clearance 92 mL/min (70-130); Calcium 9.2 mg/dL (7.8-10.44); Carbon Dioxide 27 mmol/L (23-31); Chloride 101 mmol/L (98-107); Estimated GFR 99; Globulin 3.3 g/dL (2.4-3.5); Glucose 129 mg/dL (80-115); Potassium 3.5 mmol/L (3.5-5.1); Protein, Total 6.4 g/dL (5.8-8.1); Sodium 137 mmol/L (136-145)
[2022-08-29] MEDS: Cefepime 2 GM in Sodium Chloride 0.9% 100 ML IVPB SCH ×2 (11:32→22:56)
[2022-08-29] MEDS: Acetaminophen 325 MG TAB PO PRN (20:35)
[2022-08-29] MEDS: Senokot 8.6 MG TAB PO SCH (20:36)
[2022-08-29 23:19] LABS: Vancomycin, Trough 15.5 ug/mL
[2022-08-30] MEDS: Vancomycin 1 GM in Premix Bag 1 BAG IVPB SCH (00:30)
[2022-08-30] MEDS: Albuterol 200 PUFF (6.7GM INHALER) INH SCH ×4 (00:39→19:05)
[2022-08-30] MEDS: Ipratropium 200 Puff Oral Inhaler INH SCH ×4 (00:39→19:03)
[2022-08-30] MEDS: Ibuprofen 200 MG TAB PO PRN (05:23)
[2022-08-30] MEDS: Morphine 2 MG/ML VIAL SLOW IVP PRN ×2 (06:41→10:38)
[2022-08-30 07:01] LABS: #Eosinphils 0.4 thou/uL (0.0-0.7); #Lymphocytes 0.8 thou/uL (1.20-3.40); #Monocytes 0.9 thou/uL (0.11-0.59); #Neutrophils 6.6 thou/uL (1.40-6.50); %Basophils 0.1 % (0.0-1.0); %Eosinophils 4.4 % (0.0-10.0); %Lymphocytes 9.4 % (21.0-51.0); %Monocytes 10.6 % (0.0-10.0); %Neutrophils 75.6 % (42.0-75.0); Hemoglobin 11.4 g/dL (14.0-18.0); Mean Corpuscular HGB CONC 33.1 g/dL (32.0-36.0); Mean Corpuscular Hemoglobin 31.1 pg (27.0-31.0); Mean Corpuscular Volume 93.9 fl (78.0-98.0); Mean Platelet Volume 6.7 fL (7.4-10.4); Platelet Count 473 10x3/uL (130-400); RBC Distribution Width 12.6 % (11.5-14.5); Red Blood Cell (RBC) Count 3.69 mill/uL (4.70-6.10); White Blood Cell (WBC) Count 8.7 10x3/uL (4.8-10.8)
[2022-08-30 07:26] LABS: ALT (SGPT) 9 U/L (8-55); AST (SGOT) 20 U/L (5-34); Albumin 3.4 g/dL (3.4-4.8); Alkaline Phosphatase 56 U/L (40-110); Anion Gap 15 mmol/L (10-20); BUN (Urea Nitrogen) 9 mg/dL (8.4-25.7); Bilirubin, Total 0.7 mg/dL (0.2-1.2); Calc. Creatinine Clearance 96 mL/min (70-130); Calcium 9.6 mg/dL (7.8-10.44); Carbon Dioxide 28 mmol/L (23-31); Chloride 95 mmol/L (98-107); Estimated GFR 100; Globulin 3.7 g/dL (2.4-3.5); Glucose 94 mg/dL (80-115); Potassium 3.7 mmol/L (3.5-5.1); Protein, Total 7.1 g/dL (5.8-8.1); Sodium 134 mmol/L (136-145)
[2022-08-30] MEDS: Mometasone 100 MCG/PUFF (1 INHALER) INH SCH ×2 (07:42→19:05)
[2022-08-30] MEDS: Hydrochlorothiazide 25 MG TAB PO SCH (08:19)
[2022-08-30] MEDS: Amlodipine 5 MG TAB PO SCH (08:19)
[2022-08-30] MEDS: Aripiprazole 10 MG TAB PO SCH (08:19)
[2022-08-30] MEDS: Polyethylene Glycol 3350 17 GM Packet PO SCH (08:20)
[2022-08-30] MEDS: Acetaminophen 325 MG TAB PO PRN (08:20)
[2022-08-30] MEDS: Ibuprofen 600 MG TAB PO SCH ×3 (11:45→21:31)
[2022-08-30] MEDS: Cefepime 2 GM in Sodium Chloride 0.9% 100 ML IVPB SCH ×2 (11:46→23:54)
[2022-08-30] MEDS ORDERED: Acetaminophen 325 MG TAB PO SCH (15:00)
[2022-08-30] MEDS: Acetaminophen 325 MG TAB PO SCH ×2 (17:03→23:52)
[2022-08-30] MEDS: Senokot 8.6 MG TAB PO SCH (21:30)
[2022-08-31] MEDS: Ipratropium 200 Puff Oral Inhaler INH SCH ×4 (00:55→18:53)
[2022-08-31] MEDS: Albuterol 200 PUFF (6.7GM INHALER) INH SCH ×4 (00:55→18:53)
[2022-08-31] MEDS: Ibuprofen 600 MG TAB PO SCH ×4 (04:28→23:00)
[2022-08-31] MEDS: Acetaminophen 325 MG TAB PO SCH ×4 (06:05→23:01)
[2022-08-31 07:09] LABS: #Eosinphils 0.4 thou/uL (0.0-0.7); #Lymphocytes 1.1 thou/uL (1.20-3.40); #Monocytes 0.8 thou/uL (0.11-0.59); #Neutrophils 4.8 thou/uL (1.40-6.50); %Basophils 0.6 % (0.0-1.0); %Eosinophils 5.6 % (0.0-10.0); %Lymphocytes 14.9 % (21.0-51.0); %Monocytes 11.2 % (0.0-10.0); %Neutrophils 67.7 % (42.0-75.0); Hemoglobin 12.9 g/dL (14.0-18.0); Mean Corpuscular HGB CONC 31.8 g/dL (32.0-36.0); Mean Corpuscular Volume 94.4 fl (78.0-98.0); Mean Platelet Volume 6.8 fL (7.4-10.4); Platelet Count 587 10x3/uL (130-400); RBC Distribution Width 12.7 % (11.5-14.5); Red Blood Cell (RBC) Count 4.28 mill/uL (4.70-6.10); White Blood Cell (WBC) Count 7.1 10x3/uL (4.8-10.8)
[2022-08-31] MEDS: Mometasone 100 MCG/PUFF (1 INHALER) INH SCH ×2 (07:40→18:53)
[2022-08-31] MEDS: Aripiprazole 10 MG TAB PO SCH (08:07)
[2022-08-31] MEDS: Hydrochlorothiazide 25 MG TAB PO SCH (08:07)
[2022-08-31] MEDS: Morphine 2 MG/ML VIAL SLOW IVP PRN ×2 (08:07→12:04)
[2022-08-31] MEDS: Amlodipine 5 MG TAB PO SCH (08:07)
[2022-08-31] MEDS: Polyethylene Glycol 3350 17 GM Packet PO SCH (08:08)
[2022-08-31 08:15] LABS: ALT (SGPT) 11 U/L (8-55); AST (SGOT) 23 U/L (5-34); Albumin 3.7 g/dL (3.4-4.8); Alkaline Phosphatase 62 U/L (40-110); Anion Gap 19 mmol/L (10-20); BUN (Urea Nitrogen) 14 mg/dL (8.4-25.7); Bilirubin, Total 0.8 mg/dL (0.2-1.2); Calc. Creatinine Clearance 84 mL/min (70-130); Calcium 9.7 mg/dL (7.8-10.44); Carbon Dioxide 25 mmol/L (23-31); Chloride 95 mmol/L (98-107); Estimated GFR 97; Globulin 3.7 g/dL (2.4-3.5); Glucose 75 mg/dL (80-115); Potassium 4.8 mmol/L (3.5-5.1); Protein, Total 7.4 g/dL (5.8-8.1); Sodium 134 mmol/L (136-145)
[2022-08-31] MEDS: Cefepime 2 GM in Sodium Chloride 0.9% 100 ML IVPB SCH ×2 (12:05→23:00)
[2022-08-31] MEDS: traMADol HCl 50 MG TAB PO PRN ×2 (12:59→20:15)
[2022-08-31] MEDS: Senokot 8.6 MG TAB PO SCH (20:16)
[2022-09-01] MEDS: Albuterol 200 PUFF (6.7GM INHALER) INH SCH ×4 (01:28→19:00)
[2022-09-01] MEDS: Ipratropium 200 Puff Oral Inhaler INH SCH ×4 (01:29→19:00)
[2022-09-01] MEDS: Ibuprofen 600 MG TAB PO SCH ×3 (03:16→17:40)
[2022-09-01 04:16] LABS: #Eosinphils 0.5 thou/uL (0.0-0.7); #Lymphocytes 1.1 thou/uL (1.20-3.40); #Monocytes 0.9 thou/uL (0.11-0.59); #Neutrophils 5.6 thou/uL (1.40-6.50); %Basophils 0.3 % (0.0-1.0); %Eosinophils 5.7 % (0.0-10.0); %Lymphocytes 13.1 % (21.0-51.0); %Monocytes 11.5 % (0.0-10.0); %Neutrophils 69.4 % (42.0-75.0); Hemoglobin 11.4 g/dL (14.0-18.0); Mean Corpuscular HGB CONC 32.9 g/dL (32.0-36.0); Mean Corpuscular Hemoglobin 31.3 pg (27.0-31.0); Mean Corpuscular Volume 95.1 fl (78.0-98.0); Mean Platelet Volume 6.8 fL (7.4-10.4); Platelet Count 581 10x3/uL (130-400); RBC Distribution Width 12.7 % (11.5-14.5); Red Blood Cell (RBC) Count 3.65 mill/uL (4.70-6.10); White Blood Cell (WBC) Count 8.1 10x3/uL (4.8-10.8)
[2022-09-01 04:38] LABS: ALT (SGPT) 10 U/L (8-55); AST (SGOT) 19 U/L (5-34); Albumin 3.4 g/dL (3.4-4.8); Alkaline Phosphatase 61 U/L (40-110); Anion Gap 14 mmol/L (10-20); BUN (Urea Nitrogen) 18 mg/dL (8.4-25.7); Bilirubin, Total 0.4 mg/dL (0.2-1.2); Calc. Creatinine Clearance 81 mL/min (70-130); Calcium 9.9 mg/dL (7.8-10.44); Carbon Dioxide 30 mmol/L (23-31); Chloride 94 mmol/L (98-107); Estimated GFR 96; Globulin 3.7 g/dL (2.4-3.5); Glucose 92 mg/dL (80-115); Potassium 4.4 mmol/L (3.5-5.1); Protein, Total 7.1 g/dL (5.8-8.1); Sodium 134 mmol/L (136-145)
[2022-09-01] MEDS: Acetaminophen 325 MG TAB PO SCH ×4 (05:20→23:03)
[2022-09-01] MEDS: Mometasone 100 MCG/PUFF (1 INHALER) INH SCH ×2 (06:46→19:00)
[2022-09-01] MEDS: traMADol HCl 50 MG TAB PO PRN ×3 (08:29→21:25)
[2022-09-01] MEDS: Hydrochlorothiazide 25 MG TAB PO SCH (08:29)
[2022-09-01] MEDS: Amlodipine 5 MG TAB PO SCH (08:29)
[2022-09-01] MEDS: Aripiprazole 10 MG TAB PO SCH (08:29)
[2022-09-01] MEDS: Polyethylene Glycol 3350 17 GM Packet PO SCH (08:31)
[2022-09-01] MEDS: Morphine 2 MG/ML VIAL SLOW IVP PRN (11:28)
[2022-09-01] MEDS: Cefepime 2 GM in Sodium Chloride 0.9% 100 ML IVPB SCH ×2 (11:28→23:01)
[2022-09-01] MEDS: Senokot 8.6 MG TAB PO SCH (21:01)
[2022-09-01] MEDS: Ibuprofen 200 MG TAB PO SCH (23:01)
[2022-09-02] MEDS: Ipratropium 200 Puff Oral Inhaler INH SCH ×4 (00:37→18:54)
[2022-09-02] MEDS: Albuterol 200 PUFF (6.7GM INHALER) INH SCH ×4 (00:37→18:53)
[2022-09-02] MEDS: Ibuprofen 200 MG TAB PO SCH ×3 (06:21→17:39)
[2022-09-02] MEDS: Acetaminophen 325 MG TAB PO SCH ×3 (06:21→17:39)
[2022-09-02] MEDS: Mometasone 100 MCG/PUFF (1 INHALER) INH SCH ×2 (07:09→18:54)
[2022-09-02 07:12] LABS: #Eosinphils 0.4 thou/uL (0.0-0.7); #Lymphocytes 1.3 thou/uL (1.20-3.40); %Basophils 0.3 % (0.0-1.0); %Eosinophils 5.7 % (0.0-10.0); %Lymphocytes 16.6 % (21.0-51.0); %Neutrophils 64.5 % (42.0-75.0); Hemoglobin 11.3 g/dL (14.0-18.0); Mean Corpuscular HGB CONC 30.8 g/dL (32.0-36.0); Mean Corpuscular Hemoglobin 29.5 pg (27.0-31.0); Mean Corpuscular Volume 95.7 fl (78.0-98.0); Platelet Count 599 10x3/uL (130-400); RBC Distribution Width 12.7 % (11.5-14.5); Red Blood Cell (RBC) Count 3.83 mill/uL (4.70-6.10); White Blood Cell (WBC) Count 7.8 10x3/uL (4.8-10.8)
[2022-09-02 07:15] LABS: ALT (SGPT) 10 U/L (8-55); AST (SGOT) 22 U/L (5-34); Albumin 3.6 g/dL (3.4-4.8); Alkaline Phosphatase 65 U/L (40-110); Anion Gap 16 mmol/L (10-20); BUN (Urea Nitrogen) 23 mg/dL (8.4-25.7); Bilirubin, Total 0.4 mg/dL (0.2-1.2); Calc. Creatinine Clearance 80 mL/min (70-130); Calcium 10.2 mg/dL (7.8-10.44); Carbon Dioxide 29 mmol/L (23-31); Chloride 94 mmol/L (98-107); Estimated GFR 95; Globulin 3.5 g/dL (2.4-3.5); Glucose 80 mg/dL (80-115); Potassium 5.2 mmol/L (3.5-5.1); Protein, Total 7.1 g/dL (5.8-8.1); Sodium 134 mmol/L (136-145)
[2022-09-02] MEDS: Amlodipine 5 MG TAB PO SCH (10:20)
[2022-09-02] MEDS: Aripiprazole 10 MG TAB PO SCH (10:20)
[2022-09-02] MEDS: Hydrochlorothiazide 25 MG TAB PO SCH (10:20)
[2022-09-02] MEDS: traMADol HCl 50 MG TAB PO PRN ×2 (10:20→21:21)
[2022-09-02] MEDS: Polyethylene Glycol 3350 17 GM Packet PO SCH (10:21)
[2022-09-02 10:40] LABS: Anion Gap 16 mmol/L (10-20); BUN (Urea Nitrogen) 23 mg/dL (8.4-25.7); Calc. Creatinine Clearance 78 mL/min (70-130); Calcium 10.3 mg/dL (7.8-10.44); Carbon Dioxide 29 mmol/L (23-31); Chloride 93 mmol/L (98-107); Estimated GFR 94; Glucose 107 mg/dL (80-115); Potassium 4.5 mmol/L (3.5-5.1); Sodium 133 mmol/L (136-145)
[2022-09-02] MEDS: Cefepime 2 GM in Sodium Chloride 0.9% 100 ML IVPB SCH (11:50)
[2022-09-02] MEDS: Morphine 2 MG/ML VIAL SLOW IVP PRN (11:50)
[2022-09-02] MEDS: Senokot 8.6 MG TAB PO SCH (21:22)
[2022-09-03] MEDS: Cefepime 2 GM in Sodium Chloride 0.9% 100 ML IVPB SCH ×2 (00:14→11:52)
[2022-09-03] MEDS: Ibuprofen 200 MG TAB PO SCH ×5 (00:14→23:58)
[2022-09-03] MEDS: Acetaminophen 325 MG TAB PO SCH ×4 (00:15→17:12)
[2022-09-03] MEDS: Albuterol 200 PUFF (6.7GM INHALER) INH SCH ×4 (02:05→18:00)
[2022-09-03] MEDS: Ipratropium 200 Puff Oral Inhaler INH SCH ×4 (02:06→18:00)
[2022-09-03] MEDS: Mometasone 100 MCG/PUFF (1 INHALER) INH SCH ×2 (07:20→18:01)
[2022-09-03] MEDS: Amlodipine 5 MG TAB PO SCH (08:14)
[2022-09-03] MEDS: Hydrochlorothiazide 25 MG TAB PO SCH (08:14)
[2022-09-03] MEDS: traMADol HCl 50 MG TAB PO PRN (08:14)
[2022-09-03] MEDS: Polyethylene Glycol 3350 17 GM Packet PO SCH (08:14)
[2022-09-03] MEDS: Aripiprazole 10 MG TAB PO SCH (08:14)
[2022-09-03] MEDS: traMADol HCl 50 MG TAB PO SCH ×3 (11:51→23:59)
[2022-09-03] MEDS: Morphine 2 MG/ML VIAL SLOW IVP PRN (11:52)
[2022-09-03] MEDS: HYDROcodone/Acetaminophen 5/325 mg Tablet PO PRN (21:23)
[2022-09-03] MEDS: Senokot 8.6 MG TAB PO SCH (21:24)
[2022-09-04] MEDS: Acetaminophen 325 MG TAB PO SCH
[2022-09-04] MEDS: Cefepime 2 GM in Sodium Chloride 0.9% 100 ML IVPB SCH ×3 (00:01→23:29)
[2022-09-04] MEDS: Ipratropium 200 Puff Oral Inhaler INH SCH ×4 (00:40→19:39)
[2022-09-04] MEDS: Albuterol 200 PUFF (6.7GM INHALER) INH SCH ×4 (00:40→19:39)
[2022-09-04] MEDS: Ibuprofen 200 MG TAB PO SCH ×4 (05:25→23:30)
[2022-09-04] MEDS: traMADol HCl 50 MG TAB PO SCH ×4 (05:27→23:30)
[2022-09-04] MEDS: Mometasone 100 MCG/PUFF (1 INHALER) INH SCH ×2 (08:35→19:39)
[2022-09-04] MEDS: Aripiprazole 10 MG TAB PO SCH (09:04)
[2022-09-04] MEDS: Polyethylene Glycol 3350 17 GM Packet PO SCH (09:04)
[2022-09-04] MEDS: Amlodipine 5 MG TAB PO SCH (09:04)
[2022-09-04] MEDS: Hydrochlorothiazide 25 MG TAB PO SCH (09:04)
[2022-09-04] MEDS: HYDROcodone/Acetaminophen 5/325 mg Tablet PO PRN ×2 (09:47→21:02)
[2022-09-04] MEDS: Senokot 8.6 MG TAB PO SCH (21:02)
[2022-09-04 22:57] VITALS: BP 100/68; TEMP 99.1
[2022-09-05] MEDS: Ipratropium 200 Puff Oral Inhaler INH SCH (00:07)
[2022-09-05] MEDS: Albuterol 200 PUFF (6.7GM INHALER) INH SCH (00:07)
== END 2022-09-05 01:00 | disposition short-term general hospital (02) | DRG 549 ==
LOC: T4-B 08-27 01:34 → OBSVTOIN 08-27 15:48 → EEVIPCON 08-27 15:48
PROVIDERS: ADMIT Student in an Organized Health Care Education/Training Program; ATTEND Student in an Organized Health Care Education/Training Program
PROC: 0J9Q0ZZ Drainage of Right Foot Subcutaneous Tissue and Fascia, Open Approach (ICD-10-PCS; principal; 2022-08-28)
PROC: 0HDMXZZ Extraction of Right Foot Skin, External Approach (ICD-10-PCS; 2022-08-28)
PROC: 02HV33Z Insertion of Infusion Device into Superior Vena Cava, Percutaneous Approach (ICD-10-PCS; 2022-08-31)
PROC: B5181ZA Fluoroscopy of Superior Vena Cava using Low Osmolar Contrast, Guidance (ICD-10-PCS; 2022-08-31)
PROC: B548ZZA Ultrasonography of Superior Vena Cava, Guidance (ICD-10-PCS; 2022-08-31)
DX: M00.9 Pyogenic arthritis, unspecified (principal); L02.415 Cutaneous abscess of right lower limb; L03.115 Cellulitis of right lower limb; J44.9 Chronic obstructive pulmonary disease, unspecified; I10 Essential (primary) hypertension; F31.9 Bipolar disorder, unspecified; F41.9 Anxiety disorder, unspecified; Z79.899 Other long term (current) drug therapy; Z87.891 Personal history of nicotine dependence; B96.5 Pseudomonas (aeruginosa) (mallei) (pseudomallei) as the cause of diseases classified elsewhere
CPT/HCPCS: 36415; 36416; 36569; 80053; 80202; 84550; 85025; 85652; 86140; 87040; 87070; 87077; 87186; 87205; 94640; 96372; 96374; 96375; 97139; A6448; C1751; G0378; J0692; J1650; J2272; J2405; J2704; J3010; J3370; J3370-JW; J3490; J7050; J7620; Q9967